=== PATIENT | male | born 1955 | race Hispanic/Latino ===

== ENCOUNTER 2019-03-26 18:21 | Inpatient (IN) | payer OTHER ==
--- OUTSIDE RECORDS SUMMARY | 2019-03-26 18:24 | XMS REPORT | Continuity of Care Document ---
:1955 Author Organization [employer] Care Team Providers Name Role Phone Kivra Unavailable Unavailable Problems Problem Status Onset Classification Date Comments Source Date Reported Depression with Active 09/01/19 Finding 09/01/[address] [facility] [place] Slurred speech Active 09/01/19 Finding 09/01/[address] [facility] [place] Hyperlipidemia Active 09/01/19 Finding 09/01/[address] [facility] [place] Tobacco abuse Active 09/01/19 Finding 09/01/[address] [facility] [place] Left sided Active 09/01/19 Finding 09/01/[address] [facility] numbness 18 [facility] [place] HTN Active 09/01/19 Finding 09/01/[address] [facility] (hypertension[facility] [place] Numbness on left Active 09/01/19 Finding 09/01/[address] [facility] side 18 [facility] [place] Weakness of left Active 09/01/19 Finding 09/01/[address] [facility] side of body 18 [facility] [place] Mixed anxiety Active 09/01/19 Finding 09/01/[address] [facility] depressive 18 [facility] - disorder [place] Hypertension Active 09/01/19 Finding 09/01/[address] [facility] [place] Migraine Active 05/17/20 Finding 09/01/[address] [facility] [place] Diabetes mellitus Active 05/17/20 Finding 09/01/[address] [facility] [place] Coronary artery Active 05/17/20 Finding 09/01/[address] [facility] disease 14 [facility] [place] Headache Active 05/17/20 Finding 09/01/[address] [facility] [place] Left-sided Active 05/17/20 Finding 09/01/[address] [facility] weakness 14 [facility] [place] History of TIA Active Finding 09/01/[address] [facility] (transient [facility] ischemic attack) [place] History of Active Finding 09/01/2017 [facility]. transient [facility] - cerebral ischemia [place] Medications Medication Details Route Status Patient Ordering Order Source Instructions Provider Date Glimepiride TWICE Active [facility] [place] Lisinopril DAILY [facility] [place] Metformin Er TWICE Active [facility]18 [facility] [place] Divalproex TWICE Active K[facility] Sodium DAILY 014 [facility] [place] Metformin Er TWICE Active Bur[facility] [place] Propranolol DAILY Active [facility] [place] Escitalopram DAILY Active [facility] 014 [facility] [place] Clopidogrel DAILY Active [facility] St[facility] Bisulfate 014 [facility] [place] Allergies, Adverse Reactions, Alerts No Known Medication Allergies Immunizations No Data Provided for This Section Results Order Name Results Value Reference Date Interpretation Comments Source Range Laboratory Bedside 179 65 - 120 09/01 [facility] Studies Glucose [facility] [place] Laboratory Creatine 2.5 0.3 - 4.0 09/01 [facility] St[facility] Studies Kinase MB /2017 [facility] [place] Laboratory Creatine 70 22 - 269 09/01 [facility] [address] Studies Kinase /2017 [facility] [place] Laboratory Troponin I <0.03 09/01 [facility] [address] Studies [facility] [place] Laboratory LDL 99 09/01 [facility] [address] Studies Cholesterol [facility] - Direct [place] Laboratory Triglycerides 413 35 - 160 09/01 [facility] [address] Studies Level /2018 [facility] [place] Laboratory Sodium Level 140 135 - 145 09/01 [facility] [address] Studies [facility] [place] Laboratory Potassium 4.1 3.6 - 5.0 09/01 [facility] [address] Studies Level /2017 [facility] [place] Laboratory Magnesium 2.0 1.8 - 2.5 09/01 [facility] [address] Studies Level /2018 [facility] [place] Laboratory LDL LDL 09/01 [facility] [address] Studies Cholesterol, Cholesterol [facility] - Calculated , [place] Calculated Laboratory HDL 20 27 - 67 09/01 [facility] [address] Studies Cholesterol [facility] [place] Laboratory Glucose Level 133 65 - 120 09/01 [facility] [address] Studies /2018 [facility] [place] Laboratory Estimat >90 90 09/01 [facility]. Studies Glomerular /2017 [facility] Filtration [place] Rate Laboratory Creatinine 0.81 0.61 - 09/01 [facility]. Studies 1.24 /2017 [facility] [place] Laboratory Cholesterol/H 8.10 09/01 [facility]. Studies DL Ratio /2017 [facility] [place] Laboratory Cholesterol 162 09/01 [facility]. Studies Level /2017 [facility] [place] Laboratory Chloride 107 101 - 111 09/01 [facility]. Studies Level /2017 [facility] [place] Laboratory Carbon 28 21 - 31 09/01 [facility]. Studies Dioxide Level /2017 [facility] [place] Laboratory Calcium Level 9.0 8.5 - 10.5 09/01 [facility]. Studies /2017 [facility] [place] Laboratory Blood Urea 14 6 - 20 09/01 [facility]. Studies Nitrogen /2017 [facility] [place] Laboratory White Blood 6.9 4.3 - 10.9 09/01 [facility]. Studies Count /2017 [facility] [place] Laboratory Red Cell 15.2 12.1 - 09/01 [facility] Studies Distribution 15.2 /2017 [facility] - Width [place] Laboratory Red Blood 4.77 4.33 - 09/01 [facility]. Studies Count 5.43 /2017 [facility] [place] Laboratory Platelet 125 152 - 406 09/01 [facility]. Studies Count /2017 [facility] [place] Laboratory Neutrophils % 44.4 41.7 - 09/01 [facility]. Studies 73.7 /2017 [facility] [place] Laboratory Monocytes % 7.4 3.3 - 12.3 09/01 [facility] [address]. Studies /2018 [facility] [place] Laboratory Mean Platelet 11.3 7.6 - 11.3 09/01 [facility]. Studies Volume /2017 [facility] [place] Laboratory Mean 83.8 80 - 100 09/01 [facility]. Studies Corpuscular /2017 [facility] - Volume [place] Laboratory Mean 33.0 32.0 - 09/01 [facility] Studies Corpuscular 36.0 [facility] - Hemoglobin [place] Concent Laboratory Mean 27.7 27.0 - 09/01 [facility]. Studies Corpuscular 35.0 [facility] - Hemoglobin [place] Laboratory Lymphocytes % 43.9 15.3 - 09/01 [facility] [address] Studies 44.8 /2017 [facility] [place] Laboratory Hemoglobin 13.2 13.6 - 09/01 [facility] [address] Studies 17.9 /2017 [facility] [place] Laboratory Hematocrit 40.0 39.6 - 09/01 [facility] [address] Studies 49.0 /2017 [facility] [place] Laboratory Eosinophils % 3.4 0 - 4.4 09/01 St. Studies /2017 [facility] [place] Laboratory Basophils % 0.9 0 - 1.3 09/01 [facility] St[facility] Studies /2017 [facility] [place] Laboratory Absolute 3.1 1.8 - 8.0 09/01 [facility]. Studies Neutrophil /2017 [facility] [place] Laboratory Absolute 0.5 0.1 - 1.3 09/01 [facility]. Studies Monocytes /2017 [facility] - (CBC) [place] Laboratory Absolute 3.1 0.7 - 4.9 09/01 [facility]. Studies Lymphocytes /2017 [facility] - (CBC) [place] Laboratory Absolute 0.2 0 - 0.5 09/01 [facility]. Studies Eosinophils /2017 [facility] - (CBC) [place] Laboratory Absolute 0.1 0 - 0.5 09/01 [facility]. Studies Basophils /2017 [facility] - (CBC) [place] Laboratory Hemoglobin 8.8 4 - 6.0 08/31 [facility]. Studies A1c [facility] [place] Laboratory Thyroid 2.93 0.34 - 08/31 [facility] Studies Stimulating 5.60 [facility] - Hormone (TSH) [place] Laboratory Urine pH 5.5 08/31 [facility] [address] Studies /2017 [facility] [place] Laboratory Urine Total Urine Total 08/31 [facility]. Studies Protein Protein /2017 [facility] [place] Laboratory Urine 1.010 08/31 [facility] [address] Studies Specific /2017 [facility] [place] Laboratory Urine Nitrite Urine 08/31 [facility]. Studies Nitrite /2017 [facility] [place] Laboratory Urine Urine 08/31 [facility]. Studies Leukocyte Leukocyte /2017 [facility] - Esterase Esterase [place] Laboratory Urine Ketones Urine 08/31 [facility]. Studies Ketones /2017 [facility] [place] Laboratory Urine Glucose Urine 08/31 [facility]. Studies Glucose /2017 [facility] [place] Laboratory Urine Blood Urine Blood 08/31 [facility] St[facility] Studies /2017 [facility] [place] Laboratory Urine WBC <5 08/31 [facility] [address] Studies /2017 [facility] [place] Laboratory Urine <5 08/31 [facility]. Studies Squamous /2017 [facility] - Epithelial [place] Cells Laboratory Urine RBC <5 08/31 [facility] St[facility] Studies /2017 [facility] [place] Laboratory Urine Culture Urine 08/31 [facility]. Studies Reflexed Culture /2017 [facility] Reflexed [place] Laboratory Urine Urine 08/31 [facility]. Studies Bacteria Bacteria /2017 [facility] [place] Laboratory B-Type 102 08/31 [facility]. Studies Natriuretic /2017 [facility] - Peptide [place] Laboratory Rapid <0.03 08/31 [facility] Studies Troponin I /2017 [facility] [place] Laboratory Total 0.6 0.3 - 1.2 08/31 [facility]. Studies Bilirubin /2017 [facility] [place] Laboratory Serum Total 7.3 6.0 - 8.3 08/31 [facility]. Studies Protein /2017 [facility] [place] Laboratory Globulin 3.2 2.3 - 3.5 08/31 [facility] St[facility] Studies /2017 [facility] [place] Laboratory Direct 0.2 0 - 0.2 08/31 [facility] Studies Bilirubin /2017 [facility] [place] Laboratory Aspartate 19 10 - 42 08/31 [facility]. Studies Amino Transf /2017 [facility] - (AST/SGOT) [place] Laboratory Alkaline 61 42 - 121 08/31 [facility]. Studies Phosphatase /2017 [facility] [place] Laboratory Albumin/Globu 1.3 1.1 - 1.8 08/31 [facility]. Studies alyson Ratio /2017 [facility] [place] Laboratory Albumin 4.1 3.2 - 5.5 08/31 [facility]. Studies /2017 [facility] [place] Laboratory Alanine 18 10 - 60 08/31 [facility]. Studies Aminotransfer /2017 [facility] ase [place] (ALT/SGPT) Laboratory Prothrombin 10.5 9.5 - 12.5 08/31 [facility]. Studies Time /2017 [facility] [place] Laboratory INR 0.89 08/31 [facility]. Studies International /2017 [facility] - Normalized [place] Ratio Laboratory Activated 24.0 24.3 - 08/31 [facility]. Studies Partial 36.9 /2018 [facility] - Thromboplast [place] Time Pathology Reports No Data Provided for This Section Diagnostic Reports No Data Provided for This Section Consultation Notes No Data Provided for This Section Discharge Summaries No Data Provided for This Section History and Physicals No Data Provided for This Section Vital Signs Vital Sign Value Date Comments Source Temperature Oral (F) 97.2 F 09/01/2017 [facility] [place] Heart Rate 58 09/01/[address] [facility] [address] [place] Respitory Rate 20 09/01/[address] [facility] [place] Systolic (mm Hg) 181 09/01/[address] [facility] [place] Diastolic (mm Hg) 82 09/01/[address] [facility] [address] [place] Height 64 08/31/[address] [facility] [place] Weight 186.00 08/31/[address] [facility] [place] Encounters Location Location Encounter Encounter Reason Attending ADM DC Status Source Details Type Number For Provider Date Date Visit [facility] St[facility] Discharged [id number] 08/31 09/01 [facility] [place] Procedures Procedure Code Date Perfomer Comments Source Barium Swallow [id number] [facility] Modified [facility] - [place] Chest Pa And [id number] [facility] Lat (2 Views) 8 - [place] Angio Aorta For [id number] [facility] Dissection 8 - [place] Chest Single [id number] [facility] View 8 - [place] Ct Stroke Brain [id number] [facility] Wo Cont 8 - [place] Assessment and Plan No Data Provided for This Section Plan of Care Plan of Care Date Source Instructions 09/01/[address] [facility] [place] DI for Stroke-Ischemic DI for Diabetes Type 2 DI for Coronary Artery Disease How to Quit Tobacco Products PROBLEM: slurred speech, left sided numbness, hypertension, depression with anxiety, Hyperlipidemia, cerebral vascular accident, History of transient ischemic attack, coronary artery disease, Diabetes mellitus, left sided weakness , Tobacco abuse GOAL: Clear understanding of disease process INSTRUCTIONS: Follow up with Dr Mckeon in 1-2 weeks Follow up with Dr Orellana in 1-2 weeks Follow up with Dr Brumfield in 1-2 weeks Instructions 09/01/[address] [facility] [address] [place] DI for Stroke-Ischemic DI for Diabetes Type 2 DI for Coronary Artery Disease How to Quit Tobacco Products PROBLEM: slurred speech, left sided numbness, hypertension, depression with anxiety, Hyperlipidemia, cerebral vascular accident, History of transient ischemic attack, coronary artery disease, Diabetes mellitus, left sided weakness , Tobacco abuse GOAL: Clear understanding of disease process INSTRUCTIONS: Follow up with Dr Mckeon in 1-2 weeks Follow up with Dr Orellana in 1-2 weeks Follow up with Dr Brumfield in 1-2 weeks Social History Social History Date Source Query Response Date Recorded Comment 07/06/1967 ERIK Damian - Mono Alcohol Use? No August 31, 2017 2:30pm CD- Drugs? No August 31, 2017 2:30pm Query Response Start Date Stop Date Smoking Status Heavy Tobacco smoker (>10 cigarettes/day) July 06[birth year] 1967 Family History Value Date Source Query Response Instance Date Recorded Comment 09/01/2017 ERIK Hagen Nurses notes 3 aneurysisms. Mother August 31, 2017 2:30pm Nurses notes lung cancer. Father August 31, 2017 2:30pm Medical History Stroke Mother August 31, 2017 2:30pm Medical History Cancer Father August 31, 2017 2:30pm Nurses notes lung cancer. May 16, 2014 3:27pm Medical History Cancer May 16, 2014 3:27pm Advance Directives Order Name Results Value Date Source Advance Directives Advance Directives Advance Directive Response Recorded Date/Time 09/01/2017 ERIK Guch[place] - Does Patient Have Living Will [place] No September 01, 2017 6:00am Durable Power of [employer] for Health Care No August 31, 2017 2:30pm Would you like additional information No August 31, 2017 2:02pm Functional Status No Data Provided for This Section
[2019-03-26] MEDS ORDERED: NA CHLORIDE 0.9% 2,000 ML ONE (19:04)
[2019-03-26 19:07] LABS: Absolute Lymphocytes (CBC) 0.6 K/uL (0.7-4.9); Basophils % 0.1 % (0-1.3); Hematocrit 36.5 % (39.6-49.0); Lymphocytes % 3.9 % (15.3-44.8); RBC Red Blood Cell Count 4.36 M/uL (4.33-5.43)
[2019-03-26 19:23] LABS: Protime INR 1.07
[2019-03-26 19:26] LABS: ALT/SGPT 16 U/L (12-78); AST/SGOT 15 U/L (15-37); Albumin 3.1 g/dL (3.4-5.0); Alkaline Phosphatase 63 U/L (45-117); BUN Blood Urea Nitrogen 19 mg/dL (7-18); Bicarbonate 25 mmol/L (21-32); Bilirubin Direct 0.1 mg/dL (0-0.2); Bilirubin Total 0.4 mg/dL (0.2-1.0); CKMB Creatine Kinase MB < 1.0 ng/mL (0.3-3.6); Creatine Phosphokinase 184 U/L (39-308); Glucose Level 245 mg/dL (74-106); Lipase 47 U/L (73-393); Potassium 4.2 mmol/L (3.5-5.1); Protein, Total 7.3 g/dL (6.4-8.2); Sodium Level 138 mmol/L (136-145); Troponin (Emerg Dept Use Only) 0.18 ng/mL (0.0-0.045)
[2019-03-26] MEDS ORDERED: FAMOTIDINE 20 MG/2 ML VIAL IV ONE (19:31)
[2019-03-26] MEDS ORDERED: ONDANSETRON 4 MG/2 ML VIAL ONE (19:31)
--- NOTE | 2019-03-26 19:39 | RAD REPORT ---
EXAM DESCRIPTION: RAD - Chest Single View - 03/26/2019 7:32 pm CLINICAL HISTORY: FEVER Chest pain. COMPARISON: Chest Pa And Lat (2 Views) dated 09/01/2017; Chest Single View dated 08/31/2017; CHEST SIN GLE VIEW dated 07/30/2011; CHEST SINGLE VIEW dated 05/23/2009 FINDINGS: Portable technique limits examination quality. The lungs are grossly clear. The heart is normal in size. No displaced fractures. IMPRESSION: No acute intrathoracic process suspected.
[2019-03-26 19:47] LABS: Blood Morphology Comment NOT SEEN (NOT SEEN); Platelet Estimate ADEQ
[2019-03-26] MEDS ORDERED: ACETAMINOPHEN 500 MG TAB ONE (19:50)
[2019-03-26] MEDS ORDERED: ASPIRIN 81 MG CHEWABLE TABLET ONE (20:11)
--- NOTE | 2019-03-26 20:20 | RAD REPORT ---
EXAM DESCRIPTION: CT - Head Brain Wo Cont - 03/26/2019 8:13 pm CLINICAL HISTORY: GALVAN, fever Headache, drowsiness COMPARISON: Ct Stroke Brain Wo Cont dated 08/31/2017; HEAD BRAIN W O CONTRAST dated 05/16/2014 TECHNIQUE: All CT scans are performed using dose optimization technique as appropriate and may inclu de automated exposure control or mA/KV adjustment according to patient size. FINDINGS: No intracranial hemorrhage, hydrocephalus or extra-axial fluid collection.No areas of brai n edema or evidence of midline shift. The paranasal sinuses and mastoids are clear. The calvarium is intact. IMPRESSION: No acute intracranial abnormality.
[2019-03-26] MEDS ORDERED: CEFTRIAXONE 1000 MG/VIAL ONE (20:43)
[2019-03-26] MEDS ORDERED: NA CHLORIDE 0.9% 100 ML IV ONE (20:43)
[2019-03-26] MEDS ORDERED: VANCOMYCIN 1 GM/VIAL ONE (21:29)
[2019-03-26] MEDS ORDERED: NA CHLORIDE 0.9% 250 ML ONE (21:30)
[2019-03-26] MEDS ORDERED: NA CHLORIDE 0.9% 1,000 ML ONE (21:30)
[2019-03-26 22:13] LABS: Urine Glucose 1+ (NEG); Urine Specific Gravity >1.030 (1.005-1.030)
[2019-03-26 22:14] LABS: Urine Blood 2+ (NEG); Urine Protein 3+ (NEG)
[2019-03-26 22:29] LABS: Urine Bacteria <20 /HPF (NONE SEEN); Urine Culture Reflex Order NOT NEEDED; Urine RBC <5 /HPF (NONE SEEN)
[2019-03-26 22:30] LABS: Urine Mucus 1+ /HPF (NONE SEEN)
--- NOTE | 2019-03-26 23:37 | ER ---
Nurse's Notes [facility] Name: Barrington Fletcher Age: 63 yrs Sex: Male : 1955 Arrival Date: 03/26/2019 Time: 18:23 Bed 5 Private MD: Diagnosis: Acute febrile illness;Leukocytosis;renal insufficiency;NSTEMI Presentation: 03/26 18:39 Presenting complaint: Patient states: I have had vomiting, Headache, chest pain, chills la1 since last night. Transition of care: patient was not received from another setting of care. Onset of symptoms was March 26, 2019. Risk Assessment: Do you want to hurt yourself or someone else? Patient reports no desire to harm self or others. Initial Sepsis Screen: Does the patient meet any 2 criteria? Temp <36.0*C (96.8*F)) or > 38.3*C (100.9*F). HR > 90 bpm. Yes Does the patient have a suspected source of infection? Yes: Productive cough/pneumonia. Care prior to arrival: None. 18:39 Method Of Arrival: Wheelchair la1 18:39 Acuity: EVIE 2 la1 18:40 Initial Sepsis Screen: If YES to both, name of provider notified: Sofi Sims MD. la1 Triage Assessment: 19:07 Headache History: The patient has had previous headaches and this one is different than ae4 previous episodes. General: Appears distressed, uncomfortable, Behavior is cooperative, appropriate for age, anxious, restless. Pain: Complains of pain in face and scalp Pain currently is 9 out of 10 on a pain scale. Pain began gradually, 1 day ago. Also complains of fever. Neuro: Level of Consciousness is awake, alert, obeys commands, Oriented to person, place, time, situation, Appropriate for age. Historical: - Allergies: 18:39 No Known Allergies; la1 - Home Meds: 19:23 divalproex 500 mg Oral Tb24 1 tab twice a day [Active]; escitalopram oxalate 10 mg Oral ak1 tab 1 tab once daily [Active]; lisinopril 20 mg Oral tab 1 tab once daily [Active]; metformin 500 mg Oral tr24 1 tab twice a day [Active]; Plavix 75 mg Oral tab 1 tab once daily [Active]; propranolol 60 mg Oral tab 1 tab daily [Active]; tramadol 50 mg Oral tab 1 tab every 4-6 hours as needed [Active]; - PMHx: 18:39 Diabetes - NIDDM; Hypertension; Myocardial infarction; x2; neuropathy; CVA; la1 - PSHx: 19:23 Carpal Tunnel Repair; cardiac stents; ak1 - Immunization history:: Adult Immunizations up to date. - Social history:: Smoking status: Patient uses tobacco products, smokes one pack cigarettes per day. - Ebola Screening: : No symptoms or risks identified at this time. - Family history:: not pertinent. - Hospitalizations: : No recent hospitalization is reported. Screenin:21 Abuse screen: Denies threats or abuse. Denies injuries from another. Nutritional ak1 screening: No deficits noted. Tuberculosis screening: No symptoms or risk factors identified. Fall Risk None identified. Assessment: 19:09 General: Appears distressed, uncomfortable, Behavior is cooperative, anxious, restless. ae4 19:21 Neuro: Level of Consciousness is awake, alert, obeys commands, Oriented to person, ak1 place, time, situation, Moves all extremities. Speech is normal. Cardiovascular: Heart tones S1 S2 Rhythm is sinus tachycardia. Respiratory: Airway is patent Respiratory effort is even, unlabored. GI: Abdomen is round non-distended, Bowel sounds present X 4 quads. Reports nausea, vomiting. : No signs and/or symptoms were reported regarding the genitourinary system. EENT: No signs and/or symptoms were reported regarding the EENT system. Derm: Reports fever. Musculoskeletal: Range of motion: intact in all extremities. 19:53 Reassessment: pt refused pain medication at this time. ak1 20:36 Reassessment: Patient appears in no apparent distress at this time. No changes from ak1 previously documented assessment. Patient and/or family updated on plan of care and expected duration. Pain level reassessed. Patient is alert, oriented x 3, equal unlabored respirations, skin warm/dry/pink. Patient states feeling better. pt no longer shaking uncontrollably. . 21:48 Reassessment: Patient appears in no apparent distress at this time. No changes from ak1 previously documented assessment. Patient and/or family updated on plan of care and expected duration. Pain level reassessed. Patient is alert, oriented x 3, equal unlabored respirations, skin warm/dry/pink. Vital Signs: 18:37 BP 166 / 64; Pulse 103; Resp 20; Temp 104.0(O); Pulse Ox 96% on R/A; Weight 81.65 kg; la1 Height 5 ft. 5 in. (165.10 cm); 19:46 BP 149 / 129; Pulse 112; Resp 17; Pulse Ox 96% on R/A; ak1 20:34 BP 169 / 54; Pulse 101; Resp 22; Temp 103.4(O); Pulse Ox 94% on R/A; Pain 0/10; ak1 21:28 BP 142 / 50; Pulse 95; Resp 23; Temp 100.9(O); Pulse Ox 95% on R/A; ak1 21:52 BP 125 / 53; Pulse 91; Resp 18; Pulse Ox 96% on R/A; ak1 23:05 Temp 99.9(O); em1 03/27 01:18 BP 105 / 44; Pulse 71; Resp 16; Temp 99.9; Pulse Ox 97% on R/A; ak1 03/26 18:37 Body Mass Index 29.95 (81.65 kg, 165.10 cm) la1 ED Course: 03/26 18:23 Patient arrived in ED. as 18:39 Arm band placed on left wrist. la1 18:40 Triage completed. la1 19:07 Inserted saline lock: 20 gauge in left antecubital area, using aseptic technique. Blood ae4 collected. 19:08 EKG done, by ED staff, reviewed by Sofi Sims MD. jb1 19:10 Bed in low position. Call light in reach. Side rails up X 1. Adult w/ patient. Cardiac ae4 monitor on. Pulse ox on. NIBP on. 19:20 Jose Nieto MD is Attending Physician. wa 19:20 Sakshi Hernandes, GIBRAN is Primary Nurse. ak1 19:21 Notified ED physician of a critical lab result(s). lactate 2.3. fc 19:33 Chest Single View XRAY In Process Unspecified. EDMS 19:47 Notified ED physician of a critical lab result(s). band of 10%. fc 20:14 CT completed. Patient tolerated procedure well. Patient moved back from CT. mw3 20:15 CT Head Brain wo Cont In Process Unspecified. EDMS 21:47 Repeat lab(s) drawn. by me, sent to lab. em1 23:35 Musa Francis DO is Hospitalizing Provider. wa 03/27 01:17 No provider procedures requiring assistance completed. Patient admitted, IV remains in ak1 place. Administered Medications: 03/26 19:07 Drug: NS 0.9% (30 ml/kg) 30 ml/kg Route: IV; Rate: bolus; Site: left antecubital; ae4 21:48 Follow up: IV Status: Completed infusion; IV Intake: 2500ml ak1 19:39 Drug: Zofran 4 mg Route: IVP; Site: left antecubital; ak1 20:04 Follow up: Response: No adverse reaction ak1 19:39 Drug: Pepcid 20 mg Route: IVP; Site: left antecubital; ak1 20:04 Follow up: Response: No adverse reaction ak1 19:52 Drug: Tylenol 1000 mg Route: PO; ak1 20:04 Follow up: Response: No adverse reaction ak1 20:34 Drug: Aspirin Chewable Tablet 324 mg Route: PO; ak1 20:37 Follow up: Response: No adverse reaction ak1 20:38 Drug: Rocephin - (cefTRIAXone) 2 grams Route: IVPB; Infused Over: 30 mins; Site: left ak1 antecubital; 21:47 Follow up: IV Status: Completed infusion; IV Intake: 100ml ak1 21:47 Drug: vancoMYCIN 1 grams Route: IVPB; Infused Over: 2 hrs; Site: left antecubital; ak1 23:50 Follow up: IV Status: Completed infusion; IV Intake: 250ml ak1 23:46 Drug: Lovenox 80 mg Route: Sub-Q; Site: left lower abdomen; ak1 23:46 Follow up: Response: No adverse reaction ak1 23:48 Not Given (Patient Refused): fentaNYL (PF) 50 mcg IVP once; RASS on ADMIN: Combtv4, ak1 Very Agttd3, Agttd2, Rstlss1, AlertClm0, Drwsy-1, Lt Sdtn-2, Mod Sdtn-3, Dp Sdtn-4, UnArsble-5 Point of Care Testing: Blood Glucose: 19:10 Blood Glucose: 245 mg/dL; ae4 Ranges: Intake: 21:47 IV: 100ml; Total: 100ml. ak1 21:48 IV: 2500ml; Total: 2600ml. ak1 23:50 IV: 250ml; Total: 2850ml. ak1 Outcome: 23:36 Decision to Hospitalize by Provider. ut 03/27 01:17 Admitted to Med/surg accompanied by tech, via stretcher, room 205, with chart, Report ak1 called to Cinthya Condition: improved Instructed on the need for admit. 01:37 Patient left the ED. ak1 Signatures: Dispatcher [employer] EDMS Adin Thompson Felicia, RN RN Sasha Monzon Eric em1 Hever Eastman RN RN Sakshi Agosto RN RN ak1 Jose Nieto MD MD wa Willis, Michelle 3 Yang Davalos RN RN ae4
--- NOTE | 2019-03-26 23:38 | EDPHYS ---
[facility] Name: Barrington Fletcher Age: 63 yrs Sex: Male : 1955 Arrival Date: 03/26/2019 Time: 18:23 Bed 5 Private MD: ED Physician Jose Nieto HPI: 03/26 19:36 This 63 yrs old Male presents to ER via Wheelchair with complaints of Headache.wa 19:36 The patient complains of pain to the generalized. The patient describes the headache as wa aching. Onset: The symptoms/episode began/occurred 1 day(s) ago. Associated signs and symptoms: Pertinent positives: fever, nausea, sinus congestion, vomiting, chills, Pertinent negatives: altered mental status, neck stiffness, Photophobia. Severity of symptoms: At its worst the pain was moderate, in the emergency department the pain is unchanged. Headache History: Denies prior headaches. The symptoms are alleviated by nothing. the symptoms are aggravated by nothing. The patient has not experienced similar symptoms in the past. The patient has not recently seen a physician. 63 yo male, c/o chills and fever. also vomiting. states GALVAN x 1 day as well. denies abd pain or diarrhea. admits to generalized body aches and back pain. also positive for chest pain. denies SOB. Historical: - Allergies: 18:39 No Known Allergies; la1 - Home Meds: 19:23 divalproex 500 mg Oral Tb24 1 tab twice a day [Active]; escitalopram oxalate 10 mg Oral ak1 tab 1 tab once daily [Active]; lisinopril 20 mg Oral tab 1 tab once daily [Active]; metformin 500 mg Oral tr24 1 tab twice a day [Active]; Plavix 75 mg Oral tab 1 tab once daily [Active]; propranolol 60 mg Oral tab 1 tab daily [Active]; tramadol 50 mg Oral tab 1 tab every 4-6 hours as needed [Active]; - PMHx: 18:39 Diabetes - NIDDM; Hypertension; Myocardial infarction; x2; neuropathy; CVA; la1 - PSHx: 19:23 Carpal Tunnel Repair; cardiac stents; ak1 - Immunization history:: Adult Immunizations up to date. - Social history:: Smoking status: Patient uses tobacco products, smokes one pack cigarettes per day. - Ebola Screening: : No symptoms or risks identified at this time. - Family history:: not pertinent. - Hospitalizations: : No recent hospitalization is reported. ROS: 19:39 Eyes: Negative for injury, pain, redness, and discharge, ENT: Negative for injury, wa pain, and discharge, Neck: Negative for injury, pain, and swelling, Respiratory: Negative for shortness of breath, cough, wheezing, and pleuritic chest pain, : Negative for injury, bleeding, discharge, and swelling, MS/Extremity: Negative for injury and deformity, Skin: Negative for injury, rash, and discoloration, Psych: Negative for depression, anxiety, suicide ideation, homicidal ideation, and hallucinations. 19:39 Constitutional: Positive for body aches, chills, fatigue, fever, malaise, Negative for weight loss. 19:39 Cardiovascular: Positive for chest pain, Negative for edema, orthopnea, palpitations. 19:39 Respiratory: Negative for cough, shortness of breath. 19:39 Abdomen/GI: Positive for nausea and vomiting, Negative for abdominal pain, diarrhea. 19:39 Back: Positive for pain at rest, of the lumbar area, left low back and right low back. 19:39 Neuro: Positive for headache, Negative for altered mental status, dizziness, speech changes, syncope. 19:39 All other systems are negative. Exam: 19:40 Head/Face: Normocephalic, atraumatic. Eyes: Pupils equal round and reactive to light, wa extra-ocular motions intact. Lids and lashes normal. Conjunctiva and sclera are non-icteric and not injected. Cornea within normal limits. Periorbital areas with no swelling, redness, or edema. ENT: Nares patent. No nasal discharge, no septal abnormalities noted. Tympanic membranes are normal and external auditory canals are clear. Oropharynx with no redness, swelling, or masses, exudates, or evidence of obstruction, uvula midline. Mucous membranes moist. Neck: Trachea midline, no thyromegaly or masses palpated, and no cervical lymphadenopathy. Supple, full range of motion without nuchal rigidity, or vertebral point tenderness. No Meningismus. Chest/axilla: Normal chest wall appearance and motion. Nontender with no deformity. No lesions are appreciated. Skin: Warm, dry with normal turgor. Normal color with no rashes, no lesions, and no evidence of cellulitis. MS/ Extremity: Pulses equal, no cyanosis. Neurovascular intact. Full, normal range of motion. Psych: Awake, alert, with orientation to person, place and time. Behavior, mood, and affect are within normal limits. 19:40 Constitutional: The patient appears in no acute distress, alert, febrile. 19:40 Cardiovascular: Rate: tachycardic, Rhythm: regular, Pulses: no pulse deficits are appreciated, Heart sounds: normal, Edema: is not appreciated, JVD: is not appreciated. 19:40 Respiratory: the patient does not display signs of respiratory distress, Respirations: normal, Breath sounds: are clear throughout, Respiratory rate: nml 19:40 Abdomen/GI: Inspection: abdomen appears normal, Bowel sounds: normal, Palpation: abdomen is soft and non-tender, in all quadrants. 19:40 Back: pain, is absent, ROM is normal, CVA tenderness, is absent. 03/27 09:00 Neuro: Orientation: is normal, Mentation: is normal, Cranial nerves: grossly normal, wa Motor: is normal. Vital Signs: 03/26 18:37 BP 166 / 64; Pulse 103; Resp 20; Temp 104.0(O); Pulse Ox 96% on R/A; Weight 81.65 kg; la1 Height 5 ft. 5 in. (165.10 cm); 19:46 BP 149 / 129; Pulse 112; Resp 17; Pulse Ox 96% on R/A; ak1 20:34 BP 169 / 54; Pulse 101; Resp 22; Temp 103.4(O); Pulse Ox 94% on R/A; Pain 0/10; ak1 21:28 BP 142 / 50; Pulse 95; Resp 23; Temp 100.9(O); Pulse Ox 95% on R/A; ak1 21:52 BP 125 / 53; Pulse 91; Resp 18; Pulse Ox 96% on R/A; ak1 23:05 Temp 99.9(O); em1 03/27 01:18 BP 105 / 44; Pulse 71; Resp 16; Temp 99.9; Pulse Ox 97% on R/A; ak1 03/26 18:37 Body Mass Index 29.95 (81.65 kg, 165.10 cm) la1 MDM: 03/26 19:20 Patient medically screened. wa 19:42 Differential diagnosis: febrile illness with GALVAN, vomiting, sinus congestion. eval to vt r/o viral vs bacterial etiology. sepsis protocol. will reassess. 23:10 Data reviewed: vital signs, nurses notes, lab test result(s), EKG, radiologic studies. vt Test interpretation: by ED physician or midlevel provider: EKG: Interp by me: HR 102. sinus tach. RBBB. diffuse ST-T changes. 23:12 Test interpretation: by ED physician or midlevel provider: labs noted for hyperglycemia vt at 245. renal insuff BUN 19, Cr 1.49. leukocytosis with bandemia. lactic acid 2.3. Troponin 0.18. UA noted for 2+ blood and 3+ protein. Response to treatment: the patient's symptoms have markedly improved after treatment. Physician consultation: Musa Francis DO. Admission orders: after a detailed discussion of the patient's condition and case, the admit orders are written by me. ED course: fluids given. abx given. pt improved. source still uncertain. states pressure in head when coughs otherwise no GALVAN. unlikely meningitis. will cover with abx empirically, admit and reassess. elevated troponin. ASA given. Will give a dose of lovenox. NSTEMI? . 03/26 18:45 Order name: Basic Metabolic Panel; Complete Time: 19:29 03/26 18:45 Order name: Blood Culture Adult (2) 03/26 18:45 Order name: CBC with Diff; Complete Time: 20:03 03/26 18:45 Order name: Ckmb; Complete Time: 19:30 03/26 18:45 Order name: CPK; Complete Time: 19:30 03/26 18:45 Order name: Lactate; Complete Time: 19:29 03/26 18:45 Order name: LFT's; Complete Time: 19:29 03/26 18:45 Order name: Lipase; Complete Time: 19:30 03/26 18:45 Order name: Procalcitonin; Complete Time: 20:03 03/26 18:45 Order name: Protime (+inr); Complete Time: 19:30 03/26 18:45 Order name: Ptt, Activated; Complete Time: 19:30 03/26 18:45 Order name: Troponin (emerg Dept Use Only); Complete Time: 19:30 la03/26 18:45 Order name: Urine Microscopic Only; Complete Time: 22:31 la 03/26 18:45 Order name: Flu; Complete Time: 20:03 [facility] 03/26 18:45 Order name: Chest Single View XRAY; Complete Time: 20:03 la1 03/26 18:45 Order name: Accucheck; Complete Time: 19:10 la 03/26 19:09 Order name: Manual Differential; Complete Time: 20:03 EDMS 03/26 19:31 Order name: CT Head Brain wo Cont; Complete Time: 20:26 wa 03/26 22:08 Order name: Urine Dipstick--Ancillary (enter results); Complete Time: 22:31 em1 03/26 22:08 Order name: Lactate Sepsis 2 HR Follow-up; Complete Time: 22:11 EDMS 03/26 22:32 Order name: Glucose, Ancillary Testing; Complete Time: 23:06 EDFL 03/26 18:45 Order name: Cardiac monitoring; Complete Time: 19:07 ri03/26 18:45 Order name: EKG - Nurse/Tech; Complete Time: 19:07 ri03/26 18:45 Order name: IV Saline Lock - Large Bore; Complete Time: 19:07 ri03/26 18:45 Order name: Labs collected and sent; Complete Time: 19:07 ri03/26 18:45 Order name: O2 Per Protocol; Complete Time: 19:07 ri03/26 18:45 Order name: O2 Sat Monitoring; Complete Time: 19:07 ri03/26 18:45 Order name: Urine Dipstick-Ancillary (obtain specimen); Complete Time: 22:07 la1 Administered Medications: 19:07 Drug: NS 0.9% (30 ml/kg) 30 ml/kg Route: IV; Rate: bolus; Site: left antecubital; ae4 21:48 Follow up: IV Status: Completed infusion; IV Intake: 2500ml ak1 19:39 Drug: Zofran 4 mg Route: IVP; Site: left antecubital; ak1 20:04 Follow up: Response: No adverse reaction ak1 19:39 Drug: Pepcid 20 mg Route: IVP; Site: left antecubital; ak1 20:04 Follow up: Response: No adverse reaction ak1 19:52 Drug: Tylenol 1000 mg Route: PO; ak1 20:04 Follow up: Response: No adverse reaction ak1 20:34 Drug: Aspirin Chewable Tablet 324 mg Route: PO; ak1 20:37 Follow up: Response: No adverse reaction ak1 20:38 Drug: Rocephin - (cefTRIAXone) 2 grams Route: IVPB; Infused Over: 30 mins; Site: left ak1 antecubital; 21:47 Follow up: IV Status: Completed infusion; IV Intake: 100ml ak1 21:47 Drug: vancoMYCIN 1 grams Route: IVPB; Infused Over: 2 hrs; Site: left antecubital; ak1 23:50 Follow up: IV Status: Completed infusion; IV Intake: 250ml ak1 23:46 Drug: Lovenox 80 mg Route: Sub-Q; Site: left lower abdomen; ak1 23:46 Follow up: Response: No adverse reaction ak1 23:48 Not Given (Patient Refused): fentaNYL (PF) 50 mcg IVP once; RASS on ADMIN: Combtv4, ak1 Very Agttd3, Agttd2, Rstlss1, AlertClm0, Drwsy-1, Lt Sdtn-2, Mod Sdtn-3, Dp Sdtn-4, UnArsble-5 Point of Care Testing: Blood Glucose: 19:10 Blood Glucose: 245 mg/dL; ae4 Ranges: Critical Glucose Levels:Adult <50 mg/dl or >400 mg/dl <40 mg/dl or >180 mg/dl Disposition: 03/26/19 23:36 Hospitalization ordered by Musa Francis for Inpatient Admission. Preliminary diagnosis are Acute febrile illness, Leukocytosis, renal insufficiency, NSTEMI. - Bed requested for Telemetry/MedSurg (Inpatient). - Status is Inpatient Admission. ak1 - Condition is Stable. - Problem is new. - Symptoms have improved. UTI on Admission? No Signatures: Dispatcher [employer] EDMS Hever Eastman RN RN Sakshi Agosto RN RN [email or web address] Poonam Fletcher RN RN Jose Nieto MD MD wa Elliott, Andrea RN RN ae4 Corrections: (The following items were deleted from the chart) 03/27 00:40 03/26 23:36 Hospitalization Ordered by Musa Francis DO for Inpatient Admission. cg Preliminary diagnosis is Acute febrile illness; Leukocytosis; renal insufficiency; NSTEMI. Bed requested for Telemetry/MedSurg (Inpatient). Status is Inpatient Admission. Condition is Stable. Problem is new. Symptoms have improved. UTI on Admission? No. vt 03/27 01:37 00:40 03/26/2019 23:36 Hospitalization Ordered by Musa Francis DO for Inpatient ak1 Admission. Preliminary diagnosis is Acute febrile illness; Leukocytosis; renal insufficiency; NSTEMI. Bed requested for Telemetry/MedSurg (Inpatient). Status is Inpatient Admission. Condition is Stable. Problem is new. Symptoms have improved. UTI on Admission? No. cg
[2019-03-26] MEDS ORDERED: ENOXAPARIN 80 MG/0.8 ML SQ ONE (23:44)
--- NOTE | 2019-03-27 00:38 | P.HP ---
Certification for Inpatient Patient admitted to: Inpatient With expected LOS: >2 Midnights Patient will require the following post-hospital care: None Practitioner: I am a practitioner with admitting privileges, knowledge of patient current condition, hospital course, and medical plan of care. Services: Services provided to patient in accordance with Admission requirements found in Title 42 Section 412.3 of the Code of Federal Regulations Patient History Date of Service: 03/27/19 Primary Care Provider: Dr. Orellana; Cardiology-Dr. Brumfield; Neurology-Dr. Mckeon; Surgery-Dr. Porras Reason for admission: Fever, chills, headache History of Present Illness: 63-year-old male presented to the emergency room with multiple complaints including fever, chills and headache. Patient with history of diabetes mellitus type 2 insulin dependent, hypertension , depression, dementia, history of TIA, hyperlipidemia, CAD with prior stent, and tobacco abuse. Patient has been having fever, chills and headaches over the last day. reports patient had nausea and vomiting last night. He denies any shortness of breath. Mild chest pain noted. Dry cough also noted. Patient slept the majority of the day. reported that she was sick last week likely with viral infection. He denies any photophobia, no neck pain. Patient came to the ER for further evaluation. In the ER patient evaluated. Vital signs stable. Fever noted. White count elevated at 16.4, hemoglobin 12.6, platelet count of 129. Patient had 84 neutrophils and 10 bands. Lactic acid initially elevated at 2.3. Pro calcitonin negative at 0.23. Troponin was elevated at 0.18. Urinalysis negative. CT head and negative. Chest x-ray negative. EKG shows no significant ST changes. Sodium 138, potassium 4.2, BUN of 19, creatinine 1.49 with a GFR 49. Glucose 245. In the ER patient received sepsis bolus. Patient also received vancomycin and Zosyn for suspected sepsis. Patient admitted for further evaluation and treatment. When I saw the patient ER, he appeared improved. Blood pressure stable. Patient recently seen by surgery for right diabetic great toe ulcer. MRI done about a month ago negative for osteomyelitis. No inflammatory changes noted. Patient had echocardiogram August 2017 which was unremarkable. Patient also had cardiac stress test unremarkable in August 2017. Patient appears stable this time. Allergies No Known Allergies Allergy (Unverified 05/16/14 15:37) Home medications list reviewed: Yes Home Medications: Clopidogrel Bisulfate [Plavix*] 75 mg PO DAILY 05/16/14 Escitalopram [Lexapro] 10 mg PO DAILY 05/16/14 Divalproex Sodium [Depakote] 500 mg PO BID #60 tablet. 05/17/14 Glimepiride [Amaryl*] 2 mg PO BID 08/31/17 Metformin ER [Glucophage ER*] 1,000 mg PO BID 08/31/17 Gabapentin 300 mg PO BID 02/24/19 Insulin Degludec [Tresiba Flextouch U-200] 20 unit SQ DAILY 02/24/19 Metoprolol Succinate/Hctz [Metoprolol ER-Hctz 25-12.5 mg] 1 each PO DAILY Rosuvastatin Calcium 20 mg PO BID 02/24/19 hydroCHLOROthiazide [Hydrodiuril] 25 mg PO DAILY 02/24/19 - Past Medical/Surgical History Diabetic: Yes -: Diabetes mellitus type 2, insulin dependent -: History of TIA -: CAD -: History of colon cancer -: HTN -: Hyperlipidemia -: Lumbar spondylosis -: Cervical spondylosis -: Depression -: Dementia -: Tobacco abuse -: Cardiac stents -: Scrotal surgery -: Bilateral carpal tunnel surgery Psychosocial/ Personal History: The patient is . He has several children. - Family History Father -: Cancer (Lung cancer) Notes: lung cancer. Mother -: Diabetes, Stroke (With history of brain aneurysm.) Notes: 3 aneurysisms. - Social History Smoking Status: Heavy Tobacco smoker (>10 cigarettes/day) Counseled patient to stop smoking for: less than 10 minutes Smoking therapy provided: Yes Patient receptive to therapy: No Alcohol use: No CD- Drugs: No Caffeine use: Yes Place of Residence: Home Review of Systems General: Fever, Chills, Weakness, Malaise, As per HPI Eyes: Unremarkable ENT: Nose Congestion, As per HPI Respiratory: Cough, As per HPI Cardiovascular: Chest Pain, As per HPI Gastrointestinal: Nausea, Vomiting, As per HPI Genitourinary: Unremarkable Musculoskeletal: Unremarkable Integumentary: Unremarkable Neurological: Unremarkable Lymphatics: Unremarkable Physical Examination - Physical Exam General: Alert, In no apparent distress, Oriented x3, Cooperative HEENT: Atraumatic, Normocephalic, PERRLA, Other (Dry mucous membranes) Neck: Supple, No Thyromegaly Respiratory: Clear to auscultation bilaterally, Normal air movement Cardiovascular: Normal pulses, Regular rate/rhythm Gastrointestinal: Normal bowel sounds, Soft and benign, Non-distended, No ascites, No tenderness, No masses, No rebound, No guarding Musculoskeletal: No erythema, No tenderness, No warmth Integumentary: No tenderness/swelling, No erythema, No warmth, No cyanosis, Other (Right great toe bandage. No erythema noted to the area of the foot) Neurological: Normal speech, Normal strength at 5/5 x4 extr, Normal tone, Normal affect - Studies Laboratory Data (last 24 hrs) 03/26/19 18:59: PT 12.6 H, INR 1.07, APTT 26.2 03/26/19 18:50: WBC 16.4 H, Hgb 12.6 L, Hct 36.5 L, Plt Count 129 L 03/26/19 18:50: Sodium 138, Potassium 4.2, BUN 19 H, Creatinine 1.46 H, Glucose 245 H, Total Bilirubin 0.4, AST 15, ALT 16, Alkaline Phosphatase 63, Lipase 47 L Microbiology Data (last 24 hrs): 03/26/19 18:56 Nasopharnyx Influenza Type A Antigen Screen - Final 03/26/19 18:56 Nasopharnyx Influenza Type B Antigen Screen - Final Assessment and Plan - Plan Impression: Fever, chills likely sepsis etiology unknown possible viral versus other infectious process Acute renal injury likely dehydration Elevated troponin with history of CAD and prior stent Diabetes mellitus type 2, insulin-dependent with hyperglycemia Hypertension Hyperlipidemia History of TIA Depression Dementia Chronic right great toe diabetic foot ulcer Tobacco abuse Plan: Fever, chills likely sepsis etiology unknown possible viral versus other infectious process: Patient will be admitted for further evaluation and treatment. Patient given sepsis bolus in the emergency room. Patient given IV antibiotic therapy as well. Chest x-ray/CT head/urinalysis negative. Possible underlying viral infection versus other bacterial process. Blood, urine culture pending. Will obtain sputum culture. Will also order echocardiogram to further assess. Troponin elevated. Will consult cardiology to further evaluate and monitor cardiac enzymes. Will provide DVT prophylaxis-Lovenox. Continue with IV vancomycin and cefepime. Pharmacy to monitor and adjust. Continue with IV fluids. Will monitor and adjust appropriately. Replacement protocol in place. Advanced directives address with patient and present. Patient is do not resuscitate. Daytime hospitalist will continue his care. Likely discharge in the next 3-5 days pending clinical improvement. Acute renal injury likely dehydration: Continue with IV fluids. Will monitor and adjust appropriately. Replacement protocol in place. Elevated troponin with history of CAD and prior stent: Patient had initial troponin elevated. Will continue to monitor cardiac enzymes and telemetry. Cardiology consulted to further evaluate. Prior echocardiogram and cardiac stress test in 2018 unremarkable. Patient may require further evaluation. Diabetes mellitus type 2, insulin-dependent with hyperglycemia: Continue with Accu-Cheks and provide sliding. May need to restart basal insulin. Hypertension: Restart home medication lisinopril 20 mg daily and metoprolol ER 25 mg daily. Will hold hydrochlorothiazide at this time. Will monitor and adjust appropriately. Hyperlipidemia: Continue Crestor 20 mg daily. History of TIA: Continue Plavix 75 mg daily. Continue DVT prophylaxis-Lovenox. Depression: Continue Lexapro 10 mg daily. Dementia: Continue Depakote 500 mg 1 pill twice daily. Chronic right great toe diabetic foot ulcer: Continue with current wound care instructions. Recent MRI done last month shows no osteomyelitis. Tobacco abuse: Continue address lifestyle modification education and tobacco cessation. Will provide nicotine patch. Discharge Plan: Home Plan to discharge in: Greater than 2 days - Advance Directives Does patient have a Living Will: No Does patient have a Durable POA for Healthcare: No - Code Status/Comfort Care Code Status Assessed: Yes (Patient is do not resuscitate.) Time Spent Managing Pts Care (In Minutes): 55
[2019-03-27] MEDS ORDERED: ACETAMINOPHEN 500 MG TAB PO PRN (01:43)
[2019-03-27 01:54] VITALS: BMI 33.4
[2019-03-27] MEDS: NACHLORIDE 0.45% 1,000 ML IV SCH ×4 (03:10→21:43)
--- NOTE | 2019-03-27 03:23 | P.INFCA ---
Sepsis Focused Assessment - Focused Assessment Complete? Sepsis Focused Assessment Completed?: Yes - Sepsis Screen Result Severe Sepsis: Positive Septic Shock: Negative - Vital Signs Reviewed: Yes Temperature: 98.1 F Heart rate: 68 Blood Pressure: 118/57 Respiratory Rate: 16 O2 Sat by Pulse Oximetry: 98 - Examination Date exam was performed: 03/27/19 Time exam was performed: 03:22 Heart: Regular rate/rhythm Lungs: Clear bilaterally Peripheral pulses: 3+ Normal Peripheral pulse location: Radial Capillary refill: >2 Seconds Skin examination: Normal turgor
[2019-03-27] MEDS: INSULIN -REGULAR HUMAN 50 UNIT/0.5 ML ML SQ SCH ×4 (07:30→21:00)
[2019-03-27 08:00] LABS: CKMB Creatine Kinase MB 1.7 ng/mL (0.3-3.6); Thyroid Stimulating Hormone 1.65 uIU/mL (0.360-3.740); Troponin I 0.12 ng/mL (0.0-0.045)
[2019-03-27] MEDS ORDERED: VANCOMYCIN 1.25 GM in NA CHLORIDE 0.9% 250 ML IVPB ONE (09:00)
[2019-03-27] MEDS ORDERED: FAMOTIDINE 20 MG TAB PO SCH (09:00)
[2019-03-27] MEDS ORDERED: ENOXAPARIN 40 MG/0.4 ML SQ SCH (09:00)
[2019-03-27] MEDS ORDERED: CEFEPIME 1 GM/VIAL IV SCH (09:00)
[2019-03-27] MEDS: ACETAMINOPHEN 325 MG TABLET PO PRN ×4 (09:24→21:36)
[2019-03-27] MEDS: CEFEPIME/SWI 1gm 10 ML IVP SCH (09:24)
[2019-03-27] MEDS: ESCITALOPRAM 20 MG TAB PO SCH (09:25)
[2019-03-27] MEDS: METOPROLOL XL 25 MG TAB PO SCH (09:25)
[2019-03-27] MEDS: CLOPIDOGREL 75 MG TABLET PO SCH (09:26)
[2019-03-27] MEDS: DIVALPROEX DR 500MG TAB PO SCH ×2 (09:26→21:37)
[2019-03-27] MEDS: FAMOTIDINE 20 MG TAB PO SCH (09:26)
--- NOTE | 2019-03-27 11:01 | PN ---
Date of Progress Note: 03/27/2019 Subjective: Patient is seen and examined. Chart reviewed and case discussed with RN. The patient continues to have tremors and chills. Complains of some mild headache. Medications: List reviewed. Code Status: Do not attempt resuscitation. Physical Examination: Vital Signs: T-max 101.9, heart rate 67, blood pressure 133/63, respirations 15. O2 at 96% on room air. General: Awake, alert, oriented x3, in some mild distress, ill-appearing male, obese. CV: S1 and S2. Regular rate and rhythm. Peripheral pulses present. Respiratory: Moving air well bilaterally. No wheezing or stridor. Gastrointestinal: Abdomen is soft, nontender, nondistended. Positive bowel sounds. Extremities: No clubbing, cyanosis, or edema. Neuro: Cranial nerves 2 through 12 intact grossly. No focal neurological deficit. Speech is normal. Laboratory Data: CK level is 466. Troponin is 0.18 and 0.12. Triglycerides 146, cholesterol 98, LDL 43, HDL 26, TSH 1.65. Lactate down to 1.2. Blood glucose level 131 and 197. Blood cultures pending. Influenza screen is negative. Sputum cultures are pending. Assessment And Plan: A 63-year-old male with. 1. Sepsis. The patient received sepsis IV fluid bolus. Source unclear. Likely foot wound versus viral or other bacterial process. No signs of meningitis. We will continue with broad-spectrum IV antibiotics and follow up on cultures. Imaging studies negative. Influenza screen is also negative. The patient continues to have high spiking fevers. We will continue with IV antibiotics and monitor. 2. Acute kidney injury likely secondary to above. We will continue to monitor. Continue with IV fluids. 3. Elevated troponin level with history of coronary artery disease and prior stent. We will continue with home medications. Continue to monitor troponin level, trending down. No ST-elevation on EKG. Cardiology consulted. 4. Diabetes mellitus type 2, insulin requiring with hyperglycemia. Continue with sliding scale insulin and monitor blood glucose levels. 5. Coronary artery disease, [place] artery and [place] heart, status post stent without angina. 6. Essential hypertension. Continue home medications. Hold HCTZ and IVY inhibitor. 7. Hyperlipidemia. Continue Crestor. 8. History of transient ischemic attack. Continue Plavix. 9. Major depressive disorder, single episode, in remission. We will continue Lexapro. 10. Dementia, likely vascular. The patient is on Depakote. 11. Subacute on chronic great toe diabetic foot ulcer. Recent MRI did not show any osteo. Patient does have pustular drainage from the wound. We will consult Dr. Porras, who did recent surgery and obtain wound cultures. 12. Nicotine dependence with cigarette smoking counseled. Continue nicotine patch. 13. Deep vein thrombosis prophylaxis with Lovenox. SA/MODAi Voice ID: [id number] Report ID: [id number] [id number]
--- NOTE | 2019-03-27 13:19 | EKG ---
Test Date: 2019-03-26 Test Time: 18:55:08 Dampener Operator: MATTHEW MEASUREMENT RESULTS: Intervals: Rate: 102 LA: 144 QRSD: 122 QT: 348 QTc: 453 [place]: P: 43 LA: 144 QRS: 105 T: 52 INTERPRETIVE STATEMENTS: Sinus tachycardia Right bundle branch block Abnormal ECG Compared to ECG 08/31/2017 10:53:11 Sinus rhythm no longer present Electronically Signed On 03-27-19 13:18:32 CDT by Saurabh Campbell
[2019-03-27 13:46] LABS: CKMB Creatine Kinase MB 1.4 ng/mL (0.3-3.6); Troponin I 0.14 ng/mL (0.0-0.045)
[2019-03-27] MEDS: ENOXAPARIN 40 MG/0.4 ML SQ SCH (14:07)
[2019-03-27] MEDS: OSELTAMIVIR 75 MG CAP PO SCH ×2 (14:07→21:38)
--- NOTE | 2019-03-27 15:37 | CON ---
Date of Consultation: 03/27/2019 Reason For Consultation: Fever, right toe infection. History Of Present Illness: Patient is a 63-year-old gentleman, who presented to the emergency room with 2-day history of fever, chills, and headache especially after coughing, is the patient who I hav e been following him in the wound healing center for right toe infection. He did have a diabetic [facility] er. We did an x-ray, which was not suggestive of osteo, just inflammation. He was treated with anti biotics. He was improving. He also had an MRI about a month ago, which was negative for osteo. I s aw him last week and his wound looked good. He is on Hillary dressing, however, the last couple of da ys, the toe has become worse and he also had some nausea and vomiting yesterday. No shortness of lina ath. No sore throat, runny nose, cough, except for some dry cough, which causes patient's headache. He does have fever and chills. Past Medical History: Significant for type 2 diabetes, history of TIA, coronary artery disease, hist ory of colon cancer, hypertension, hyperlipidemia, lumbar spondylosis, cervical spondylosis, depressi on, dementia, tobacco abuse. Past Surgical History: Scrotal surgery, cardiac surgery, carpal tunnel surgery. Allergies: NONE. Social History: He does smoke. Denies drinking alcohol. He was counseled regarding smoking. Family History: Significant for diabetes, stroke, and brain aneurysm in the mother, lung cancer in t he father. Physical Examination: Current Vital Signs: Blood pressure of 160/58, pulse rate 88, respiratory rate 18, temperature 101.9 . General: He is awake, alert, and oriented x3. Head And Neck: Cranial nerves 2 through 12 are grossly within normal limits. No neck masses. No JV D. Throat clear. Neck is supple. Chest: Clear. Heart: S1, S2. Abdomen: Soft, nondistended, nontender. Positive bowel sounds. Extremities: Palpable dorsalis pedis pulse, however, the posterior tibial is diminished. Right grea t toe has increasing redness. There is small amount of fluid trapped in the ulcer, appears that the skin is overgrown, but there is some fluctuance to it. There was some pus that came out of it, which was cultured by the nurse at the bedside under sterile condition. I did debride the wound a little bit more to prevent fluid from accumulating inside the ulcer and this was done with 11 blade. Approx imately a 1 cm area was excised down through to the subcutaneous tissue. Patient has no feeling, so he did not require any anesthetic and he tolerated the procedure well. Wet-to-dry normal saline dres sing change was applied. Laboratory Data: Significant for white count of 16.4 with a left shift. Bands are 10. His INR is 1 .07. His chemistry is reviewed. His lactic acid was 2.3 yesterday and it came down to 1.2. Procalc itonin was 0.23. He had a chest x-ray and CT of the head, which were negative. Assessment: A 63-year-old gentleman with multiple medical problems with sepsis, etiology could be vi ral in nature based on overall symptomology, however, the right great toe does look worse. Plan: Recommendation would be to continue IV antibiotics. We will get an MRI of the right great toe as well as arterial Doppler to assess his vascular status and will make further recommendation after the aforementioned workup is completed. Currently, the patient is on vancomycin and cefepime, which should suffice and we will adjust the antibiotics based on the cultures, which are pending at this t [facility]. GWENDOLYN/MARGOTHL Voice ID: [id number] Report ID: [id number]
[2019-03-27] MEDS ORDERED: VANCOMYCIN 1.5 GM in NA CHLORIDE 0.9% 500 ML IVPB SCH (18:00)
--- NOTE | 2019-03-27 18:15 | RAD REPORT ---
EXAM DESCRIPTION: US - Lower Extremity Arterial Bilat - 03/27/2019 5:52 pm CLINICAL HISTORY: Right foot ulcer, leg pain COMPARISON: None. TECHNIQUE: Waveforms were obtained along the length of each lower extremity. Visual inspection of th e lower extremity arterial tree performed. FINDINGS: Right lower extremity triphasic waveform pattern is seen in the common femoral, superficia l femoral and popliteal arteries. At the ankle the posterior tibial and dorsalis pedis artery show bi phasic waveform patterns. Atherosclerotic changes are mild with no occlusion or focal flow restrictin g lesion identifiable. Left lower extremity shows a similar triphasic waveform pattern in the common femoral, superficial fe moral and popliteal arteries. Left dorsalis pedis and posterior tibial arteries are biphasic in wavef orm. Again, atherosclerotic changes are mild with no occlusion or focal flow restricting lesion. IMPRESSION: Mild atherosclerotic changes in the booth of the bilateral lower extremity arterial tree . No occlusion or focal flow restricting lesion.
[2019-03-27] MEDS ORDERED: LISINOPRIL 10 MG TAB PO SCH (21:00)
[2019-03-27] MEDS: ROSUVASTATIN 10 MG TAB PO SCH (21:36)
[2019-03-28] MEDS: ACETAMINOPHEN 325 MG TABLET PO PRN ×4 (02:38→21:37)
[2019-03-28 06:11] LABS: Absolute Lymphocytes (CBC) 0.8 K/uL (0.7-4.9); Basophils % 0.5 % (0-1.3); Hematocrit 33.1 % (39.6-49.0); MPV 11.6 fL (7.6-11.3); RBC Red Blood Cell Count 3.94 M/uL (4.33-5.43)
[2019-03-28 06:12] LABS: Magnesium 2.2 mg/dL (1.8-2.4)
[2019-03-28] MEDS: NACHLORIDE 0.45% 1,000 ML IV SCH ×2 (07:18→17:43)
[2019-03-28] MEDS: INSULIN -REGULAR HUMAN 50 UNIT/0.5 ML ML SQ SCH ×4 (07:30→21:00)
--- NOTE | 2019-03-28 08:56 | RAD REPORT ---
EXAM DESCRIPTION: MRI - Foot Right Wo Cont - 03/28/2019 8:28 am CLINICAL HISTORY: RIGHT GREAT TOE FOOT ULCER Foot ulcer. COMPARISON: Foot Right Wo Cont dated 03/02/2019 FINDINGS: Soft tissue edema and thickening is present in both the distal aspect of the great toe. Th e distal phalanx demonstrates areas of mild reduced T1 marrow signal and elevated T2/IR signal along the distal dorsal aspect of the toe compatible with mild osteomyelitis. No drainable fluid collection seen. No osteomyelitis seen elsewhere within the foot. No fracture or subluxation. Plantar fascia an d Achilles tendon are normal in thickness. IMPRESSION: Early/mild osteomyelitis suspected involving the distal phalanx of the great toe along t he dorsal aspect.
[2019-03-28] MEDS: INSULIN DEGLUDEC 20 UNIT SQ SCH (09:00)
--- NOTE | 2019-03-28 09:04 | CON ---
Date of Consultation: 03/27/2019 Reason For Consultation: Elevated troponin, sepsis and foot ulcers. History Of Present Illness: Mr. Fletcher is 63, has a history of dementia, depression, seizure disorde r, hypertension, diabetes, history of TIA, history of CAD, status post stent, continuing tobacco use, dementia, is a do not resuscitate, came in with sepsis, probably secondary to his foot ulcers. Trop onin is elevated. No chest pain reported. Past Medical History: As stated above. Allergies: NONE. Review of Systems: Negative. Social History: Negative. Family History: Negative. Medications: At home include Lexapro, Depakote, metoprolol, insulin, lisinopril and hydrochlorothiaz fabienne. Physical Examination: General: He was somnolent. He is oriented to name and place. Vital Signs: His temperature was 104 with blood pressure of 166/64. HEENT: Negative. Neck: Supple with no bruit. Chest: Clear. Cardiac: Revealed regular rhythm and rate with S4 gallops. No murmurs or rubs. Abdomen: Benign. Extremities: Revealed foot ulcers in the left. Diagnostic Data: His glucose is 131, creatinine is 1.46. His troponin is 0.18 and then went down to 0.12. Impression And Plan: Elevated troponin secondary to fever and sepsis. We would get an echocardiogra m to rule out wall motion abnormalities. The patient has a history of coronary artery disease, statu s post PCI that seems to be stable. He has no chest pain. He is do not resuscitate and has dementia . I doubt we are going to do any invasive workup on him at this point. His hypertension is reasonab ly well controlled. His diabetes is reasonably well controlled. He has had transient ischemic attac k in the past. He has renal insufficiency that is moderate. He has a foot ulcer that needs to be ad dressed. A new surgical consultation is obtained. We will continue to follow him. EMORY/ALEX Voice ID: [id number] Report ID: [id number]
[2019-03-28] MEDS: CEFEPIME/SWI 1gm 10 ML IVP SCH (10:08)
[2019-03-28] MEDS: ENOXAPARIN 40 MG/0.4 ML SQ SCH (10:09)
[2019-03-28] MEDS: ESCITALOPRAM 20 MG TAB PO SCH (10:10)
[2019-03-28] MEDS: CLOPIDOGREL 75 MG TABLET PO SCH (10:10)
[2019-03-28] MEDS: OSELTAMIVIR 75 MG CAP PO SCH ×2 (10:10→21:00)
[2019-03-28] MEDS: DIVALPROEX DR 500MG TAB PO SCH ×2 (10:11→21:37)
[2019-03-28] MEDS: METOPROLOL XL 25 MG TAB PO SCH (10:11)
[2019-03-28] MEDS: FAMOTIDINE 20 MG TAB PO SCH (10:30)
[2019-03-28] MEDS: VANCOMYCIN 1.5 GM in NA CHLORIDE 0.9% 500 ML IVPB SCH (10:31)
[2019-03-28] MEDS ORDERED: HYDRALAZINE HCL 20 MG/ML VIAL ONE (10:47)
[2019-03-28] MEDS ORDERED: NITROGLYCERIN 0.4 MG/TAB SL ONE ×2 (10:48→10:52)
[2019-03-28] MEDS: HYDRALAZINE HCL 20 MG/ML VIAL IV PRN ×3 (10:51→21:38)
[2019-03-28] MEDS ORDERED: NITROGLYCERIN 0.4 MG/TAB SL PRN (10:56)
[2019-03-28] MEDS ORDERED: LORazepam 2 MG/ML VIAL IV ONE (10:56)
--- NOTE | 2019-03-28 13:02 | ECHO ---
HEIGHT: 5 ft 4 in WEIGHT: 194 lb 9.6 oz DATE OF STUDY: 03/28/[address]: Musa Francis DO 2-DIMENSIONAL: YES M.MODE: YES DOPPLER: YES COLOR FLOW: YES TDS: NO PORTABLE: NO DEFINITY: NO BUBBLE STUDY: NO DIAGNOSIS: SEPSIS CARDIAC HISTORY: CATHERIZATION: YES SURGERY: NO PROSTHETIC VALVE: NO PACEMAKER: NO MEASUREMENTS (cm) DIASTOLIC (NORMALS) SYSTOLIC (NORMALS) IVSd 1.1 (0.6-1.2) LA Diam 3.4 (1.9-4.0) LVEF 67% LVIDd 4.6 (3.5-5.7) LVIDs 2.9 (2.0-3.5) %FS 37% LVPWd 1.1 (0.6-1.2) Ao Diam 2.4 (2.0-3.7) 2 DIMENSIONAL ASSESSMENT: RIGHT ATRIUM: NORMAL LEFT ATRIUM: NORMAL RIGHT VENTRICLE: NORMAL LEFT VENTRICLE: NORMAL TRICUSPID VALVE: NORMAL MITRAL VALVE: NORMAL PULMONIC VALVE: NORMAL AORTIC VALVE: NORMAL PERICARDIAL EFFUSION: NONE AORTIC ROOT: NORMAL LEFT VENTRICULAR WALL MOTION: NORMAL. DOPPLER/COLOR FLOW: TRACE OF MITRAL REGURGITATION OTHERWISE NORMAL. COMMENTS: NORMAL 2D ECHO WITH A TRACE OF MITRAL REGURGITATION. TECHNOLOGIST: STEPHANIE SCHMIDT
--- NOTE | 2019-03-28 13:26 | PN ---
Date of Progress Note: 03/28/2019 Subjective: Patient went for MRI of the foot. After returning the patient started having headache a nd then started having his tremor episode again. No seizure-type activity witnessed and blood pressu re was elevated, improved with nitroglycerin and hydralazine. Medications List: Reviewed. Physical Examination: Vital Signs: Temperature 98.5, heart rate 75, blood pressure 161/70, respirations 18, O2 at 93% on r oom air. General: Awake, alert, oriented x3, in some moderate distress. Ill-appearing male, appears older th an stated age. Obese, BMI 33. CV: S1 and S2. Peripheral pulses weak. Regular rate and rhythm. Respiratory: Moving air well bila terally. No wheezing or stridor Gastrointestinal: Abdomen is soft, nontender, nondistended. Positi ve bowel sounds. No guarding or rigidity. Extremities: No clubbing, cyanosis, or edema. Neurologic: Nonfocal. Patient having tremors in the whole body and chills. Awake and alert, orient ed x3. Skin: Right first digit, mild erythema, warm to touch with wound on the medial aspect with some drai nage. Laboratory Data: Sodium 138, potassium 4, chloride 105, CO2 of 27, BUN 23, creatinine 1.19, glucose is 134, calcium 7.7, magnesium 2.2. WBC 8.3, H and H 11 and 33.1, platelets 119. Blood cultures preliminarily showing beta-hemolytic strep. Sputum cultures pending. Wound cultures from the right toe showing 3+ gram-negative rods. MRI of the foot personally reviewed, shows early m ild osteomyelitis suspected involving the distal phalanx of the great toe along the dorsal aspect. Assessment: A 63-year-old male with: 1.Sepsis secondary to osteomyelitis of the foot, possible influenza and bacteremia. Blood cultures growing out strep. Wound cultures from the toe are growing out gram-negative rods. The patient had high fevers, currently having low-grade fevers, 99. WBC count is improving. We will continue broad- spectrum IV antibiotics and follow up on final ID and sensitivity of the cultures. 2.Osteomyelitis of the right first toe. Dr. Porras has been consulted. Will likely need amputation. Follow up on wound cultures, currently growing gram-negative rods. 3.Bacteremia secondary to strep. We will continue IV antibiotics and follow up on final culture res ults. 4.Elevated troponin level likely secondary to sepsis. Appreciate Cardiology input. No intervention planned at this time. We will continue to monitor. 5.Acute kidney injury secondary to sepsis. Creatinine is now back to baseline. We will continue to monitor. Continue IV fluids. 6.Tremors, unclear etiology, likely related to anxiety and possible chills and from fever, improved with medication and redirection. 7.Headache, likely related to uncontrolled blood pressure. 8.Essential hypertension. Blood pressure in the 200s systolic this morning, improved with IV hydral azine and nitroglycerin. We will adjust home medications. Currently, his hydrochlorothiazide and AC E inhibitors being held. We will resume due to kidney function normalizing. 9.Coronary artery disease [place] artery and [place] heart status post stent with angina, improved. 10.Diabetes mellitus type 2, insulin requiring with hyperglycemia. We will continue sliding scale i nsulin. Monitor blood glucose levels. 11.Mixed hyperlipidemia. We will continue Crestor. 12.History of transient ischemic attack. Continue Plavix. 13.Major depressive disorder, single episode, in remission. We will continue Lexapro. 14.Vascular dementia. 15.Nicotine dependence with cigarette smoking counseled. We will continue nicotine patch. 16.Deep venous thrombosis prophylaxis with Lovenox. 17.Diabetic foot ulcer, first toe on the right. Continue antibiotics and wound care. /ALEX Voice ID: [id number] Report ID: [id number]
--- NOTE | 2019-03-28 13:35 | EKG ---
Test Date: 2019-03-28 Test Time: 10:45:44 Ladle Cleaner: MIKO MEASUREMENT RESULTS: Intervals: Rate: 80 CO: 154 QRSD: 118 QT: 412 QTc: 475 [place]: P: 36 CO: 154 QRS: 87 T: 33 INTERPRETIVE STATEMENTS: Normal sinus rhythm Low voltage QRS Right bundle branch block Abnormal ECG Compared to ECG 03/26/2019 18:55:08 Low QRS voltage now present Sinus tachycardia no longer present Electronically Signed On 03-28-19 13:34:20 CDT by Andrews Brumfield
--- NOTE | 2019-03-28 16:55 | RAD REPORT ---
EXAM DESCRIPTION: RAD - Chest Single View - 03/28/2019 4:44 pm CLINICAL HISTORY: Device placement PICC line placement . IMPRESSION: PICC line with its tip 1 centimeter into the right atrium
[2019-03-28] MEDS: TRAMADOL HCL 50 MG TAB PO PRN (17:52)
[2019-03-28] MEDS: ONDANSETRON 4 MG/2 ML VIAL IV PRN (18:39)
--- NOTE | 2019-03-28 19:29 | PN ---
Date of Progress Note: 03/28/2019 Subjective: The patient is awake and alert. No complaints. Vital signs are stable. Afebrile. MRI shows early osteomyelitis distal phalanx. Arterial Doppler reviewed. Physical Examination: No significant change. Cultures pending. Assessment: Toe infection with wound with osteomyelitis. Recommendations: Wound care is ordered. PICC line. Six weeks of IV antibiotics based on the cultur e report. We will try conservative treatment. No need for amputation at this time. Discussed with Dr. Thompson. /MODL Voice ID: [id number] Report ID: [id number]
[2019-03-28] MEDS: ROSUVASTATIN 10 MG TAB PO SCH (21:37)
[2019-03-29] MEDS: NACHLORIDE 0.45% 1,000 ML IV SCH ×3 (03:02→17:44)
[2019-03-29] MEDS: HYDRALAZINE HCL 20 MG/ML VIAL IV PRN ×3 (05:05→18:46)
[2019-03-29 05:26] LABS: Absolute Lymphocytes (CBC) 1.2 K/uL (0.7-4.9); Basophils % 0.6 % (0-1.3); Hematocrit 30.4 % (39.6-49.0); Lymphocytes % 13.4 % (15.3-44.8); MPV 10.5 fL (7.6-11.3); RBC Red Blood Cell Count 3.65 M/uL (4.33-5.43)
[2019-03-29 05:40] LABS: Magnesium 2.2 mg/dL (1.8-2.4); Potassium 3.8 mmol/L (3.5-5.1)
[2019-03-29] MEDS: INSULIN -REGULAR HUMAN 50 UNIT/0.5 ML ML SQ SCH ×4 (07:30→21:00)
[2019-03-29] MEDS: TRAMADOL HCL 50 MG TAB PO PRN ×2 (08:27→22:25)
[2019-03-29] MEDS: METOPROLOL XL 25 MG TAB PO SCH (08:27)
[2019-03-29] MEDS: FAMOTIDINE 20 MG TAB PO SCH (08:28)
[2019-03-29] MEDS: CLOPIDOGREL 75 MG TABLET PO SCH (08:28)
[2019-03-29] MEDS: ESCITALOPRAM 20 MG TAB PO SCH (08:29)
[2019-03-29] MEDS: hydroCHLOROthiazide 25 MG TAB PO SCH (08:30)
[2019-03-29] MEDS: OSELTAMIVIR 75 MG CAP PO SCH ×2 (08:30→22:02)
[2019-03-29] MEDS: LISINOPRIL 20 MG TAB PO SCH (08:31)
[2019-03-29] MEDS: ENOXAPARIN 40 MG/0.4 ML SQ SCH (08:32)
[2019-03-29] MEDS: DIVALPROEX DR 500MG TAB PO SCH ×2 (08:38→22:03)
[2019-03-29] MEDS ORDERED: POTASSIUM CL SA 10 MEQ TAB PO ONE (09:00)
[2019-03-29] MEDS: INSULIN DEGLUDEC 20 UNIT SQ SCH (09:00)
[2019-03-29] MEDS: VANCOMYCIN 1.5 GM in NA CHLORIDE 0.9% 500 ML IVPB SCH (10:39)
[2019-03-29] MEDS: CEFEPIME/SWI 1gm 10 ML IVP SCH (10:39)
--- NOTE | 2019-03-29 12:15 | PN ---
Subjective: Patient is awake, alert, no complaints. He has a PICC line in. Vital signs stable. Af ebrile. So, far the culture show Klebsiella in the wound, sensitive to all the antibiotics and he al so has Streptococcus in the blood. Physical Examination: No changes. Assessment: Right foot osteomyelitis with a wound, sepsis. Recommendations: IV antibiotics per sensitivity, probably vancomycin should suffice. Discharge Planning: Wound care as ordered and [facility] in my clinic 1 w kusum upon discharge. GWENDOLYN/MODL Voice ID: [id number] Report ID: [id number]
--- NOTE | 2019-03-29 13:58 | P.PN ---
Subjective Date of Service: 03/29/19 Primary Care Provider: Dr. Orellana; Cardiology-Dr. Brumfield; Neurology-Dr. Mckeon; Surgery-Dr. Porras Chief Complaint: Fever, chills, headache Patient seen and examined at bedside. Chart reviewed and case discussed with nursing staff. at bedside. No acute events noted overnight. complaining of headache this am. Review of Systems 10-point ROS is otherwise unremarkable Physical Examination - Vital Signs Temperature: 97.6 F Blood Pressure: 164/60 Pulse: 77 Respirations: 16 Pulse Ox (%): 98 - Physical Exam General: Alert, In no apparent distress, Oriented x3 HEENT: Atraumatic, PERRLA, EOMI Neck: Supple, JVD not distended Respiratory: Clear to auscultation bilaterally, Normal air movement Cardiovascular: Regular rate/rhythm, Normal S1 S2 Gastrointestinal: Normal bowel sounds, No tenderness Musculoskeletal: No tenderness Integumentary: No rashes, Other (Right first digit, mild erythema, warm to touch with wound on the medial aspect with some drainage) Neurological: Normal speech, Normal tone, Normal affect Lymphatics: No axilla or inguinal lymphadenopathy - Studies Microbiology Data (last 24 hrs): 03/26/19 18:59 Blood - Blood Aerobic Blood Culture - Final Streptococcus Agalactiae [facility] 03/26/19 18:59 Blood - Blood Gram Stain - Final 03/26/19 18:59 Blood - Blood Anaerobic Blood Culture - Final Streptococcus Agalactiae [facility] 03/26/19 18:59 Blood - Blood Gram Stain - Final 03/26/19 19:05 Blood - Blood Aerobic Blood Culture - Final Streptococcus Agalactiae [facility] 03/26/19 19:05 Blood - Blood Gram Stain - Final 03/26/19 19:05 Blood - Blood Anaerobic Blood Culture - Final Streptococcus Agalactiae [facility] 03/26/19 19:05 Blood - Blood Gram Stain - Final Assessment And Plan - Plan A 63-year-old male with: 1. Sepsis secondary to osteomyelitis of the foot and bacteremia. Blood cultures growing out strep. Wound cultures from the toe are growing out Klebsiella. The patient had high fevers, currently afebrile for almost 24 hrs. WBC count now normal. IV antibioitics adjusted. He will require IV antibiotics x 6 weeks. SW on board to set up for IV antibiotics. 2. Osteomyelitis of the right first toe. Dr. Porras has been consulted. Recommendations appreciated. Trial of conservative managemetn at this time, no surgical amputation planned at this time. 3. Bacteremia secondary to strep. We will continue IV antibiotics. 4. Elevated troponin level likely secondary to sepsis. Appreciate Cardiology input. No intervention planned at this time. We will continue to monitor. 5. Acute kidney injury secondary to sepsis. Creatinine is now back to baseline. We will continue to monitor. Continue IV fluids. 6. Tremors, unclear etiology, likely related to anxiety and possible chills and from fever, improved with medication and redirection. 7. Headache, likely related to uncontrolled blood pressure. 8. Essential hypertension. Blood pressure in the 200s systolic this morning, improved with IV hydralazine and nitroglycerin. We will adjust home medications. Currently, his hydrochlorothiazide and IVY inhibitors being held. We will resume due to kidney function normalizing. 9. Coronary artery disease [place] artery and [place] heart status post stent with angina, improved. 10. Diabetes mellitus type 2, insulin requiring with hyperglycemia. We will continue sliding scale insulin. Monitor blood glucose levels. 11. Mixed hyperlipidemia. We will continue Crestor. 12. History of transient ischemic attack. Continue Plavix. 13. Major depressive disorder, single episode, in remission. We will continue Lexapro. 14. Vascular dementia. 15. Nicotine dependence with cigarette smoking counseled. We will continue nicotine patch. 16. Deep venous thrombosis prophylaxis with Lovenox. 17. Diabetic foot ulcer, first toe on the right. Continue antibiotics and wound care. Disposition: Pending set up of IV antibiotics at home for 6 weeks course.
[2019-03-29] MEDS: ACETAMINOPHEN 325 MG TABLET PO PRN (17:44)
[2019-03-29] MEDS: ROSUVASTATIN 10 MG TAB PO SCH (22:02)
[2019-03-29] MEDS: Levofloxacin 750mg IV 750 MG/150 ML BAG IV SCH (22:02)
[2019-03-30] MEDS: NACHLORIDE 0.45% 1,000 ML IV SCH ×2 (00:41→09:43)
[2019-03-30] MEDS: HYDRALAZINE HCL 20 MG/ML VIAL IV PRN ×2 (01:29→12:33)
[2019-03-30] MEDS: ONDANSETRON 4 MG/2 ML VIAL IV PRN (03:49)
[2019-03-30] MEDS: ACETAMINOPHEN 325 MG TABLET PO PRN ×2 (03:54→16:05)
[2019-03-30 04:43] LABS: Absolute Lymphocytes (CBC) 1.3 K/uL (0.7-4.9); Basophils % 0.3 % (0-1.3); Hematocrit 31.3 % (39.6-49.0); MPV 10.2 fL (7.6-11.3); RBC Red Blood Cell Count 3.73 M/uL (4.33-5.43)
[2019-03-30 04:56] LABS: Magnesium 2.2 mg/dL (1.8-2.4); Potassium 3.6 mmol/L (3.5-5.1)
[2019-03-30] MEDS ORDERED: POTASSIUM CL SA 10 MEQ TAB PO ONE (05:04)
[2019-03-30] MEDS: INSULIN -REGULAR HUMAN 50 UNIT/0.5 ML ML SQ SCH ×2 (07:30→12:32)
[2019-03-30] MEDS: CLOPIDOGREL 75 MG TABLET PO SCH (08:30)
[2019-03-30] MEDS: hydroCHLOROthiazide 25 MG TAB PO SCH (08:30)
[2019-03-30] MEDS: ESCITALOPRAM 20 MG TAB PO SCH (08:30)
[2019-03-30] MEDS: OSELTAMIVIR 75 MG CAP PO SCH (08:30)
[2019-03-30] MEDS: LISINOPRIL 20 MG TAB PO SCH (08:30)
[2019-03-30] MEDS: ENOXAPARIN 40 MG/0.4 ML SQ SCH (08:30)
[2019-03-30] MEDS: DIVALPROEX DR 500MG TAB PO SCH (08:31)
[2019-03-30] MEDS: METOPROLOL XL 25 MG TAB PO SCH (08:32)
[2019-03-30] MEDS: FAMOTIDINE 20 MG TAB PO SCH (08:32)
[2019-03-30 08:39] VITALS: O2SAT 96
[2019-03-30] MEDS ORDERED: NICOTINE 21 MG/PAT TD SCH (09:00)
[2019-03-30] MEDS: INSULIN DEGLUDEC 20 UNIT SQ SCH (09:00)
[2019-03-30] MEDS ORDERED: VANCOMYCIN 1.75 GM in NA CHLORIDE 0.9% 500 ML IVPB SCH (09:00)
--- NOTE | 2019-03-30 14:48 | PN ---
Date of Progress Note: 03/30/2019 Subjective: Patient is awake, alert. No complaint. Vital signs are stable, afebrile. Physical Examination: No changes. Assessment: Osteo wound, right great toe. Recommendations: Six weeks of IV antibiotics, Levaquin. Wound care is ordered. Discharge planning, follow up in the wound healing center in one week. /MODL Voice ID: [id number] Report ID: [id number]
--- NOTE | 2019-03-30 15:14 | P.DS ---
Admission Date: 03/27/19 Discharge Date: 03/30/19 Primary Care Provider: Dr. Orellana; Cardiology-Dr. Brumfield; Neurology-Dr. Mckeon; Surgery-Dr. Porras Disposition: DC HOME/HOME HEALTH CARE Discharge Condition: GOOD Reason for Admission: Fever, chills, headache Consultations: General surgery Brief History of Present Illness: 63-year-old male presented to the emergency room with multiple complaints including fever, chills and headache. Patient with history of diabetes mellitus type 2 insulin dependent, hypertension , depression, dementia, history of TIA, hyperlipidemia, CAD with prior stent, and tobacco abuse. Patient has been having fever, chills and headaches over the last day. reports patient had nausea and vomiting last night. He denies any shortness of breath. Mild chest pain noted. Dry cough also noted. Patient slept the majority of the day. reported that she was sick last week likely with viral infection. He denies any photophobia, no neck pain. Patient came to the ER for further evaluation. In the ER patient evaluated. Vital signs stable. Fever noted. White count elevated at 16.4, hemoglobin 12.6, platelet count of 129. Patient had 84 neutrophils and 10 bands. Lactic acid initially elevated at 2.3. Pro calcitonin negative at 0.23. Troponin was elevated at 0.18. Urinalysis negative. CT head and negative. Chest x-ray negative. EKG shows no significant ST changes. Sodium 138, potassium 4.2, BUN of 19, creatinine 1.49 with a GFR 49. Glucose 245. In the ER patient received sepsis bolus. Patient also received vancomycin and Zosyn for suspected sepsis. Patient admitted for further evaluation and treatment. When I saw the patient ER, he appeared improved. Blood pressure stable. Patient recently seen by surgery for right diabetic great toe ulcer. MRI done about a month ago negative for osteomyelitis. No inflammatory changes noted. Patient had echocardiogram August 2017 which was unremarkable. Patient also had cardiac stress test unremarkable in August 2017. Patient appears stable this time. Hospital Course: Patient was admitted for sepsis secondary osteomyelitis of the foot and bacteremia. Blood cultures were growing out strep and wound cultures from the toe growing Klebsiella. His IV antibiotics were adjusted once cultures finalized to IV Levaquin. General surgery was consulted for the osteomyelitis of the right 1st toe. General surgery recommended conservative management at this time, no surgical amputation. His troponins were also elevated, likely secondary to sepsis. No cardiac intervention planned at this time. Patient's symptoms improved throughout the stay in a. Otherwise she was hemodynamically stable throughout the stay. Social work was consulted to set up home health for IV antibiotics at home. Patient will require IV Levaquin for 6 weeks. He will follow up with general surgery in 1 week for follow up. Wound care instructions was provided to patient as well. Prior to discharge, patient was alert oriented x3, in no acute distress and hemodynamically stable. He was ambulating with crutches, tolerating oral diet. His symptoms had improved and he had no acute complaints. His diagnoses/treatment plan was explained to him, all questions were answered he verbalized understanding. He was then cleared for discharge from general surgery. He was then discharged home in a safe and stable manner. Vital Signs/Physical Exam: Temp Pulse Resp BP Pulse Ox 97.7 F 72 20 184/79 H 98 03/30/19 12:00 03/30/19 12:00 03/30/19 12:00 03/30/19 12:00 03/30/19 12:00 General: Alert, In no apparent distress, Oriented x3 HEENT: Atraumatic, PERRLA, EOMI Neck: Supple, JVD not distended Respiratory: Clear to auscultation bilaterally, Normal air movement Cardiovascular: Regular rate/rhythm, Normal S1 S2 Gastrointestinal: Normal bowel sounds, No tenderness Musculoskeletal: No tenderness Integumentary: No rashes Neurological: Normal speech, Normal tone, Normal affect Lymphatics: No axilla or inguinal lymphadenopathy Laboratory Data at Discharge: WBC 7.4 K/uL (4.3-10.9) 03/30/19 04:00 Hgb 10.4 g/dL (13.6-17.9) L 03/30/19 04:00 Hct 31.3 % (39.6-49.0) L 03/30/19 04:00 Plt Count 112 K/uL (152-406) L 03/30/19 04:00 PT 12.6 SECONDS (9.5-12.5) H 03/26/19 18:59 INR 1.07 03/26/19 18:59 APTT 26.2 SECONDS (24.3-36.9) 03/26/19 18:59 Sodium 134 mmol/L (136-145) L 03/30/19 04:00 Potassium 3.6 mmol/L (3.5-5.1) 03/30/19 04:00 BUN 27 mg/dL (7-18) H 03/30/19 04:00 Creatinine 1.08 mg/dL (0.55-1.3) 03/30/19 04:00 Glucose 168 mg/dL (74-106) H 03/30/19 04:00 Magnesium 2.2 mg/dL (1.8-2.4) 03/30/19 04:00 Total Bilirubin 0.4 mg/dL (0.2-1.0) 03/26/19 18:50 AST 15 U/L (15-37) 03/26/19 18:50 ALT 16 U/L (12-78) 03/26/19 18:50 Alkaline Phosphatase 63 U/L (45-117) 03/26/19 18:50 Troponin I 0.14 ng/mL (0.0-0.045) H 03/27/19 13:13 Triglycerides 146 mg/dL (<150) 03/27/19 06:50 Cholesterol 98 mg/dL (<200) 03/27/19 06:50 HDL Cholesterol 26 mg/dL (40-60) L 03/27/19 06:50 Cholesterol/HDL Ratio 3.77 03/27/19 06:50 Lipase 47 U/L (73-393) L 03/26/19 18:50 Home Medications: Clopidogrel Bisulfate [Plavix*] 75 mg PO DAILY 05/16/14 Escitalopram [Lexapro] 10 mg PO DAILY 05/16/14 Divalproex Sodium [Depakote] 500 mg PO BID #60 tablet.dr 05/17/14 Insulin Degludec [Tresiba Flextouch U-200] 20 unit SQ DAILY 02/24/19 Metoprolol Succinate/Hctz [Metoprolol ER-Hctz 25-12.5 mg] 25 each PO DAILY 02/24 hydroCHLOROthiazide [Hydrodiuril*] 25 mg PO DAILY 02/24/19 Lisinopril [Prinivil*] 20 mg PO DAILY 03/27/19 Rosuvastatin [Crestor*] 20 mg PO BEDTIME #30 tab 03/30/19 traMADol HCL [Ultram*] 50 mg PO Q8H PRN #15 tab 03/30/19 New Medications: Rosuvastatin [Crestor*] 20 mg PO BEDTIME #30 tab traMADol HCL [Ultram*] 50 mg PO Q8H PRN #15 tab PRN Reason: Pain Scale 5-7 (Moderate) Patient Discharge Instructions: w to d ns daily Diet: ADA Activity: Ad annalee Followup: Kishore Porras MD [ACTIVE - CAN ADMIT] - 1-2 Weeks (f/u [facility] in my clinic) Time spent managing pt's care (in minutes): 55
[2019-03-30] MEDS: Levofloxacin 750mg IV 750 MG/150 ML BAG IV SCH (16:05)
[2019-03-30 18:20] VITALS: BP 187/79; TEMP 98.3
== END 2019-03-30 17:41 | disposition home health service (06) | DRG 872 ==
LOC: ER 18:21 → ERHOLD 03-27 00:25 → 2ND 03-27 01:26
PROVIDERS: ADMIT Family Medicine; ATTEND Family Medicine
DX: A40.1 Sepsis due to streptococcus, group B (principal); M86.8X7 Other osteomyelitis, ankle and foot; N17.9 Acute kidney failure, unspecified; E11.69 Type 2 diabetes mellitus with other specified complication; B96.1 Klebsiella pneumoniae [K. pneumoniae] as the cause of diseases classified elsewhere; I10 Essential (primary) hypertension; E78.5 Hyperlipidemia, unspecified; F32.9 Major depressive disorder, single episode, unspecified; I25.10 Atherosclerotic heart disease of native coronary artery without angina pectoris; R79.89 Other specified abnormal findings of blood chemistry; R25.1 Tremor, unspecified; R51 Headache; E11.65 Type 2 diabetes mellitus with hyperglycemia; E78.2 Mixed hyperlipidemia; F01.50 Vascular dementia, unspecified severity, without behavioral disturbance, psychotic disturbance, mood disturbance, and anxiety; E11.621 Type 2 diabetes mellitus with foot ulcer; L97.519 Non-pressure chronic ulcer of other part of right foot with unspecified severity; Z95.5 Presence of coronary angioplasty implant and graft; Z86.73 Personal history of transient ischemic attack (TIA), and cerebral infarction without residual deficits; F17.210 Nicotine dependence, cigarettes, uncomplicated
CPT/HCPCS: 36415; 70450; 71045; 80048; 80061; 80076; 80202; 81003; 81015; 82550; 82553; 82962; 83605; 83690; 83735; 84145; 84439; 84443; 84484; 85025; 85610; 85730; 87040; 87070; 87075; 87077; 87186; 87205; 87804; 93005; 93306; 93925; 96365; 96366; 96367; 96372; 96375; 99285; J0360; J0692; J1650; J2405; J7030

== ENCOUNTER 2019-05-05 00:44 | Inpatient (IN) | payer OTHER ==
[2019-05-05] MEDS ORDERED: NA CHLORIDE 0.9% 3,000 ML ONE (01:22)
[2019-05-05 01:45] LABS: Absolute Lymphocytes (CBC) 0.6 K/uL (0.7-4.9); Hematocrit 33.3 % (39.6-49.0); Lymphocytes % 5.6 % (15.3-44.8); MPV 9.9 fL (7.6-11.3); RBC Red Blood Cell Count 4.06 M/uL (4.33-5.43)
[2019-05-05] MEDS ORDERED: ACETAMINOPHEN 500 MG TAB ONE (02:01)
[2019-05-05 02:27] LABS: Protime INR 0.91
[2019-05-05 02:42] LABS: ALT/SGPT 25 U/L (12-78); AST/SGOT 17 U/L (15-37); Albumin 3.1 g/dL (3.4-5.0); Alkaline Phosphatase 59 U/L (45-117); BUN Blood Urea Nitrogen 23 mg/dL (7-18); Bicarbonate 26 mmol/L (21-32); Bilirubin Direct < 0.1 mg/dL (0-0.2); Bilirubin Total 0.3 mg/dL (0.2-1.0); C-Reactive Protein 4.95 mg/L (<3.00); CKMB Creatine Kinase MB 2.1 ng/mL (0.3-3.6); Creatine Phosphokinase 63 U/L (39-308); Glucose Level 251 mg/dL (74-106); Lipase 208 U/L (73-393); Potassium 4.1 mmol/L (3.5-5.1); Protein, Total 6.8 g/dL (6.4-8.2); Sodium Level 139 mmol/L (136-145); Troponin (Emerg Dept Use Only) 0.03 ng/mL (0.0-0.045)
[2019-05-05 03:41] LABS: Blood Morphology Comment NOT SEEN (NOT SEEN); Platelet Estimate ADEQ
--- NOTE | 2019-05-05 04:48 | ER ---
Nurse's Notes [facility] Name: Barrington Fletcher Age: 63 yrs Sex: Male : 1955 Arrival Date: 05/05/2019 Time: 00:47 Bed 7 Private MD: Diagnosis: Vomiting;Dehydration;Bandemia;Fever, unspecified Presentation: 05/05 00:45 Presenting complaint: EMS states: he woke up suddenly he vomited. got in the bathroom rr5 still puking, associated with chest discomfort. we gave phenergan 12.5mg/IV given, hooked to oxygen initial reading O2 saturation 90%. on nasal cannula. 00:45 Transition of care: patient was not received from another setting of care. Onset of rr5 symptoms was May 05, 2019. Risk Assessment: Do you want to hurt yourself or someone else? Patient reports no desire to harm self or others. Initial Sepsis Screen: Does the patient meet any 2 criteria? Temp <36.0*C (96.8*F)) or > 38.3*C (100.9*F). HR > 90 bpm. Yes Does the patient have a suspected source of infection? Yes: Skin breakdown/wound Bone or joint infection Note stated by when they woke up he started to vomit, puking and shivering. Care prior to arrival: Medication(s) given: Phenergan, 12.5 mg. 00:45 Method Of Arrival: EMS: [facility] rr5 00:45 Acuity: EVIE 3 rr5 00:45 Note he has a right big toe bone infection, for amputation seen by dr. alcaraz prescribed rr5 to have 6 weeks of antibiotic treatment and was completed the dosage via PICC line, they are planning to go tomorrow to for the removal of PICC line, verbalized by . Triage Assessment: 00:45 GI: Reports vomiting, as per EMS and hris manager. rr5 Historical: - Allergies: 00:55 No Known Allergies; rr5 - Home Meds: 00:55 divalproex 500 mg Oral Tb24 1 tab twice a day [Active]; escitalopram oxalate 10 mg Oral rr5 tab 1 tab once daily [Active]; lisinopril 20 mg Oral tab 1 tab once daily [Active]; metformin 500 mg Oral tr24 1 tab twice a day [Active]; Plavix 75 mg Oral tab 1 tab once daily [Active]; propranolol 60 mg Oral tab 1 tab daily [Active]; tramadol 50 mg Oral tab 1 tab every 4-6 hours as needed [Active]; - PMHx: 00:55 CVA; Diabetes - NIDDM; Hypertension; Myocardial infarction; x2; neuropathy; rr5 - PSHx: 00:55 right big toe surgery; rr5 - Immunization history:: Adult Immunizations up to date. - Social history:: Smoking status: Patient uses tobacco products, smokes one-half pack cigarettes per day, Patient/guardian denies using alcohol, street drugs. - Ebola Screening: : Patient negative for fever greater than or equal to 101.5 degrees Fahrenheit, and additional compatible Ebola Virus Disease symptoms Patient denies exposure to infectious person Patient denies travel to an Ebola-affected area in the 21 days before illness onset. Screenin:04 Abuse screen: Denies threats or abuse. Denies injuries from another. Nutritional rr5 screening: No deficits noted. Tuberculosis screening: No symptoms or risk factors identified. Fall Risk IV access (20 points). Total Luna Fall Scale indicates No Risk (0-24 pts). Assessment: 00:45 General: Appears in no apparent distress. comfortable, Behavior is drowsy, Reports rr5 chills for fever for as stated by and EMS. Pain: Unable to use pain scale. Patient appears confused. Neuro: Level of Consciousness is confused, Oriented to none Pupils are PERRLA. 00:45 Cardiovascular: Capillary refill < 3 seconds Patient's skin is warm and dry. rr5 Respiratory: Airway is patent Respiratory effort is even, unlabored, Respiratory pattern is regular, symmetrical. GI: Abdomen is round non-distended, Parent/caregiver reports the patient having nausea, vomiting. : No signs and/or symptoms were reported regarding the genitourinary system. EENT: No signs and/or symptoms were reported regarding the EENT system. Derm: Skin is intact, Skin temperature is warm Wound noted right first toe. Musculoskeletal: Circulation, motion, and sensation intact. Capillary refill < 3 seconds, wound at right big toe. 02:05 Reassessment: Patient appears in no apparent distress at this time. T 101.2F ED rr5 provider informed with order made and carried out. patient is drowsy respond to verbal command able to drink water and the pill without difficulty. 03:26 Reassessment: Patient appears in no apparent distress at this time. came back from CT rr5 scan. patient is drowsy able to respond to verbal stimuli. temperature rechecked T 99.9 F. 04:30 Reassessment: Patient appears in no apparent distress at this time. No changes from rr5 previously documented assessment. Patient and/or family updated on plan of care and expected duration. Pain level reassessed. Temperature rechecked T 99 F. 05:10 Reassessment: dr. groves at bedside examining the patient. rr5 05:10 Reassessment: Patient appears in no apparent distress at this time. No changes from rr5 previously documented assessment. 06:22 Reassessment: Patient appears in no apparent distress at this time. Patient and/or rr5 family updated on plan of care and expected duration. Pain level reassessed. vitally stable, came back from CT scan. breathing spontaneously with oxygen support at 2 liter via nasal cannula. Vital Signs: 00:55 BP 209 / 75; Pulse 98; Resp 21; Temp 101.1; Pulse Ox 90% on R/A; rr5 01:00 Pulse Ox 95% on 2 lpm NC; rr5 01:15 Weight 88 kg; Height 5 ft. 4 in. (162.56 cm); rr5 02:05 BP 206 / 77; Pulse 102; Resp 23; Temp 101.2; Pulse Ox 99% on 2 lpm NC; rr5 03:00 BP 183 / 71; Pulse 100; Resp 20; Temp 101.1; Pulse Ox 98% on 2 lpm NC; rr5 03:30 BP 171 / 69; Pulse 93; Resp 18; Temp 99.9; Pulse Ox 97% on 2 lpm NC; Pain 0/10; rr5 03:54 BP 150 / 61; Pulse 90; Resp 21; Temp 99.8; Pulse Ox 98% on 2 lpm NC; rr5 04:30 BP 141 / 76; Pulse 79; Resp 20; Temp 99; Pulse Ox 98% on 2 lpm NC; rr5 05:22 BP 136 / 58; Pulse 80; Resp 19; Temp 99.1; Pulse Ox 98% on 2 lpm NC; rr5 06:17 BP 137 / 60; Pulse 79; Resp 19; Temp 99; Pulse Ox 98% 2 lpm ; rr5 06:33 BP 132 / 56; Pulse 75; Resp 17; Temp 98.8; Pulse Ox 99% on 2 lpm NC; rr5 01:15 Body Mass Index 33.30 (88.00 kg, 162.56 cm) rr5 Excel Coma Score: 00:55 Eye Response: to voice(3). Verbal Response: confused(4). Motor Response: obeys rr5 commands(6). Total: 13. 03:00 Eye Response: to voice(3). Verbal Response: oriented(5). Motor Response: obeys rr5 commands(6). Total: 14. 04:00 Eye Response: to voice(3). Verbal Response: oriented(5). Motor Response: obeys rr5 commands(6). Total: 14. 05:00 Eye Response: to voice(3). Verbal Response: oriented(5). Motor Response: obeys rr5 commands(6). Total: 14. 06:00 Eye Response: to voice(3). Verbal Response: oriented(5). Motor Response: obeys rr5 commands(6). Total: 14. 06:33 Eye Response: to voice(3). Verbal Response: oriented(5). Motor Response: obeys rr5 commands(6). Total: 14. ED Course: 00:47 Patient arrived in ED. rr5 00:55 Arm band placed on. rr5 00:55 Patient has correct armband on for positive identification. Placed in gown. Bed in low rr5 position. Call light in reach. Side rails up X2. Pulse ox on. NIBP on. 00:55 Accessed PICC line. Clean \T\ dry. Dressing intact. Good blood return. Flushes easily. rr5 Maintain EMS IV. Dressing intact. Good blood return noted. Site clean \T\ dry. Gauge \T\ site: G20 right AC. 00:58 Triage completed. rr5 01:11 Jeff Pretty MD is Attending Physician. tw4 01:17 Juan Quintana RN is Primary Nurse. rr5 02:08 Chest Single View XRAY In Process Unspecified. EDMS 03:10 Patient moved back from CT. jj2 03:35 CT Abd/Pelvis - IV Contrast Only In Process Unspecified. EDMS 04:24 CT completed. Patient tolerated procedure well. Patient moved to CT via stretcher. jj2 04:47 Musa Groves DO is Hospitalizing Provider. tw4 05:17 Attending Physician role handed off by Jeff Pretty MD kdr 05:17 Micheal Hassan MD is Attending Physician. kdr 05:19 Jeff Pretty MD is Attending Physician. kdr 05:24 No provider procedures requiring assistance completed. Patient admitted, IV remains in rr5 place. intact, No redness/swelling at site. Administered Medications: 01:29 Drug: NS 0.9% (30 ml/kg) 30 ml/kg Route: IV; Rate: bolus; Site: right antecubital; rr5 03:55 Follow up: Response: No adverse reaction; IV Status: Completed infusion; IV Intake: rr5 2650ml 02:04 Drug: Tylenol 1000 mg Route: PO; rr5 03:05 Follow up: Response: Temperature is decreased rr5 Intake: 03:55 IV: 2650ml; Total: 2650ml. rr5 Outcome: 04:47 Decision to Hospitalize by Provider. tw4 05:23 Instructed on the need for admit. rr5 06:15 Admitted to Med/surg accompanied by tech, via stretcher, room 413, with oxygen, with rr5 chart, Report called to [place] 06:15 Condition: stable 06:34 Patient left the ED. rr5 Signatures: Dispatcher [employer] EDRI Micheal Hassan MD MD kdr Reji Kwon j Jeff Pretty MD MD 4 Juan Quintana, GIBRAN RN rr5 Corrections: (The following items were deleted from the chart) 03:11 02:05 BP 206 / 77; Pulse 102bpm; Resp 23bpm; Pulse Ox 99%; Temp 101.2F; rr5 rr5 05:44 00:45 Note he has a right big toe bone infection, for amputation seen by dr. alcaraz rr5 prescribed to have 6 weeks of antibiotic treatment via PICC line. verbalized by . rr5
--- NOTE | 2019-05-05 04:48 | EDPHYS ---
Physician Documentation [facility] Name: Barrington Fletcher Age: 63 yrs Sex: Male : 1955 Arrival Date: 05/05/2019 Time: 00:47 Bed 7 Private MD: ED Physician Jeff Pretty HPI: 05/05 01:59 This 63 yrs old Male presents to ER via EMS with complaints of Vomiting. tw4 01:59 The patient presents to the emergency department with nausea, vomiting. Onset: The tw4 symptoms/episode began/occurred today. Possible causes: unknown. The symptoms are aggravated by nothing. The symptoms are alleviated by nothing. Associated signs and symptoms: Pertinent positives: nausea, vomiting. Severity of symptoms: At their worst the symptoms were mild in the emergency department the symptoms are unchanged. The patient has not experienced similar symptoms in the past. The patient has been recently seen by a physician: Dr. Porras. Historical: - Allergies: 00:55 No Known Allergies; rr5 - Home Meds: 00:55 divalproex 500 mg Oral Tb24 1 tab twice a day [Active]; escitalopram oxalate 10 mg Oral rr5 tab 1 tab once daily [Active]; lisinopril 20 mg Oral tab 1 tab once daily [Active]; metformin 500 mg Oral tr24 1 tab twice a day [Active]; Plavix 75 mg Oral tab 1 tab once daily [Active]; propranolol 60 mg Oral tab 1 tab daily [Active]; tramadol 50 mg Oral tab 1 tab every 4-6 hours as needed [Active]; - PMHx: 00:55 CVA; Diabetes - NIDDM; Hypertension; Myocardial infarction; x2; neuropathy; rr5 - PSHx: 00:55 right big toe surgery; rr5 - Immunization history:: Adult Immunizations up to date. - Social history:: Smoking status: Patient uses tobacco products, smokes one-half pack cigarettes per day, Patient/guardian denies using alcohol, street drugs. - Ebola Screening: : Patient negative for fever greater than or equal to 101.5 degrees Fahrenheit, and additional compatible Ebola Virus Disease symptoms Patient denies exposure to infectious person Patient denies travel to an Ebola-affected area in the 21 days before illness onset. ROS: 01:59 Constitutional: Negative for fever, chills, and weight loss, Eyes: Negative for injury, tw4 pain, redness, and discharge, Cardiovascular: Negative for chest pain, palpitations, and edema, Respiratory: Negative for shortness of breath, cough, wheezing, and pleuritic chest pain. 01:59 Back: Negative for injury and pain, MS/Extremity: Negative for injury and deformity, Skin: Negative for injury, rash, and discoloration, Neuro: Negative for headache, weakness, numbness, tingling, and seizure. 01:59 Abdomen/GI: Positive for nausea and vomiting, nausea, vomiting, and diarrhea, nausea, vomiting, Negative for dysphagia, hematemesis, rectal pain, rectal bleeding, bowel incontinence. Exam: 01:59 Head/Face: Normocephalic, atraumatic. Chest/axilla: Normal chest wall appearance and tw4 motion. Nontender with no deformity. No lesions are appreciated. Cardiovascular: Regular rate and rhythm with a normal S1 and S2. No gallops, murmurs, or rubs. Normal PMI, no JVD. No pulse deficits. Respiratory: Lungs have equal breath sounds bilaterally, clear to auscultation and percussion. No rales, rhonchi or wheezes noted. No increased work of breathing, no retractions or nasal flaring. 01:59 Back: No spinal tenderness. No costovertebral tenderness. Full range of motion. MS/ Extremity: Pulses equal, no cyanosis. Neurovascular intact. Full, normal range of motion. Neuro: Awake and alert, GCS 15, oriented to person, place, time, and situation. Cranial nerves II-XII grossly intact. Motor strength 5/5 in all extremities. Sensory grossly intact. Cerebellar exam normal. Normal gait. Psych: Awake, alert, with orientation to person, place and time. Behavior, mood, and affect are within normal limits. 01:59 Constitutional: The patient appears somnolent Vital Signs: 00:55 BP 209 / 75; Pulse 98; Resp 21; Temp 101.1; Pulse Ox 90% on R/A; rr5 01:00 Pulse Ox 95% on 2 lpm NC; rr5 01:15 Weight 88 kg; Height 5 ft. 4 in. (162.56 cm); rr5 02:05 BP 206 / 77; Pulse 102; Resp 23; Temp 101.2; Pulse Ox 99% on 2 lpm NC; rr5 03:00 BP 183 / 71; Pulse 100; Resp 20; Temp 101.1; Pulse Ox 98% on 2 lpm NC; rr5 03:30 BP 171 / 69; Pulse 93; Resp 18; Temp 99.9; Pulse Ox 97% on 2 lpm NC; Pain 0/10; rr5 03:54 BP 150 / 61; Pulse 90; Resp 21; Temp 99.8; Pulse Ox 98% on 2 lpm NC; rr5 04:30 BP 141 / 76; Pulse 79; Resp 20; Temp 99; Pulse Ox 98% on 2 lpm NC; rr5 05:22 BP 136 / 58; Pulse 80; Resp 19; Temp 99.1; Pulse Ox 98% on 2 lpm NC; rr5 06:17 BP 137 / 60; Pulse 79; Resp 19; Temp 99; Pulse Ox 98% 2 lpm ; rr5 06:33 BP 132 / 56; Pulse 75; Resp 17; Temp 98.8; Pulse Ox 99% on 2 lpm NC; rr5 01:15 Body Mass Index 33.30 (88.00 kg, 162.56 cm) rr5 Pat Coma Score: 00:55 Eye Response: to voice(3). Verbal Response: confused(4). Motor Response: obeys rr5 commands(6). Total: 13. 03:00 Eye Response: to voice(3). Verbal Response: oriented(5). Motor Response: obeys rr5 commands(6). Total: 14. 04:00 Eye Response: to voice(3). Verbal Response: oriented(5). Motor Response: obeys rr5 commands(6). Total: 14. 05:00 Eye Response: to voice(3). Verbal Response: oriented(5). Motor Response: obeys rr5 commands(6). Total: 14. 06:00 Eye Response: to voice(3). Verbal Response: oriented(5). Motor Response: obeys rr5 commands(6). Total: 14. 06:33 Eye Response: to voice(3). Verbal Response: oriented(5). Motor Response: obeys rr5 commands(6). Total: 14. MDM: 01:11 Patient medically screened. tw4 04:47 Differential diagnosis: Nonspecific abd pain, gastritis. Data reviewed: vital signs, tw4 nurses notes. Data interpreted: Pulse oximetry: Interpretation: normal. Test interpretation: by ED physician or midlevel provider: plain radiologic studies. Counseling: I had a detailed discussion with the patient and/or guardian regarding: the historical points, exam findings, and any diagnostic results supporting the discharge/admit diagnosis, lab results, radiology results. Physician consultation: Musa Francis DO was contacted at 04:45, regarding admission, to the medical/surgical unit. and will see patient in ED. 05/05 01:15 Order name: Urine Culture 05/05 01:15 Order name: C-Reactive Protein; Complete Time: 03:47 05/05 01:15 Order name: Basic Metabolic Panel; Complete Time: 03:47 05/05 01:15 Order name: Blood Culture Adult (2) 05/05 01:15 Order name: CBC with Diff; Complete Time: 03:47 05/05 01:15 Order name: Ckmb; Complete Time: 03:47 05/05 01:15 Order name: CPK; Complete Time: 03:47 05/05 01:15 Order name: Lactate; Complete Time: 01:59 05/05 01:15 Order name: LFT's; Complete Time: 03:47 05/05 01:15 Order name: Lipase; Complete Time: 03:47 05/05 01:15 Order name: Procalcitonin; Complete Time: 03:47 05/05 01:15 Order name: Protime (+inr); Complete Time: 03:47 05/05 01:15 Order name: Ptt, Activated; Complete Time: 03:47 05/05 01:15 Order name: Troponin (emerg Dept Use Only); Complete Time: 03:47 05/05 01:15 Order name: Urine Microscopic Only 05/05 01:15 Order name: Chest Single View XRAY 05/05 01:15 Order name: Accucheck; Complete Time: 01:25 05/05 01:15 Order name: Cardiac monitoring; Complete Time: 01:25 05/05 01:15 Order name: EKG - Nurse/Tech; Complete Time: 01:41 05/05 01:15 Order name: IV Saline Lock - Large Bore; Complete Time: 01:25 tw4 05/05 01:15 Order name: Labs collected and sent; Complete Time: : tw4 05/05 01:15 Order name: O2 Per Protocol; Complete Time: 01:25 tw4 05/05 01:15 Order name: O2 Sat Monitoring; Complete Time: 01:26 tw4 05/05 01:15 Order name: CT Abd/Pelvis - IV Contrast Only tw4 05/05 01:35 Order name: Glucose, Ancillary Testing; Complete Time: 01:59 EDMS 05/05 02:08 Order name: Manual Differential; Complete Time: 03:47 EDMS 05/05 05:14 Order name: CT Head Brain wo Cont kdr EC:59 Rate is 99 beats/min. Rhythm is regular, Sinus Rhythm. NC interval is normal. QRS tw4 interval is prolonged at 130 msec. QT interval is normal. No Q waves. T waves are Normal. No ST changes noted. Clinical impression: Abnormal EKG without significant change. Interpreted by me. Reviewed by me. Administered Medications: :29 Drug: NS 0.9% (30 ml/kg) 30 ml/kg Route: IV; Rate: bolus; Site: right antecubital; rr5 03:55 Follow up: Response: No adverse reaction; IV Status: Completed infusion; IV Intake: rr5 2650ml 02:04 Drug: Tylenol 1000 mg Route: PO; rr5 03:05 Follow up: Response: Temperature is decreased rr5 Disposition: 05/05/19 04:47 Hospitalization ordered by Musa Francis for Observation. Preliminary diagnosis are Vomiting, Dehydration, Bandemia, Fever, unspecified. - Bed requested for Telemetry/MedSurg (observation). - Status is Observation. rr5 - Condition is Fair. - Problem is new. - Symptoms are unchanged. UTI on Admission? No Signatures: Dispatcher [employer] EDAK Carina Alvarez RN RN Jeff Pretty MD MD tw4 Juan Quintana RN RN rr5 Corrections: (The following items were deleted from the chart) 01:18 01:16 BILIRUBIN, DIRECT+C.LAB.BRZ ordered. EDAK EDMS 06:03 04:47 Hospitalization Ordered by Musa Francis DO for Observation. Preliminary diagnosis is Vomiting; Dehydration; Bandemia; Fever, unspecified. Bed requested for Telemetry/MedSurg (observation). Status is Observation. Condition is Fair. Problem is new. Symptoms are unchanged. UTI on Admission? No. tw4 06:34 06:03 05/05/2019 04:47 Hospitalization Ordered by Musa Francis DO for Observation. rr5 Preliminary diagnosis is Vomiting; Dehydration; Bandemia; Fever, unspecified. Bed requested for Telemetry/MedSurg (observation). Status is Observation. Condition is Fair. Problem is new. Symptoms are unchanged. UTI on Admission? No. mw
--- NOTE | 2019-05-05 06:00 | P.HP ---
Certification for Inpatient Patient admitted to: Observation With expected LOS: <2 Midnights Patient will require the following post-hospital care: None Practitioner: I am a practitioner with admitting privileges, knowledge of patient current condition, hospital course, and medical plan of care. Services: Services provided to patient in accordance with Admission requirements found in Title 42 Section 412.3 of the Code of Federal Regulations Patient History Date of Service: 05/05/19 Primary Care Provider: Dr. Orellana; Surgery-Dr. Porras Reason for admission: Nausea, vomiting History of Present Illness: 63-year-old male with history of diabetes mellitus type 2 insulin dependent, hypertension, CAD, bipolar disorder, history of TIA and CAD. Patient presented to the emergency room with increased nausea, vomiting. Information came from the ER physician and who was present. Patient had been recently hospitalized and discharged in March for right great toe osteomyelitis. PICC line in place. Patient has finished course of IV antibiotic therapy-Levaquin and was to see surgery soon to consider discontinuation of antibiotic therapy. Tonight he woke up from bed with increased nausea and vomiting. There was also mention of fever. EMS was called. Upon evaluation by EMS, he was then provided Phenergan. This appears to have caused increase sedation. reported that he had some chills earlier. The patient was brought in for further evaluation. In the ER patient was evaluated. Increase sedation noted but arousable. Patient presented with a fever 101. On lab white count 11.1, hemoglobin 11.1. Bands of 8. Sodium 139, potassium 4.1, BUN of 23, creatinine 1.3 with a GFR 52. Glucose 251. Chest x-ray unremarkable. Urinalysis pending at this time. CT head pending. CT GI shows distal esophagitis with small hiatal hernia. Mild hepatomegaly. Bilateral L5 spondylosis noted. Bilateral efraín nephric edema is also noted. Etiology of edema undetermined. Patient was admitted for further evaluation. When I saw the patient in the ER, patient appeared stable. He had increased sedation but arousable. Patient denied any abdominal pain. No significant nausea noted. No significant shortness of breath. Allergies No Known Allergies Allergy (Verified 03/27/19 01:52) Home medications list reviewed: Yes Home Medications: Clopidogrel Bisulfate [Plavix*] 75 mg PO DAILY 05/16/14 Escitalopram [Lexapro] 10 mg PO DAILY 05/16/14 Divalproex Sodium [Depakote] 500 mg PO BID #60 tablet. 05/17/14 Insulin Degludec [Tresiba Flextouch U-200] 20 unit SQ DAILY 02/24/19 Metoprolol Succinate/Hctz [Metoprolol ER-Hctz 25-12.5 mg] 25 each PO DAILY 02/24 hydroCHLOROthiazide [Hydrodiuril*] 25 mg PO DAILY 02/24/19 Lisinopril [Prinivil*] 20 mg PO DAILY 03/27/19 Rosuvastatin [Crestor*] 20 mg PO BEDTIME #30 tab 03/30/19 traMADol HCL [Ultram*] 50 mg PO Q8H PRN #15 tab 03/30/19 - Past Medical/Surgical History Diabetic: Yes -: Diabetes mellitus type 2, insulin dependent -: History of TIA -: CAD -: History of colon cancer -: HTN -: Hyperlipidemia -: Lumbar, cervical spondylosis -: Osteomyelitis right great toe -: Depression -: GERD with hiatal hernia -: Tobacco abuse -: Cardiac stents -: Scrotal surgery -: Bilateral carpal tunnel surgery Psychosocial/ Personal History: The patient is . He has several children. - Family History Father -: Cancer (Lung cancer) Notes: lung cancer. Mother -: Diabetes, Stroke (With history of brain aneurysm.) Notes: 3 aneurysisms. - Social History Smoking Status: Light Tobacco smoker (1-9 cigarettes/day) Counseled patient to stop smoking for: less than 10 minutes Smoking therapy provided: Yes Patient receptive to therapy: Yes Alcohol use: No CD- Drugs: No Caffeine use: Yes Place of Residence: Home Review of Systems General: Fever, Chills, As per HPI Eyes: Unremarkable ENT: Unremarkable Respiratory: Unremarkable Cardiovascular: Unremarkable Gastrointestinal: Nausea, Vomiting, As per HPI Genitourinary: Unremarkable Musculoskeletal: Unremarkable Integumentary: Unremarkable Neurological: As per HPI Lymphatics: Unremarkable Physical Examination - Physical Exam General: Alert, In no apparent distress, Oriented x2, Cooperative, Other ( increased sedation) HEENT: Atraumatic, Normocephalic, Mucous membr. moist/pink Neck: Supple Respiratory: Clear to auscultation bilaterally, Normal air movement Cardiovascular: Normal pulses, Regular rate/rhythm Gastrointestinal: Normal bowel sounds, Soft and benign, Non-distended, No tenderness, No masses, No rebound, No guarding Musculoskeletal: No erythema, No tenderness, No warmth Integumentary: No erythema, No warmth, No cyanosis Neurological: Normal speech, Normal affect, Other (increased sedation) - Studies Laboratory Data (last 24 hrs) 05/05/19 01:24: PT 10.8, INR 0.91, APTT 22.0 L 05/05/19 01:24: WBC 11.1 H, Hgb 11.1 L, Hct 33.3 L, Plt Count 126 L 05/05/19 01:24: Sodium 139, Potassium 4.1, BUN 23 H, Creatinine 1.38 H, Glucose 251 H, Total Bilirubin 0.3, AST 17, ALT 25, Alkaline Phosphatase 59, Lipase 208 Assessment and Plan - Plan Impression: Nausea, vomiting likely secondary hiatal hernia with GERD Fever etiology unknown possible UTI Increase sedation likely from medication-Phenergan Chronic osteomyelitis right great toe with PICC line Diabetes mellitus type 2 insulin dependent with hyperglycemia Hypertension CAD with history of TIA Bipolar disorder Hyperlipidemia Plan: Nausea, vomiting likely secondary hiatal hernia with GERD: Patient will be admitted for further evaluation and treatment. Patient given Phenergan by EMS which may have caused increased sedation. Will monitor closely. Will provide Protonix. Patient also presented with fever. Etiology unknown. Possible UTI. CT did showed some perinephric bilateral edema. This may be chronic kidney disease related versus possible infection. Will obtain blood and urine culture. Patient previously on IV Levaquin for osteomyelitis. Will continue with Levaquin and add vancomycin. Will order CT head to evaluate sedation. Will also order MRI of the right great toe as may not need further antibiotic therapy. Will consider discontinuing PICC line. Will monitor closely. Will provide IV fluids. I will turn the service over to Dr. Thompson today. I will go over the plan of care. Possible discharge within the next 24-48 hr with clinical improvement. Fever etiology unknown possible UTI: Patient had fever upon admission. Doubt related to chronic osteomyelitis. Will obtain MRI of right great toe. CT head pending. Possible UTI. Patient now on IV vancomycin. Continue IV Levaquin. Pharmacy to monitor and adjust. Await blood and urine culture. Increase sedation likely from medication-Phenergan: Discontinue Phenergan. This was given by EMS. Will provide Phenergan as needed. Will monitor sedation. Will check CT head. Chronic osteomyelitis right great toe with PICC line: Patient currently on IV Levaquin. Will check MRI of right great toe. Patient seen by surgery. Will consult surgery for recommendation. If MRI negative then may need to discontinue PICC line and IV Levaquin. Patient has finish course of IV antibiotic therapy. Diabetes mellitus type 2 insulin dependent with hyperglycemia: Will monitor Accu-Cheks and provide sliding scale. Hypertension: Continue with medication-metoprolol. CAD with history of TIA: Continue aspirin and Plavix. Bipolar disorder: Continue Depakote and Lexapro. Hyperlipidemia: Continue Crestor. Discharge Plan: Home Plan to discharge in: 48 Hours - Advance Directives Does patient have a Living Will: No Does patient have a Durable POA for Healthcare: No - Code Status/Comfort Care Code Status Assessed: Yes (Full code) Time Spent Managing Pts Care (In Minutes): 55
[2019-05-05] MEDS ORDERED: METOPROLOL TAR 25 MG TAB PO SCH (06:28)
[2019-05-05] MEDS ORDERED: ONDANSETRON 4 MG/2 ML VIAL IV PRN (06:28)
[2019-05-05] MEDS ORDERED: ACETAMINOPHEN 500 MG TAB PO PRN (06:28)
[2019-05-05] MEDS ORDERED: PANTOPRAZOLE 40MG TABLET PO SCH ×2 (06:30→15:00)
[2019-05-05] MEDS: NA CHLORIDE 0.9% 1,000 ML IV SCH ×2 (07:00→16:13)
[2019-05-05 07:10] LABS: Thyroid Stimulating Hormone 3.22 uIU/mL (0.360-3.740)
[2019-05-05] MEDS: INSULIN -REGULAR HUMAN 50 UNIT/0.5 ML ML SQ SCH ×4 (07:30→21:00)
[2019-05-05] MEDS: Levofloxacin500mg IV 500 MG/100 ML BAG IV SCH (07:30)
[2019-05-05] MEDS: DIVALPROEX DR 500MG TAB PO SCH ×2 (07:59→21:54)
[2019-05-05] MEDS: CLOPIDOGREL 75 MG TABLET PO SCH (07:59)
[2019-05-05] MEDS: THIAMINE HCL 100 MG TABLET PO SCH (07:59)
[2019-05-05] MEDS: ASPIRIN EC 81 MG TAB PO SCH (07:59)
[2019-05-05] MEDS: FOLIC ACID 1 MG TABLET PO SCH (07:59)
[2019-05-05] MEDS: ESCITALOPRAM 20 MG TAB PO SCH (08:00)
[2019-05-05] MEDS: ENOXAPARIN 40 MG/0.4 ML SQ SCH (08:00)
[2019-05-05] MEDS: VANCOMYCIN 1.5 GM in NA CHLORIDE 0.9% 500 ML IVPB SCH (08:00)
--- NOTE | 2019-05-05 08:54 | RAD REPORT ---
EXAM DESCRIPTION: [place] Single View05/05/2019 2:07 am CLINICAL HISTORY: Fever COMPARISON: March 2019 FINDINGS: The lungs appear clear of acute infiltrate. The heart is mildly enlarged. PICC line has i ts tip in the right atrium
[2019-05-05] MEDS ORDERED: VANCOMYCIN 1 GM in NA CHLORIDE 0.9% 500 ML IVPB SCH (09:00)
--- NOTE | 2019-05-05 09:57 | EKG ---
Test Date: 2019-05-05 Test Time: 01:31:39 Courtesy Clerk: VALERIA MEASUREMENT RESULTS: Intervals: Rate: 99 OR: 130 QRSD: 130 QT: 388 QTc: 497 [place]: P: 65 OR: 130 QRS: 125 T: 56 INTERPRETIVE STATEMENTS: Normal sinus rhythm Right bundle branch block Left posterior fascicular block Bifascicular block Abnormal ECG Compared to ECG 03/28/2019 10:45:44 Left posterior fascicular block now present Bifascicular block now present Electronically Signed On 05-05-19 09:57:05 CDT by Saurabh Campbell
[2019-05-05] MEDS: TRAMADOL HCL 50 MG TAB PO PRN ×2 (10:00→21:53)
[2019-05-05 10:03] LABS: Urine Appearance CLEAR; Urine Bilirubin NEGATIVE (NEG); Urine Blood NEGATIVE (NEG); Urine Color YELLOW; Urine Glucose TRACE (NEG); Urine Protein 2+ (NEG); Urine Specific Gravity >=1.030 (1.005-1.030)
--- NOTE | 2019-05-05 10:23 | RAD REPORT ---
EXAM DESCRIPTION: MRI - Foot Right Wo Cont - 05/05/2019 9:26 am CLINICAL HISTORY: Follow-up osteomyelitis right great toesoft tissue wound right first toe COMPARISON: MRI March 28 TECHNIQUE: Multiplanar imaging of the right foot performed using T1 weighted, T1 fat saturation, T2 fat saturation and T2 stir sequencing. FINDINGS: Hyperintense T2 signal is present in the distal phalanx first toe. More subtle or heteroge neous hypointense T1 signal is present in the first distal phalanx. No emerson bone destruction. Marrow signal abnormalities are only slightly improved from March 28 imaging. The remaining phalanges and the metatarsals show no new or progressive marrow signal abnormality. No abscess or drainable fluid collection in the soft tissues. IMPRESSION: Osteomyelitis pattern is still present in the first distal phalanx showing only slight i mprovement from March 28.
[2019-05-05 10:26] LABS: Urine Microscopic Reflex ORDER UMIC
--- NOTE | 2019-05-05 10:45 | RAD REPORT ---
EXAM DESCRIPTION: CT - Head Brain Wo Cont - 05/05/2019 6:52 am CLINICAL HISTORY: The patient is 63 years old and is Male; CONFUSED TECHNIQUE: Axial computed tomography images of the head/brain without intravenous contrast. Sagitt al and coronal reformatted images were created and reviewed. This CT exam was performed using one o r more of the following dose reduction techniques: automated exposure control, adjustment of the mA and/or kV according to patient size, and/or use of iterative reconstruction technique. COMPARISON: March 26, 2019 FINDINGS: Brain: Unremarkable. No hemorrhage. No significant white matter disease. No edema. Ventricles: Unremarkable. No ventriculomegaly. Bones/joints: Unremarkable. No acute fracture. Soft tissues: Unremarkable. Sinuses: Unremarkable as visualized. No acute sinusitis. Mastoid air cells: Unremarkable as visualized. No mastoid effusion. IMPRESSION: No acute intracranial findings. Electronically signed by: Ki Perez MD 05/05/2019 6:47 AM CDT Due to temporary technical issues with the PACS/Fluency reporting system, reports are being signed by the in house radiologist as a courtesy to ensure prompt reporting. The interpreting radiologist is f ully responsible for the content of the report.
[2019-05-05 10:51] LABS: Urine Bacteria <20 /HPF (NONE SEEN); Urine Culture Reflex Order NOT NEEDED; Urine RBC <5 /HPF (NONE SEEN)
--- NOTE | 2019-05-05 11:32 | RAD REPORT ---
EXAM DESCRIPTION: CT - Abdomen Pelvis W Contrast - 05/05/2019 4:16 am CLINICAL HISTORY: ABD PAIN COMPARISON: CT abdomen and pelvis with contrast 06/29/2018. TECHNIQUE: Axial CT imaging of the abdomen and pelvis performed with intravenous contrast. Reformatt ed coronal and sagittal images reviewed. A dose reduction technique was utilized with automated exposure control according to patient size. FINDINGS: Dependent bilateral lower lobe subpleural atelectasis. Heart is enlarged. No pericardial f luid. Mild hepatic enlargement 18.8 cm. Normal parenchymal attenuation. Normal gallbladder. Normal spleen, pancreas, and adrenal glands. There is moderate bilateral perinephric edema. There are a few nonobstructing right renal pelvic calc jaden up to 4 mm. No hydronephrosis. There is significant aorta atherosclerosis. No aneurysm. Normal caliber inferior vena cava. Nonenlarg ed regional lymph nodes. Mesenteric vessels are well-opacified. There is a small hiatal hernia. Distal esophageal thickening noted. The stomach is otherwise normal. Small bowel loops are unremarkable. Normal appendix in the right lower quadrant. Unremarkable colon. No mesenteric adenopathy, ascites, or free air. Normal bladder and prostate. No pelvic free fluid or adenopathy. Nonenlarged groin lymph nodes are present bilaterally. There is mild lower thoracic and lumbar degenerative endplate hypertrophic spurring. No subluxation. Bilateral L5 spondylolysis. Intact bony pelvis. Normal hips. IMPRESSION: 1. Distal esophagitis. Small hiatal hernia. 2. Bilateral perinephric edema is nonspecific but can be seen with renal insufficiency/failure, diabe keven, or pyelonephritis. Parenchyma is otherwise normal. Nonobstructing right renal calculi up to 4 mm . 3. Mild hepatomegaly. 4. Bilateral L5 spondylolysis without subluxation. Electronically signed by: Kassidy Daley DO 05/05/2019 3:53 AM CDT Due to temporary technical issues with the PACS/Fluency reporting system, reports are being signed by the in house radiologist as a courtesy to ensure prompt reporting. The interpreting radiologist is grzegorz calderón responsible for the content of the report.
[2019-05-05] MEDS: FLUCONAZOLE 200mg IVPB 200 MG/100 ML BAG IV SCH (12:00)
[2019-05-05] MEDS: GLIMEPIRIDE 2 MG TABLET PO SCH ×2 (15:56→16:32)
--- NOTE | 2019-05-05 15:56 | CON ---
Date of Consultation: 05/05/2019 Reason For Consultation: Right great toe infection. History Of Present Illness: Patient is a 63-year-old gentleman with multiple medical problems, who I saw last month with right great toe osteomyelitis and infected wound, which grew out 3 bacteria, all of which were sensitive to Levaquin. Patient was on IV Levaquin via PICC line. He was doing well. I saw him a couple of weeks ago and his wound had healed and we were just finishing the course of [facility] antibiotics for the osteomyelitis and he was supposed to see me in the clinic today. However, he w as admitted last night with increased nausea, vomiting, shakes, and fever and chills as well. The wo und is still closed. There is no purulent discharge. There is no pain associated with it. There ar e no problems with the toe at all. He had a CT of the abdomen and pelvis done, which showed esophagi tis, hiatal hernia, mild hepatomegaly. No sore throat, runny nose, cough, headaches, or dizziness. No chest pain. Review of Systems: Otherwise unremarkable. Past Medical History: Significant for type 2 diabetes, TIA, coronary artery disease, colon cancer, h ypertension, hyperlipidemia, lumbar spondylosis, cervical spondylosis, depression, dementia, tobacco use in the past. Past Surgical History: Scrotal surgery, cardiac surgery, carpal tunnel surgery. Allergies: NO ALLERGIES. Social History: He smokes. He has been counseled. He denies drinking alcohol. Family History: Significant for diabetes, stroke, brain aneurysm in the mother and lung cancer in e father. Physical Examination: Vital Signs: Currently stable. His temperature is 99.1. General: He is awake, alert, oriented x3. Head and Neck: Cranial nerves 2 through 12 are grossly within normal limits. No neck masses. No JV D. Throat clear. Neck is supple. Chest: Clear. Heart: S1 and S2. Abdomen: Soft, nondistended, nontender. Positive bowel sounds. Extremities: Diminished dorsalis pedis and posterior tibial pulses. The right great toe wound has h ealed. There is no open wound. There is no erythema, warmth, or edema. Laboratory Data: His white count was 11.1 with a left shift. INR was 0.91. Chemistry reviewed. [place] gar was 251 on admission and BUN and creatinine were slightly high. C-reactive protein was 4.95. Pr ocalcitonin was normal. Lactic acid was normal. He had a foot MRI, which was reviewed and it shows osteomyelitis pattern is still present in the first distal phalanx, showing only slight improvement f rom March 28. CT of the abdomen and pelvis as per HPI. Assessment: Right great toe osteomyelitis, slowly improving. Recommendations: Continue Levaquin at this time. Once patient's 6 weeks are up as the wound is heal ed, I will put him on oral antibiotics for another 6 weeks. No need for any surgical intervention at this time. Patient is going to follow up with me in the wound healing center upon discharge. I conchis l discuss the plan of care with Dr. Thompson. GWENDOLYN/ALEX Voice ID: [id number] Report ID: [id number]
--- NOTE | 2019-05-05 16:55 | PN ---
Date of Progress Note: 05/05/2019 Subjective: Patient seen and examined. Chart reviewed and case discussed with RN and Dr. Porras. Mo lidia still having some nausea and difficulty swallowing. Also, reports some generalized malaise. H ad some fever overnight, highest was 101.2. Medications: List reviewed. Physical Examination: Vital Signs: Temperature 98.8, T-max is 101.2, heart rate 75, blood pressure 125/61, respirations 16 , O2 97% on 2 L via nasal cannula. General: Awake, alert, oriented x3. Elderly male, obese, ill-appearing. CV: S1, S2. Regular rate and rhythm. Peripheral pulses present. Respiratory: Moving air well bilaterally. No wheezing or stridor. No use of accessory muscles. Gastrointestinal: Abdomen is soft, nontender, nondistended. Positive bowel sounds. No guarding or rigidity. Extremities: No clubbing, cyanosis, or edema. No calf tenderness. Neurologic: Cranial nerves 2 through 12 intact grossly. No focal neurological deficits. Speech is normal. Laboratory Data: Sodium 139, potassium 4.1, chloride 106, CO2 of 26, BUN 23, creatinine 1.38, glucos e 251, lactate 2, procalcitonin 0.16. TSH 3.22. WBC 11.1, H and H 11.1 and 33.3, platelets 126. Bl ood cultures pending. Urine culture is also pending. MRI of the foot shows osteomyelitis pattern is still present in the first distal phalanx showing only slight improvement from March 28. CT sca n shows distal esophagitis; small hiatal hernia; bilateral perinephric edema, nonspecific; mild hepat omegaly; bilateral L5 spondylosis without subluxation. Head CT scan; no acute intracranial findings. Assessment: 63-year-old male with; 1.Fever, unclear etiology, may be related to urinary tract infection versus ascending pyelonephritis . CT scan showed perinephric bilateral edema. We will follow up on urine culture and blood culture. We will continue with broad-spectrum IV antibiotics. May also be related to his chronic osteomyeli tis. Patient is on IV Levaquin, we will continue. MRI shows slight improvement. 2.Nausea and vomiting, non-intractable. We will continue with antiemetics. 3.Esophagitis. Patient likely has superimposed fungal infection due to long-term IV antibiotic use. We will start on Diflucan. Unfortunately, no GI is available. We will need scope down the line. 4.Gastroesophageal reflux disease with hiatal hernia. We will continue with PPI. 5.Chronic osteomyelitis, right first toe distal phalanx. Continue with IV Levaquin. Patient alread y has PICC line. Patient is on week 5 of 6 for IV antibiotic therapy. Appreciate Dr. Porras's input. No surgical intervention at this point. MRI shows slight improvement. 6.Diabetes mellitus type 2, insulin requiring, with hyperglycemia and chronic foot infection. We wi ll continue with sliding scale insulin and monitor Accu-Cheks. 7.Essential hypertension, stable. We will continue metoprolol. 8.Coronary artery disease, [place] artery and [place] heart, stable without angina. We will continue aspirin and Plavix. 9.History of transient ischemic attack, stable. 10.Bipolar disorder. We will continue Depakote and Lexapro. 11.Mixed hyperlipidemia. Continue Crestor. 12.Deep vein thrombosis prophylaxis with Lovenox. Plan: Likely discharge in the next 24 to 48 hours depending on clinical response. /MODL Voice ID: [id number] Report ID: [id number]
[2019-05-05] MEDS: ROSUVASTATIN 10 MG TAB PO SCH (21:54)
[2019-05-05] MEDS: GABAPENTIN 300 MG CAP PO SCH (21:55)
[2019-05-06 05:22] LABS: Absolute Lymphocytes (CBC) 1.8 K/uL (0.7-4.9); Basophils % 0.6 % (0-1.3); Hematocrit 30.5 % (39.6-49.0); Lymphocytes % 21.8 % (15.3-44.8); MPV 10.3 fL (7.6-11.3); RBC Red Blood Cell Count 3.66 M/uL (4.33-5.43)
[2019-05-06 05:35] LABS: Potassium 3.8 mmol/L (3.5-5.1)
[2019-05-06] MEDS ORDERED: POTASSIUM CL SA 10 MEQ TAB PO ONE (06:36)
[2019-05-06] MEDS: Levofloxacin500mg IV 500 MG/100 ML BAG IV SCH (07:30)
[2019-05-06] MEDS: INSULIN -REGULAR HUMAN 50 UNIT/0.5 ML ML SQ SCH ×4 (07:30→21:00)
[2019-05-06] MEDS: VANCOMYCIN 1.5 GM in NA CHLORIDE 0.9% 500 ML IVPB SCH (08:00)
[2019-05-06] MEDS: NA CHLORIDE 0.9% 1,000 ML IV SCH (08:11)
[2019-05-06] MEDS: hydroCHLOROthiazide 12.5 MG CAP PO SCH (08:12)
[2019-05-06] MEDS: CLOPIDOGREL 75 MG TABLET PO SCH (08:16)
[2019-05-06] MEDS: THIAMINE HCL 100 MG TABLET PO SCH (08:16)
[2019-05-06] MEDS: METOPROLOL XL 25 MG TAB PO SCH (08:16)
[2019-05-06] MEDS: GABAPENTIN 300 MG CAP PO SCH ×2 (08:16→21:12)
[2019-05-06] MEDS: ASPIRIN EC 81 MG TAB PO SCH (08:16)
[2019-05-06] MEDS: GLIMEPIRIDE 2 MG TABLET PO SCH ×2 (08:16→17:09)
[2019-05-06] MEDS: DIVALPROEX DR 500MG TAB PO SCH ×2 (08:16→21:12)
[2019-05-06] MEDS: FOLIC ACID 1 MG TABLET PO SCH (08:16)
[2019-05-06] MEDS: ESCITALOPRAM 20 MG TAB PO SCH (08:17)
[2019-05-06] MEDS: PANTOPRAZOLE 40MG TABLET PO SCH (08:17)
[2019-05-06] MEDS: INSULIN DEGLUDEC 20 UNIT SQ SCH (08:20)
[2019-05-06] MEDS: ENOXAPARIN 40 MG/0.4 ML SQ SCH (08:51)
[2019-05-06] MEDS ORDERED: ESCITALOPRAM 10 MG PO SCH (09:00)
[2019-05-06] MEDS ORDERED: HCTZ PO SCH (09:00)
[2019-05-06] MEDS ORDERED: ESCITALOPRAM 20 MG TAB PO SCH (09:00)
[2019-05-06] MEDS ORDERED: hydroCHLOROthiazide 25 MG TAB PO SCH (09:00)
[2019-05-06] MEDS ORDERED: METOPROLOL SUCCINATE PO SCH (09:00)
[2019-05-06] MEDS ORDERED: LISINOPRIL 20 MG TAB PO SCH (09:00)
[2019-05-06] MEDS ORDERED: FUROSEMIDE 40 MG/4 ML VIAL IV ONE (11:13)
[2019-05-06] MEDS ORDERED: LABETALOL 20 MG/4ML SYRINGE IV ONE ×2 (11:13)
[2019-05-06] MEDS ORDERED: FUROSEMIDE 40 MG/4 ML VIAL ONE (11:24)
[2019-05-06] MEDS ORDERED: HYDRALAZINE HCL 20 MG/ML VIAL ONE (11:29)
--- NOTE | 2019-05-06 11:34 | P.PN ---
Date of Service: 05/06/19 Code yellow called due to Patient having shortness of breath. Patient seems to have gone in to flash pulmonary edema with blood pressure elevated in the 200 's systolic. Blood pressure was as 230 over 90. Patient was started on non- rebreather mask ABG EKG troponin BMP chest x-ray ordered. Patient moved to ICU. On assessment patient seems wet w crackles heard in the lung bases. Patient given labetalol Lasix and hydralazine [place] catheter to be placed. Monitor I's and o's strictly daily weights. pulmonary consult Family updated assessment Acute respiratory failure with hypoxia Flash pulmonary edema Accelerated hypertension
[2019-05-06 11:45] LABS: Arterial Blood Carboxyhemoglob 1.3 % (0-1.5); Blood Gas Oxyhemoglobin 92.1 % (94-97); Blood O2 Saturation 94.1 % (92-98.5)
--- NOTE | 2019-05-06 11:59 | RAD REPORT ---
EXAM DESCRIPTION: RAD - Chest Single View - 05/06/2019 11:47 am CLINICAL HISTORY: SOB, CHF Chest pain. COMPARISON: Chest Single View dated 05/05/2019; Chest Single View dated 03/28/2019; Chest Single View dated 03/26/2019; Chest Pa And Lat (2 Views) dated 09/01/2017 FINDINGS: Portable technique limits examination quality. Mild interstitial pulmonary edema appears mildly progressive since the prior study. The heart is mild ly prominent. Left PICC line tip is near the atrial caval junction. IMPRESSION: Slight progression in CHF pattern.
[2019-05-06 12:49] LABS: Potassium 4.3 mmol/L (3.5-5.1); Troponin I 0.05 ng/mL (0.0-0.045)
[2019-05-06] MEDS: FLUCONAZOLE 200mg IVPB 200 MG/100 ML BAG IV SCH (13:09)
--- NOTE | 2019-05-06 13:32 | P.CNS ---
Date of Consult: 05/06/19 Primary Care Provider: Dr. Orellana; Surgery-Dr. Porras Chief Complaint: Respiratory distress History of Present Illness: Patient is 63 years of age with a history of osteomyelitis was treated with 5 weeks of IV anti biotic care repeat appears that the lesion on the right toe has healed became sick about 2 days ago started having some fever chills and uncontrolled vomiting he has stopped his antibiotics developed some respiratory distress was transferred to the ICU is doing much better patient is a heavy smoker history of coronary artery disease Allergies No Known Allergies Allergy (Verified 03/27/19 01:52) Home Medications: Clopidogrel Bisulfate [Plavix*] 75 mg PO DAILY 05/16/14 Escitalopram [Lexapro] 10 mg PO DAILY 05/16/14 Divalproex Sodium [Depakote] 500 mg PO BID #60 tablet. 05/17/14 Insulin Degludec [Tresiba Flextouch U-200] 20 unit SQ DAILY 02/24/19 Metoprolol Succinate/Hctz [Metoprolol ER-Hctz 25-12.5 mg] 25 each PO DAILY 02/24 hydroCHLOROthiazide [Hydrodiuril*] 25 mg PO DAILY 02/24/19 Lisinopril [Prinivil*] 20 mg PO DAILY 03/27/19 Rosuvastatin [Crestor*] 20 mg PO BEDTIME #30 tab 03/30/19 traMADol HCL [Ultram*] 50 mg PO Q8H PRN #15 tab 03/30/19 Gabapentin 300 mg PO BID 05/05/19 Glimepiride [Amaryl*] 1 tab PO BID 05/05/19 Metformin HCl 1 tab PO BID 05/05/19 - Past Medical/Surgical History Diabetic: Yes -: Diabetes mellitus type 2, insulin dependent -: History of TIA -: CAD -: History of colon cancer -: HTN -: Hyperlipidemia -: Lumbar, cervical spondylosis -: Osteomyelitis right great toe -: Depression -: GERD with hiatal hernia -: Tobacco abuse -: Cardiac stents -: Scrotal surgery -: Bilateral carpal tunnel surgery Psychosocial/ Personal History: The patient is . He has several children. - Family History Father Medical History: Cancer Notes: lung cancer. Mother Medical History: Diabetes, Stroke Notes: 3 aneurysisms. - Social History Smoking Status: Current every day smoker Alcohol use: No CD- Drugs: No Caffeine use: Yes Place of Residence: Home Review of Systems 10-point ROS is otherwise unremarkable Physical Examination Temp Pulse Resp BP Pulse Ox 99.4 F 89 16 248/82 H 96 05/06/19 11:19 05/06/19 13:07 05/06/19 13:00 05/06/19 13:07 05/06/19 13:00 General: Alert, In no apparent distress, Oriented x3 HEENT: Atraumatic Neck: Supple Cardiovascular: No edema, Regular rate/rhythm Gastrointestinal: Normal bowel sounds, Soft and benign Musculoskeletal: No clubbing, No swelling Integumentary: No rashes, No breakdown Laboratory Data (last 24 hrs) 05/06/19 04:22: Sodium 141, Potassium 3.8, BUN 18, Creatinine 1.01, Glucose 195 H, Magnesium 2.0 05/06/19 04:22: WBC 8.3 D, Hgb 10.2 L, Hct 30.5 L, Plt Count 119 L - Problems (1) Respiratory distress Current Visit: Yes Status: Acute Plan: Patient is 63 years of age was transferred to the ICU with respiratory distress having some fever decently treated with 5 weeks of IV antibiotic therapy for right toe osteomyelitis seems to be recovering from that patient is mildly anemic patient is mildly hypoxic chest x-rays clear normal echocardiogram so far blood cultures are negative he may have underlying COPD from heavy smoking patient was mildly hypoxic hypercapnic as blood pressure is elevated I suggest stopping Levaquin and IV Diflucan tire 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 continue with IV vancomycin pro calcitonin level is also negative
--- NOTE | 2019-05-06 15:51 | EKG ---
Test Date: 2019-05-06 Test Time: 11:06:30 Binder Cutter Hand: EDDA MEASUREMENT RESULTS: Intervals: Rate: 112 HI: 174 QRSD: 120 QT: 346 QTc: 472 [place]: P: 64 HI: 174 QRS: 114 T: 64 INTERPRETIVE STATEMENTS: Sinus tachycardia Right bundle branch block Right axis Abnormal ECG Compared to ECG 05/05/2019 01:31:39 Sinus rhythm no longer present Electronically Signed On 05-06-19 15:51:08 CDT by Andrews Brumfield
[2019-05-06] MEDS: IPRATROPIUM BROM 0.5MG/2.5ML NEB SCH ×2 (15:55→20:00)
--- NOTE | 2019-05-06 17:16 | PN ---
Date of Progress Note: 05/06/2019 Subjective: Patient is seen and examined. Chart reviewed and case discussed with RN and Dr. Porras. Patient had rapid response called this morning due to shortness of breath. Patient had accelerated hypertension with blood pressure in the 230 systolic and appeared to have gone into flash pulmonary edema. Patient was transferred to the ICU. He was started on non-rebreather and then placed on BiPAP. EKG, chest x-ray, and labs were ordered. Family was updated. Patient complained of shortness of breath, was doing well when seen earlier in the morning for rounds. Medications: List reviewed. Physical Examination: Vital signs: When seen, patient's vital signs, latest, temperature 97.9, heart rate 84, blood pressure 206/92, respirations 19, O2 98% on 2 L via nasal cannula. General: Awake, alert, oriented x3, in some acute respiratory distress, ill- appearing male. CV: S1, S2. Sinus tachycardia. Peripheral pulses present. Respiratory: Diminished breath sounds. Crackles heard throughout. No wheezing. Patient is tachypneic with use of accessory muscles. Gastrointestinal: Abdomen is soft, nontender, nondistended. Positive bowel sounds. Extremities: No clubbing or cyanosis. Trace pedal edema. Neurologic: Nonfocal. Cranial nerves 2 through 12 intact grossly. Moves all 4 extremities. Speech is normal. Laboratory Data: Sodium 141, potassium 3.8, chloride 107, CO2 of 27, BUN 18, creatinine 1.01, glucose 195, calcium 7.5, magnesium 2. WBC 8.3, H and H 10.2 and 30.5, platelets 190, neutrophils 67%. Blood cultures, no growth to date. Repeat chest x-ray shows slight progression in CHF pattern. Assessment: 63-year-old male with; 1. Acute respiratory failure with hypoxia, likely due to flash pulmonary edema secondary to accelerated hypertension. We will place on BiPAP. Obtain ABG, chest x-ray, EKG, and troponin level. We will consult Pulmonology. 2. Accelerated hypertension, systolic blood pressure as high as 260s. We will give labetalol 10 IV and followup with hydralazine 20 mg. Patient did receive his oral antihypertensives this morning. We will continue to monitor closely. 3. Flash pulmonary edema. Chest x-ray shows congestive heart failure pattern. We will continue with Lasix. Place [place] catheter for strict I's and Os. Weigh daily. Fluid restriction. 4. Fever, unclear etiology. May be related to possible catheter tip infection. No other clear source is seen. Patient had high fevers. PICC line has been placed for 5 weeks. We will discontinue PICC line and catheter tip will be cultured. Case discussed with Dr. Porras. Patient does have chronic osteomyelitis of the right foot, which is improving on MRI. Continue with IV antibiotics and follow up on cultures. No growth to date. 5. Nausea and vomiting, non-intractable, improved. We will continue antiemetics. 6. Esophagitis, possible superimposed fungal infection due to long-term IV use. We will continue Diflucan. Patient will eventually need EGD. 7. Gastroesophageal reflux disease with hiatal hernia. Continue with PPI. 8. Chronic osteomyelitis, right first toe distal phalanx. Repeat MRI shows some mild improvement. Continue with IV antibiotics. Appreciate Dr. Porras's input. 9. Diabetes mellitus type 2, insulin requiring with hyperglycemia and chronic osteomyelitis. We will continue with sliding scale insulin and monitor blood glucose levels. Stable. 10. Coronary artery disease, [place] artery and [place] heart, stable without angina. Continue aspirin and Plavix. 11. History of transient ischemic attack, stable. 12. Bipolar disorder. Continue Depakote and Lexapro. 13. Mixed hyperlipidemia. Continue Crestor. 14. Deep venous thrombosis prophylaxis with Lovenox. Plan: We will transfer patient to ICU. Obtain EKG, cardiac enzymes, ABG, place on BiPAP. We will give Lasix and monitor heart rate and blood pressure. Aim is to bring it down to at least 180s as this was an acute hypertensive episode, has been in the 150s to 130s. Initial blood pressure in the ER was 209. /ALEX Voice ID: [id number] Report ID: [id number] GENA
--- NOTE | 2019-05-06 17:16 | PN ---
Date of Progress Note: 05/06/2019 Subjective: Patient had high blood pressure on the floor, went into flash pulmonary edema, was trans ferred to the ICU. He is awake, but on BiPAP right now. Objective: Vital Signs: Reviewed. The blood pressure is slowly improving. He did have fever yeste rday of 101. His UA however is negative so far. Extremities: On physical exam, his left toe is without change. There is dry gangrene. No significa nt erythema or warmth. Assessment: Sepsis, pulmonary edema, osteomyelitis. Recommendations: Antibiotics are ordered. As far as sepsis is concerned, I think it may be the PICC line and discussed the case in detail with Dr. Cueva, the UA is negative. I do not think it is pyelo and I think we should remove the PICC line to culture the tip. Continue him on antibiotics. We conchis l follow the patient while in the hospital. /MODL Voice ID: [id number] Report ID: [id number]
[2019-05-06] MEDS: ARFORMOTEROL TARTRATE 15 MCG/2 ML VIAL.NEB NEB SCH (20:00)
[2019-05-06] MEDS: FLUCONAZOLE 100 MG TAB PO SCH (21:12)
[2019-05-06] MEDS: ROSUVASTATIN 10 MG TAB PO SCH (21:12)
[2019-05-07] MEDS: IPRATROPIUM BROM 0.5MG/2.5ML NEB SCH ×4 (02:00→20:35)
[2019-05-07 05:29] LABS: MPV 9.8 fL (7.6-11.3)
[2019-05-07 05:33] LABS: Absolute Lymphocytes (CBC) 2.3 K/uL (0.7-4.9); Basophils % 0.4 % (0-1.3); Hematocrit 28.6 % (39.6-49.0); Lymphocytes % 23.3 % (15.3-44.8); RBC Red Blood Cell Count 3.44 M/uL (4.33-5.43)
[2019-05-07 05:40] LABS: Magnesium 2.2 mg/dL (1.8-2.4); Potassium 3.8 mmol/L (3.5-5.1)
[2019-05-07] MEDS ORDERED: POTASSIUM 25 MEQ EFFERV TAB PO ONE (05:43)
[2019-05-07] MEDS: Levofloxacin500mg IV 500 MG/100 ML BAG IV SCH (06:11)
[2019-05-07] MEDS: INSULIN DEGLUDEC 20 UNIT SQ SCH (07:28)
[2019-05-07] MEDS: INSULIN -REGULAR HUMAN 50 UNIT/0.5 ML ML SQ SCH ×4 (07:30→20:23)
[2019-05-07] MEDS: GLIMEPIRIDE 2 MG TABLET PO SCH ×2 (07:30→16:30)
[2019-05-07] MEDS: ARFORMOTEROL TARTRATE 15 MCG/2 ML VIAL.NEB NEB SCH ×2 (07:35→20:35)
[2019-05-07] MEDS: VANCOMYCIN 1.5 GM in NA CHLORIDE 0.9% 500 ML IVPB SCH ×2 (08:00→10:39)
[2019-05-07] MEDS ORDERED: AMOX/K CLAV 875 MG TAB PO SCH (09:28)
[2019-05-07] MEDS: METOPROLOL XL 25 MG TAB PO SCH (09:29)
[2019-05-07] MEDS: DIVALPROEX DR 500MG TAB PO SCH ×2 (09:29→20:23)
[2019-05-07] MEDS: ESCITALOPRAM 20 MG TAB PO SCH (09:30)
[2019-05-07] MEDS: hydroCHLOROthiazide 12.5 MG CAP PO SCH (09:30)
[2019-05-07] MEDS: FOLIC ACID 1 MG TABLET PO SCH (09:30)
[2019-05-07] MEDS: PANTOPRAZOLE 40MG TABLET PO SCH ×2 (09:31→22:48)
[2019-05-07] MEDS: FLUCONAZOLE 100 MG TAB PO SCH ×2 (09:31→20:23)
[2019-05-07] MEDS: GABAPENTIN 300 MG CAP PO SCH ×2 (09:31→20:23)
[2019-05-07] MEDS: THIAMINE HCL 100 MG TABLET PO SCH (09:31)
--- NOTE | 2019-05-07 09:53 | P.PN ---
Subjective Date of Service: 05/07/19 Primary Care Provider: Dr. Orellana; Surgery-Dr. Porras Chief Complaint: Positive blood cultures Subjective: Improving (Patient is improving doing well denies any fever chills shortness of breath cultures most likely contaminant) Review of Systems Unremarkable Physical Examination - Vital Signs Temperature: 98.3 F Blood Pressure: 177/69 Pulse: 80 Respirations: 16 Pulse Ox (%): 97 - Physical Exam General: Alert, Oriented x3 Neck: Supple Respiratory: Clear to auscultation bilaterally Cardiovascular: No edema, Regular rate/rhythm - Studies Microbiology Data (last 24 hrs): 05/05/19 01:32 Blood - Blood Anaerobic Blood Culture - Final Assessment & Plan - Problems (Diagnosis) (1) Respiratory distress Current Visit: Yes Status: Acute Plan: P patient's respiratory distress has resolved (2) Osteomyelitis Current Visit: Yes Status: Acute Plan: Patient is chronic osteomyelitis blood cultures were positive for Streptococcus agalactiae s, Klebsiella and Staph aureus were isolated from the wound patient still has chronic osteomyelitis continue with levofloxacin and vancomycin can consider changing over to p.o. high dose levofloxacin 750 mg daily ovoid Diflucan patient is scheduled to have EGD today Qualifiers: Osteomyelitis type: other chronic Laterality: left
--- NOTE | 2019-05-07 09:59 | RAD REPORT ---
EXAM DESCRIPTION: Brandon Single View05/07/2019 9:25 am CLINICAL HISTORY: Shortness of breath COMPARISON: May 06, 2019 FINDINGS: Partial resolution in mild bilateral pulmonary opacities The heart is mildly enlarged IMPRESSION: Partial resolution in mild CHF
[2019-05-07] MEDS: FUROSEMIDE 20 MG TABLET PO SCH (11:54)
[2019-05-07] MEDS ORDERED: NA CHLORIDE 0.9% 1,000 ML ONE (15:58)
[2019-05-07] MEDS ORDERED: LIDOCAINE 1% MPF 5 ML VIAL ONE (16:13)
[2019-05-07] MEDS ORDERED: PROPOFOL 200 MG/20 ML VIAL IV ONE (16:13)
--- NOTE | 2019-05-07 16:47 | PN ---
Date of Progress Note: 05/07/2019 Subjective: Patient is awake, alert; today much better than yesterday. Bowels are stable. He is af ebrile. Consult by Dr. Drake reviewed. He wanted to stop the Levaquin because patient needs Difl ucan and and discussed with him the need for antibiotics for his infection for his osteo t hat was done for 5 weeks ago. He will review the sensitivities and adjust the antibiotics accordingl y. Patient's physical exam shows no changes. Assessment: Osteomyelitis left great toe and sepsis. Recommendations: Check the cultures on catheter tip and adjust the antibiotics accordingly and Dr. Rochelle coats will manage the antibiotics based on the cultures and sensitivities as well. The patient can follow up with me in the wound healing center upon discharge. GWENDOLYN/MODL Voice ID: [id number] Report ID: [id number]
--- NOTE | 2019-05-07 16:48 | PN ---
Date of Progress Note: 05/07/2019 Subjective: Patient is seen and examined. Chart reviewed and case discussed with RN and Dr. Chano rodrigez as well as Dr. Porras. Patient is doing significantly better today. Shortness of breath has improv ed. Blood pressure is more stable. Medications: List reviewed. Physical Examination: Vital Signs: Temperature 98.3, heart rate 77, blood pressure 159/54, respirations 18, O2 98% on 2 L via nasal cannula. General: Awake, alert, oriented x3, not in any acute distress, obese male, somewhat ill-appearing. CV: S1, S2. Regular rate and rhythm. Peripheral pulses present. Respiratory: Diminished breath sounds. No wheezing or stridor. No use of accessory muscles. Minim al crackles. Gastrointestinal: Abdomen is soft, nontender, nondistended. Positive bowel sounds. Extremities: No clubbing, cyanosis, or edema. Neurologic: Nonfocal. Laboratory Data: Sodium 141, potassium 3.8, chloride 107, CO2 of 28, BUN 18, creatinine 1.02, glucos e 55, calcium 7.7, magnesium 2.2. WBC 9.9, H and H 9.6 and 28.6, platelets 139, neutrophils 64%. Bl ood cultures preliminarily showing gram-positive cocci. Catheter tip shows no growth to date. Urine culture is pending. Chest x-ray shows partial resolution in mild CHF. Assessment And Plan: A 63-year-old male with. 1.Acute respiratory failure with hypoxia secondary to flash pulmonary edema, congestive heart failur e, improving. Chest x-ray shows improvement. We will continue to monitor, wean off oxygen as tolera katharine. 2.Accelerated hypertension, likely due to fluid overload. Patient is significantly better. Blood p ressure is now in the 150s. 3.Flash pulmonary edema due to accelerated hypertension. Continue with Lasix 20 IV daily. We will continue fluid restriction. Weigh daily and strict I's and O's. 4.Fever, likely due to possible catheter tip infection versus osteomyelitis, which is subacute. Has been treated for 5 weeks with IV antibiotics. We will switch to p.o. Levaquin. Case discussed with Dr. Porras's and Dr. Drake. MRI shows improvement. 5.Non-intractable nausea and vomiting. Continue antiemetics. 6.Esophagitis, possible superimposed fungal infection due to long-term IV use. EGD is planned for t noemy. We will stop Diflucan if no fungal infection. 7.Gastroesophageal reflux disease with hiatal hernia. Continue with PPI. 8.Chronic osteomyelitis, first toe, distal phalanx. MRI shows improvement. Appreciate Dr. Porras's input. 9.Diabetes mellitus type 2, insulin requiring with hyperglycemia and chronic osteomyelitis. Continu e with sliding scale insulin and monitor blood glucose levels. 10.Essential hypertension, coronary artery disease, [place] artery and [place] heart, stable without a ngina. 11.History of transient ischemic attack, stable. 12.Bipolar disorder. We will continue Depakote and Lexapro. 13.Mixed hyperlipidemia. Continue Crestor. 14.Deep venous thrombosis prophylaxis with Lovenox. Plan: Step down from ICU. Discontinue urinary catheter. Anticipate EGD. /ALEX Voice ID: [id number] Report ID: [id number]
--- NOTE | 2019-05-07 17:03 | ENDO RPT ---
[address], [address] EGD PROCEDURE REPORT EXAM DATE: 05/07/2019 PATIENT NAME: Barrington Fletcher MR#: [id number] BIRTHDATE: 1955 ATTENDING: Jose Forbes Dr STATUS: inpatient ENVIRONMENTAL SCIENCE INSTRUCTOR: Shereen Peñaloza and Deanna Gonzalez RN INDICATIONS: The patient is a 63 yr old Male here for an EGD due to nausea and vomiting and heartburn PROCEDURE PERFORMED: EGD with biopsy MEDICATIONS: Per Anesthesia. TOPICAL ANESTHETIC: none CONSENT: The patient understands the risks and benefits of the procedure and understands that these risks include, but are not limited to: sedation, allergic reaction, infection, perforation and/or bleeding. Alternative means of evaluation and treatment include, among others: physical exam, x-rays, and/or surgical intervention. The patient elects to proceed with this endoscopic procedure. DESCRIPTION OF PROCEDURE: During intra-op preparation period all mechanical medical equipment was checked for proper function. Hand hygiene and appropriate measures for infection prevention was taken. Procedure, possible complications, and alternatives including but not limited to the possibility of bleeding, perforation, tear, infection, sepsis, need for surgery, need for blood transfusion, and anesthesia related complications were explained to the patient. After the risks, benefits and alternatives of the procedure were thoroughly explained, Informed consent was verified, confirmed and timeout was successfully executed by the treatment team. The patient was placed in the left lateral position. The patient was anesthetized with topical anesthesia. Through the anesthetized oropharyngeal area, the scope was passed without any difficulty. The Pentax EG-[id number] ([id number]) endoscope was introduced through the mouth and advanced to the third portion of the duodenum. Wide cardia noted.. The gastroscope was then slowly withdrawn and removed. LA Class B esophagitis was found in the lower esophagus. Possible Higgins's esophagus was found in the lower esophagus. With jumbo forceps, a biopsy was obtained and sent to pathology. A wide cardia was found. An erosion was found in the body of the stomach. Multiple biopsies were obtained and sent to pathology. Duodenitis was found in the bulb of the duodenum. An ulcer was found in the bulb of the duodenum. ADVERSE EVENTS: There were no complications. IMPRESSIONS: 1. LA Class B esophagitis in the lower esophagus 2. Possible Higgins's esophagus in the lower esophagus 3. Wide cardia 4. 3 mm linear erosion in the body of the stomach 5. Duodenitis in the bulb of the duodenum 6. 2 mm clean-based ulcer versus pancreatic rest in the bulb of the duodenum RECOMMENDATIONS: 1. await biopsy results 2. acid suppression therapy 3. anti-reflux regimen REPEAT EXAM: Jose Forbes Dr eSigned: Jose Forbes Dr 05/07/2019 5:03 PM cc: CPT CODES: ICD9 CODES: PATIENT NAME: Barrington Fletcher MR#: [id number]
[2019-05-07] MEDS: ENOXAPARIN 40 MG/0.4 ML SQ SCH (17:58)
[2019-05-07] MEDS: ASPIRIN EC 81 MG TAB PO SCH (17:58)
[2019-05-07] MEDS: CLOPIDOGREL 75 MG TABLET PO SCH (17:58)
[2019-05-07] MEDS: ROSUVASTATIN 10 MG TAB PO SCH (20:22)
[2019-05-08] MEDS: HYDRALAZINE HCL 20 MG/ML VIAL IV PRN ×3 (01:34→12:03)
[2019-05-08] MEDS: VANCOMYCIN 1.5 GM in NA CHLORIDE 0.9% 500 ML IVPB SCH (02:07)
[2019-05-08] MEDS: IPRATROPIUM BROM 0.5MG/2.5ML NEB SCH ×2 (02:15→08:00)
[2019-05-08 05:59] LABS: Absolute Lymphocytes (CBC) 2.2 K/uL (0.7-4.9); Basophils % 0.9 % (0-1.3); Hematocrit 28.5 % (39.6-49.0); Lymphocytes % 28.4 % (15.3-44.8); MPV 10.1 fL (7.6-11.3)
[2019-05-08 06:00] LABS: Magnesium 2.6 mg/dL (1.8-2.4); Potassium 4.2 mmol/L (3.5-5.1)
[2019-05-08 06:10] VITALS: BMI 33.7
[2019-05-08] MEDS: INSULIN -REGULAR HUMAN 50 UNIT/0.5 ML ML SQ SCH ×2 (07:30→12:03)
[2019-05-08] MEDS: INSULIN DEGLUDEC 20 UNIT SQ SCH (07:41)
[2019-05-08] MEDS: ARFORMOTEROL TARTRATE 15 MCG/2 ML VIAL.NEB NEB SCH (08:00)
[2019-05-08] MEDS: METOPROLOL XL 25 MG TAB PO SCH (08:40)
[2019-05-08] MEDS: CLOPIDOGREL 75 MG TABLET PO SCH (08:41)
[2019-05-08] MEDS: hydroCHLOROthiazide 12.5 MG CAP PO SCH (08:41)
[2019-05-08] MEDS: ASPIRIN EC 81 MG TAB PO SCH (08:41)
[2019-05-08] MEDS: FUROSEMIDE 20 MG TABLET PO SCH (08:41)
[2019-05-08] MEDS: THIAMINE HCL 100 MG TABLET PO SCH (08:41)
[2019-05-08] MEDS: DIVALPROEX DR 500MG TAB PO SCH (08:41)
[2019-05-08] MEDS: FLUCONAZOLE 100 MG TAB PO SCH (08:41)
[2019-05-08] MEDS: GLIMEPIRIDE 2 MG TABLET PO SCH (08:41)
[2019-05-08] MEDS: FOLIC ACID 1 MG TABLET PO SCH (08:42)
[2019-05-08] MEDS: ESCITALOPRAM 20 MG TAB PO SCH (08:42)
[2019-05-08] MEDS: GABAPENTIN 300 MG CAP PO SCH (08:42)
[2019-05-08] MEDS: PANTOPRAZOLE 40MG TABLET PO SCH (08:42)
[2019-05-08] MEDS ORDERED: levoFLOXacin 500 MG TAB PO SCH (09:00)
[2019-05-08] MEDS ORDERED: levoFLOXacin 750 MG TAB PO SCH (09:00)
[2019-05-08 09:26] VITALS: O2SAT 95
[2019-05-08 10:22] VITALS: TEMP 98.2
[2019-05-08 13:02] VITALS: BP 185/76
--- NOTE | 2019-05-08 14:05 | PN ---
Date of Progress Note: 05/08/2019 Subjective: Patient seen and examined. Chart reviewed and case discussed with RN. Patient is doing better, now off supplemental oxygen. Had endoscopy done yesterday, tolerated procedure well. Medications: List reviewed. Physical Examination: Vital Signs: Temperature 98.7, heart rate 71, blood pressure 165/66, respirations 14, O2 96% on room air. General: Awake, alert, and oriented x3, not in any acute distress, obese male, slightly ill-appearin g. CV: S1, S2. Regular rate and rhythm. Peripheral pulses present. Respiratory: Moving air well bilaterally. Some diminished breath sounds at the bases. Minimal crac kles. Gastrointestinal: Abdomen is soft, nontender, nondistended. Positive bowel sounds. No guarding or rigidity. Extremities: No clubbing, cyanosis. Pedal edema. Neurologic: Nonfocal. Laboratory Data: Sodium 141, potassium 4.2, chloride 108, CO2 of 28, BUN 17, creatinine 0.99, glucos e 100, calcium 7.9, magnesium 2.6. WBC 7.6, H and H 9.5 and 28.5, platelets 155. Blood cultures hav e no growth to date. One bottle showing gram-positive cocci; however, it is Staph coagulase negative . Catheter tip culture showing no growth preliminarily. Assessment: A 63-year-old male with: 1.Acute respiratory failure with hypoxia secondary to flash pulmonary edema, congestive heart failur e, improving. The patient now on room air, off BiPAP. 2.Accelerated hypertension, likely due to fluid overload, improving. We will adjust medications. B lood pressure consistently in the 160s to 170s. 3.Flash pulmonary edema due to accelerated hypertension. Continue with low-dose Lasix and fluid res triction. Monitor I's and O's. Improved. 4.Fever, possibly due to catheter tip infection versus osteomyelitis, subacute. Patient's cultures show no growth to date. Has been switched over to p.o. Levaquin. Likely discharge on p.o. antibioti cs. Has received a total of 5 weeks of IV antibiotics for the osteomyelitis. 5.Esophagitis. Patient had an endoscopy yesterday, showing to have class B esophagitis in the lower esophagus, possible Higgins esophagus, wide cardia, 3 mm linear erosion in the body of the stomach, duodenitis in the bulb of the duodenum, and 2 mm clean based ulcer versus pancreatic rest in the bulb of the duodenum. Biopsies were taken. Continue with PPI. We will stop Diflucan. No superimposed fungal infection seen on endoscopy. 6.Non-intractable nausea and vomiting, resolved. 7.Gastroesophageal reflux disease with hiatal hernia. Continue PPI. 8.Chronic osteomyelitis, first toe, distal phalanx, improvement on MRI. Patient will need to follow up with Dr. Porras as outpatient. Diabetes mellitus type 2, insulin requiring with hyperglycemia and foot infection. We will continue sliding scale insulin. Monitor blood glucose levels. 1.Essential hypertension, stable. 2.Coronary artery disease, [place] artery and [place] heart, stable without angina. 3.History of transient ischemic attack, stable. 4.Bipolar disorder. Continue Depakote and Lexapro. 5.Mixed hyperlipidemia, on Crestor. 6.Deep venous thrombosis prophylaxis, SCDs. Plan: The patient was stepped down from the ICU yesterday; however, no beds were available, will be stepped down today. Likely discharge in the next 24 hours depending on clinical response on oral ant ibiotics. /MODL Voice ID: [id number] Report ID: [id number]
[2019-05-08] MEDS ORDERED: FUROSEMIDE 20 MG TABLET PO SCH (21:00)
--- NOTE | 2019-05-10 04:19 | DS ---
Date of Discharge: 05/08/2019 Consultants: 1.Jose Forbes M.D., with GI. 2.Jaydon Drake M.D., with Pulmonology. 3.Kishore Porras M.D., with General Surgery. Procedures: On 05/07/2019, endoscopy, EGD showed class B esophagitis in the lower esophagus, possibl e Higgins's esophagus in the lower esophagus, wide cardia 3 mm linear erosion in the body of the stom ach, duodenitis in the bulb of the duodenum, 2 mm clean based ulcer versus pancreatic rest in the bul b of the duodenum. Admitting Diagnoses: 1.Intractable nausea and vomiting. 2.Fever of unknown etiology. 3.Increased sedation from medication Phenergan. 4.Chronic osteomyelitis of the right great toe on IV antibiotics with PICC line in place. 5.Diabetes mellitus type 2, insulin dependent with hyperglycemia. 6.Essential hypertension. 7.Coronary artery disease with history of transient ischemic attack. 8.Bipolar disorder. 9.Mixed hyperlipidemia. Discharge Diagnoses: 1.Acute respiratory failure with hypoxia secondary to flash pulmonary edema, resolved. 2.Hypertension, resolved. 3.Flash pulmonary edema, improved. 4.Fever, likely due to catheter tip infection versus osteomyelitis, which is subacute. 5.Esophagitis. 6.Duodenal ulcer, possible Higgins's esophagus. 7.Non-intractable nausea and vomiting, resolved. 8.Gastroesophageal reflux disease with hiatal hernia on PPI. 9.Chronic osteomyelitis, first toe, distal phalanx improving shown on MRI. 10.Diabetes mellitus type 2, insulin requiring with hyperglycemia and foot infection. 11.Essential hypertension, stable. 12.Coronary artery disease, [place] artery and [place] heart stable without angina. 13.History of transient ischemic attack, stable. 14.Bipolar disorder, stable. 15.Mixed hyperlipidemia, on Crestor. Hospital Course: Patient is a 63-year-old male who was admitted to the hospital for fevers and was f ound to be sedated due to Phenergan. Patient did not have an obvious source of infection, certainly had a subacute osteomyelitis of his right first toe for which he was being treated with Levaquin for the past 5 weeks approximately, followed by Dr. Porras. MRI was repeated, which showed improvement in his osteomyelitis, but not completely resolved. Possibility of line infection was entertained due t o urine being clear. Chest x-ray, not showing any signs of infection. His white blood cell count wa s minimally elevated at 11.1, however, did have high fevers of 101.2. Patient was then started on br oad-spectrum IV antibiotics. CT scan also showed esophagitis, possibility of fungal esophagitis due to long-term IV antibiotic use. Therefore, Diflucan was started. Patient was responding well to giovanni atment. His white blood cell count improved. Fevers resolved. He did go into flash pulmonary edema due to accelerated hypertension and had respiratory distress, had to be moved to the ICU. He was pl aced on BiPAP. He was given Lasix and blood pressure medications were adjusted. He subsequently was able to be weaned off BiPAP and did well on room air. His x-ray showed resolution in mild CHF. GI was consulted due to the findings of esophagitis showed findings as above. Ulcerations, patient was continued on PPI. Patient was seen by Dr. Porras, who had been following him for his infection of the foot osteomyelitis. His repeat blood cultures did not show any growth. Catheter tip culture showed no growth. His previous cultures have grown out 3 different organisms, which had all been sensitive to Levaquin including Klebsiella, Streptococcus and Staph aureus and he had bacteremia with Streptoc occus agalactiae. Therefore, the patient was continued on oral Levaquin for another 10 days. Digna nath was then cleared for discharge and was sent home in a stable condition. Activity: As tolerated. Medications: As per medication reconciliation list. Followup: Follow up with primary care physician in 2-3 days. Follow up with GI, Dr. Forbes in 2 wee ks. Follow up with health service coordinator, Dr. Brumfield in 2 weeks. Follow up with surgeon, Dr. Porras in 1 week . Return to ER for worsening condition. Follow up with hospital secretary, Dr. Drake in 2 weeks. Wou nd healing instructions per Dr. Porras. Patient to follow up with GI for pathology reports. Diet: Diabetic 1500 mL fluid restricted diet, low-sodium diet. Activity: As tolerated. Physical Examination Findings: Please see progress note dictated on day of discharge. /ALEX Voice ID: [id number] Report ID: [id number]
== END 2019-05-08 13:42 | disposition home or self-care (01) | DRG 189 ==
LOC: ER 00:44 → 4TH 06:21 → OBSVTOIN 06:21 → INTOOBSV 06:21 → OBSVTOIN 05-06 10:39 → 3RD-ICU 05-06 11:19 → 4TH 05-08 09:15
PROVIDERS: ADMIT Family Medicine; ATTEND Family Medicine
PROC: 5A09357 Assistance with Respiratory Ventilation, Less than 24 Consecutive Hours, Continuous Positive Airway Pressure (ICD-10-PCS; 2019-05-06)
PROC: 0DB68ZX Excision of Stomach, Via Natural or Artificial Opening Endoscopic, Diagnostic (ICD-10-PCS; 2019-05-07)
PROC: 0DB58ZX Excision of Esophagus, Via Natural or Artificial Opening Endoscopic, Diagnostic (ICD-10-PCS; principal; 2019-05-07 15:30)
DX: J96.01 Acute respiratory failure with hypoxia (principal); J81.0 Acute pulmonary edema; N39.0 Urinary tract infection, site not specified; T83.518A Infection and inflammatory reaction due to other urinary catheter, initial encounter; M86.671 Other chronic osteomyelitis, right ankle and foot; I10 Essential (primary) hypertension; I25.10 Atherosclerotic heart disease of native coronary artery without angina pectoris; F31.9 Bipolar disorder, unspecified; E78.5 Hyperlipidemia, unspecified; K44.9 Diaphragmatic hernia without obstruction or gangrene; K21.9 Gastro-esophageal reflux disease without esophagitis; E11.69 Type 2 diabetes mellitus with other specified complication; E11.65 Type 2 diabetes mellitus with hyperglycemia; E78.2 Mixed hyperlipidemia; K20.8 Other esophagitis; K29.80 Duodenitis without bleeding; F17.200 Nicotine dependence, unspecified, uncomplicated; K26.9 Duodenal ulcer, unspecified as acute or chronic, without hemorrhage or perforation
CPT/HCPCS: 36415; 70450; 71045; 74177; 80048; 80076; 80202; 81003; 81015; 82550; 82553; 82805; 82947; 83605; 83690; 83735; 84145; 84439; 84443; 84484; 85025; 85610; 85730; 86140; 87040; 87070; 87205; 88305; 88312; 88313; 93005; 94640; 94660; 96360; 96361; 96365; 96366; 99285; G0378; G0379; J0360; J1450; J1650; J1940; J2405; J2704; J7030; J7040; J7605; Q9967

== ENCOUNTER 2019-08-19 03:06 | Inpatient (IN) | payer OTHER ==
[2019-08-19] MEDS ORDERED: NITROGLYCERIN/D5W 50 MG/250 ML BTL IV ONE (03:16)
[2019-08-19] MEDS ORDERED: NA CHLORIDE 0.9% 250 ML ONE (03:16)
[2019-08-19 03:24] LABS: Arterial Blood Carboxyhemoglob 2.9 % (0-1.5); Blood Gas Oxyhemoglobin 93.6 % (94-97); Blood O2 Saturation 97.6 % (92-98.5)
[2019-08-19 03:50] LABS: Protime INR 0.97
[2019-08-19 03:51] LABS: Absolute Lymphocytes (CBC) 2.7 K/uL (0.7-4.9); Basophils % 1.1 % (0-1.3); Hematocrit 35.7 % (39.6-49.0); MPV 10.9 fL (7.6-11.3); RBC Red Blood Cell Count 4.27 M/uL (4.33-5.43)
[2019-08-19 03:58] LABS: Potassium 3.7 mmol/L (3.5-5.1); Troponin (Emerg Dept Use Only) 0.02 ng/mL (0.0-0.045)
[2019-08-19] MEDS ORDERED: FUROSEMIDE 40 MG/4 ML VIAL ONE (04:02)
--- NOTE | 2019-08-19 04:12 | ER ---
Nurse's Notes [facility] Name: Barrington Fletcher Age: 63 yrs Sex: Male : 1955 Arrival Date: 08/19/2019 Time: 03:08 Bed 2 Private MD: Diagnosis: Unspecified combined systolic (congestive) and diastolic (congestive) heart failure;Acute pulmonary edema;Hypoxemia;Hypertensive emergency Presentation: 08/19 03:14 Presenting complaint: EMS states: Called for patient with sudden onset of shortness of lp1 breath 1 hour [employer]; Per EMS, O2 at 85% on RA, patient tachypneic, hypertensive; Placed on CPAP with relief; Relief of chest pain with Nitro paste to left upper chest. Transition of care: patient was not received from another setting of care. Onset of symptoms was August 19, 2019 at 02:00. Risk Assessment: Do you want to hurt yourself or someone else? Patient reports no desire to harm self or others. Initial Sepsis Screen: Does the patient meet any 2 criteria? RR > 20 per min. Does the patient have a suspected source of infection? No. Patient's initial sepsis screen is negative. Care prior to arrival: Medication(s) given: Albuterol Neb x 1, Atrovent Neb x 1, Nitro paste 1 inch to left upper chest IV initiated. 18 GA, in the left antecubital area, Glucose check: 174 Med neb given. Oxygen administered. via CPAP or BiPAP. 03:14 Method Of Arrival: EMS: [facility] lp1 03:14 Acuity: EVIE 1 lp1 Historical: - Allergies: 03:26 No Known Allergies; lp1 - Home Meds: 03:23 divalproex 500 mg Oral Tb24 1 tab twice a day [Active]; metformin 1,000 mg oral tab 2 lp1 times per day [Active]; glimepiride 2 mg Oral tab twice a day [Active]; gabapentin 300 mg oral cap twice a day [Active]; rosuvastatin 20 mg oral tab twice a day [Active]; metoprolol tartrate 25 mg Oral tab 1 tab once daily [Active]; Plavix 75 mg Oral tab 1 tab once daily [Active]; escitalopram oxalate 10 mg Oral tab 1 tab once daily [Active]; hydrochlorothiazide 25 mg Oral tab 1 tab once daily [Active]; Tresiba FlexTouch U-100 100 unit/mL (3 mL) subcutaneous inpn 20 unit daily [Active]; lisinopril 20 mg Oral tab 1 tab once daily [Active]; - PMHx: 03:23 CVA; Diabetes - NIDDM; Hypertension; Myocardial infarction; x2; neuropathy; lp1 - Immunization history:: Adult Immunizations unknown. - Coronavirus screen:: The patient has NOT traveled to [place] in the past 14 days. The patient has NOT had contact with known/suspected case of Coronavirus?. - Family history:: not pertinent. - Social history:: Smoking status: unknown. - Ebola Screening: : No symptoms or risks identified at this time. - Hospitalizations: : No recent hospitalization is reported. Screenin:24 Abuse screen: Denies threats or abuse. Denies injuries from another. Nutritional lp1 screening: No deficits noted. Tuberculosis screening: No symptoms or risk factors identified. Fall Risk Total Ulna Fall Scale indicates High Risk Score (45 or more points). Fall prevention measures have been instituted. Side Rails Up X 2 Placed Close to Nursing Station As available patient and family educated on Fall Prevention Program and Strategies. Assessment: 03:20 General: Appears uncomfortable, Behavior is calm, cooperative. Pain: Complains of pain rv in chest. Neuro: Level of Consciousness is awake, alert, obeys commands, Oriented to person, place, time, situation. Cardiovascular: Patient's skin is warm and dry. Respiratory: Airway is patent Respiratory effort is labored, shallow. Derm: Skin is intact. 04:07 Reassessment: Patient appears in no apparent distress at this time. PATIENT IS rv RESPONDING WELL WITH BIPAP. APPEARS MORE COMFORTABLE NOW AND CHEST PAIN IS IMPROVING. 05:15 Reassessment: Patient and/or family updated on plan of care and expected duration. Pain rv level reassessed. Patient is alert, oriented x 3, equal unlabored respirations, skin warm/dry/pink. NITRO DRIP INCREASED TO 7.5 MCG/MIN. PATIENT DENIES ANY CHEST PAIN. Patient denies pain at this time. Patient states feeling better. 06:20 Reassessment: Patient appears in no apparent distress at this time. Patient and/or rv family updated on plan of care and expected duration. Pain level reassessed. Patient is alert, oriented x 3, equal unlabored respirations, skin warm/dry/pink. Patient denies pain at this time. Patient states feeling better. Respiratory: Airway is patent Respiratory effort is even, unlabored. 07:10 Reassessment: Patient appears in no apparent distress at this time. Patient and/or jl7 family updated on plan of care and expected duration. Pain level reassessed. Patient is alert, oriented x 3, equal unlabored respirations, skin warm/dry/pink. Patient denies pain at this time. Patient states feeling better. Vital Signs: 03:17 BP 212 / 83; Pulse 82; Resp 28; Temp 98.2(O); Pulse Ox 97% on 40% BiPAP; Weight 81.65 lp1 kg (R); 03:30 BP 191 / 83; Pulse 65; Resp 18; Pulse Ox 100% on 40% BiPAP; rr5 03:45 BP 169 / 73; Pulse 64; Resp 14; Pulse Ox 100% on 40% BiPAP; rv 04:00 BP 163 / 79; Pulse 65; Resp 15; Pulse Ox 100% on 40% BiPAP; rv 04:30 BP 145 / 68; Pulse 59; Resp 12; Pulse Ox 99% on 40% BiPAP; rv 05:00 BP 180 / 79; Pulse 62; Resp 11; Pulse Ox 100% on 40% BiPAP; rv 05:15 BP 195 / 83; Pulse 67; Resp 15; Pulse Ox 100% on 40% BiPAP; rv 05:30 BP 204 / 90; Pulse 66; Resp 15; Pulse Ox 100% on 40% BiPAP; rv 05:45 BP 181 / 79; Pulse 60; Resp 13; Pulse Ox 100% on R/A; rv 06:00 BP 160 / 72; Pulse 61; Resp 13; Pulse Ox 100% on 40% BiPAP; rv 06:15 BP 154 / 66; Pulse 60; Resp 13; Pulse Ox 100% on 40% BiPAP; rv 06:30 BP 163 / 67; Pulse 60; Resp 11; Pulse Ox 100% on 40% BiPAP; rv 06:45 BP 130 / 55; Pulse 60; Resp 13; Pulse Ox 100% on 40% BiPAP; rv 07:00 BP 148 / 63; Pulse 58; Resp 13 A; Pulse Ox 100% on 14% BiPAP; jl7 03:17 BiPAP settings: 14/7, rate 14, 40% FiO2 lp1 ED Course: 03:08 Patient arrived in ED. bb 03:08 Dayo Leyva MD is Attending Physician. rn 03:11 Girma Whitfield RN is Primary Nurse. rv 03:17 Triage completed. lp1 03:18 Arm band placed on. lp1 03:24 Patient has correct armband on for positive identification. Placed in gown. Bed in low lp1 position. Side rails up X2. monitoring tech on. Pulse ox on. NIBP on. 03:26 Maintain EMS IV. Dressing intact. Good blood return noted. Site clean \T\ dry. Gauge \T\ lp 1 site: 18 g to L AC. 04:06 Inserted saline lock: 20 gauge in left hand, using aseptic technique. rv 04:10 Sofi Suarez MD is Hospitalizing Provider. rn 07:06 Keyon Hodgson, GIBRAN is Primary Nurse. em 07:29 No provider procedures requiring assistance completed. Patient admitted, IV remains in jl7 place. intact, No redness/swelling at site. Administered Medications: 03:20 Drug: Nitro Drip - (Nitroglycerin 50 mg, D5W 250 ml) Route: IV; Rate: 5 mcg/min; Site: rv left forearm; 05:15 Follow up: Rate change 7.5 mcg/min rv 06:54 Follow up: Rate change 5 mcg/min rv 07:29 Follow up: Response: No adverse reaction; IV Status: Infusion continued upon admission jl7 04:06 Drug: Lasix 40 mg Route: IVP; Site: left hand; rv 05:48 Follow up: Response: No adverse reaction rv Point of Care Testing: Blood Glucose: 03:20 Blood Glucose: 141 mg/dL; rv Ranges: Outcome: 04:11 Decision to Hospitalize by Provider. rn 07:29 Admitted to ICU accompanied by nurse, accompanied by tech, family with patient, via jl7 stretcher, room 7, with oxygen, on monitor, with chart, Report called to GIBRAN Minor 07:29 Condition: stable 07:29 Discharge instructions given to patient, family, Instructed on the need for admit, Demonstrated understanding of instructions. 07:30 Patient left the ED. jl7 Signatures: Keyon Hodgson, Vane Mckinney RN, RN RN bb Dayo Leyva MD MD rn Pena, Laura, RN RN 1 Pooja Cummings RN RN jl7 Girma Whitfield, GIBRAN RN rv Juan Quintana RN RN rr5 Corrections: (The following items were deleted from the chart) 03:18 03:17 BP 212 / 83; Pulse 82bpm; Resp 28bpm; Pulse Ox 97% 02 40% BiPAP; Temp 98.2F Oral; lp1 81.65 kg Reported; lp1 05:50 05:15 Reassessment: NITRO DRIP INCREASED TO 7.5 MCG/MIN. PATIENT DENIES ANY CHEST PAIN. rv rv
--- NOTE | 2019-08-19 04:13 | EDPHYS ---
Physician Documentation [facility] Name: Barrington Fletcher Age: 63 yrs Sex: Male : 1955 Arrival Date: 08/19/2019 Time: 03:08 Bed 2 Private MD: ED Physician Dayo Leyva HPI: 08/19 03:52 This 63 yrs old Male presents to ER via EMS with complaints of Respiratory rn Distress. 03:52 The patient has shortness of breath at rest. Onset: The symptoms/episode began/occurred rn just prior to arrival. Duration: The symptoms are continuous. The patient's shortness of breath is aggravated by supine position, talking, is alleviated by CPAP. Severity of symptoms: At their worst the symptoms were severe in the emergency department the symptoms have improved. The patient has experienced similar episodes in the past. Reports increased sob overnight, EMS reports BP > 250 systolic, and very sob, gave him nitro paste and CPAP with some improvement. Pt denies fever. Reports mild chest pain, but now gone. + Dry cough. No abd pain.. Historical: - Allergies: 03:26 No Known Allergies; lp1 - Home Meds: 03:23 divalproex 500 mg Oral Tb24 1 tab twice a day [Active]; metformin 1,000 mg oral tab 2 lp1 times per day [Active]; glimepiride 2 mg Oral tab twice a day [Active]; gabapentin 300 mg oral cap twice a day [Active]; rosuvastatin 20 mg oral tab twice a day [Active]; metoprolol tartrate 25 mg Oral tab 1 tab once daily [Active]; Plavix 75 mg Oral tab 1 tab once daily [Active]; escitalopram oxalate 10 mg Oral tab 1 tab once daily [Active]; hydrochlorothiazide 25 mg Oral tab 1 tab once daily [Active]; Tresiba FlexTouch U-100 100 unit/mL (3 mL) subcutaneous inpn 20 unit daily [Active]; lisinopril 20 mg Oral tab 1 tab once daily [Active]; - PMHx: 03:23 CVA; Diabetes - NIDDM; Hypertension; Myocardial infarction; x2; neuropathy; lp1 - Immunization history:: Adult Immunizations unknown. - Coronavirus screen:: The patient has NOT traveled to [place] in the past 14 days. The patient has NOT had contact with known/suspected case of Coronavirus?. - Family history:: not pertinent. - Social history:: Smoking status: unknown. - Ebola Screening: : No symptoms or risks identified at this time. - Hospitalizations: : No recent hospitalization is reported. ROS: 03:53 Constitutional: Negative for fever, chills, and weight loss, Eyes: Negative for injury, rn pain, redness, and discharge, Neck: Negative for injury, pain, and swelling, Cardiovascular: + chest pain Respiratory: + sob Abdomen/GI: Negative for abdominal pain, nausea, vomiting, diarrhea, and constipation, MS/Extremity: Negative for injury and deformity, Skin: Negative for injury, rash, and discoloration, Neuro: Negative for headache, weakness, numbness, tingling, and seizure. Exam: 03:53 Constitutional: This is a well developed, well nourished patient who is awake, alert, rn moderate respiratory distress. Vital Signs: 03:17 BP 212 / 83; Pulse 82; Resp 28; Temp 98.2(O); Pulse Ox 97% on 40% BiPAP; Weight 81.65 lp1 kg (R); 03:30 BP 191 / 83; Pulse 65; Resp 18; Pulse Ox 100% on 40% BiPAP; rr5 03:45 BP 169 / 73; Pulse 64; Resp 14; Pulse Ox 100% on 40% BiPAP; rv 04:00 BP 163 / 79; Pulse 65; Resp 15; Pulse Ox 100% on 40% BiPAP; rv 04:30 BP 145 / 68; Pulse 59; Resp 12; Pulse Ox 99% on 40% BiPAP; rv 05:00 BP 180 / 79; Pulse 62; Resp 11; Pulse Ox 100% on 40% BiPAP; rv 05:15 BP 195 / 83; Pulse 67; Resp 15; Pulse Ox 100% on 40% BiPAP; rv 05:30 BP 204 / 90; Pulse 66; Resp 15; Pulse Ox 100% on 40% BiPAP; rv 05:45 BP 181 / 79; Pulse 60; Resp 13; Pulse Ox 100% on R/A; rv 06:00 BP 160 / 72; Pulse 61; Resp 13; Pulse Ox 100% on 40% BiPAP; rv 06:15 BP 154 / 66; Pulse 60; Resp 13; Pulse Ox 100% on 40% BiPAP; rv 06:30 BP 163 / 67; Pulse 60; Resp 11; Pulse Ox 100% on 40% BiPAP; rv 06:45 BP 130 / 55; Pulse 60; Resp 13; Pulse Ox 100% on 40% BiPAP; rv 07:00 BP 148 / 63; Pulse 58; Resp 13 A; Pulse Ox 100% on 14% BiPAP; jl7 03:17 BiPAP settings: 14/7, rate 14, 40% FiO2 lp1 MDM: 03:08 Patient medically screened. rn 04:08 Differential diagnosis: CHF exacerbation, Myocardial Infarction Pneumothorax pulmonary rn edema, flash pulmonary edema. Data reviewed: vital signs, nurses notes, lab test result(s), EKG, radiologic studies, plain films, and as a result, I will admit patient. Counseling: I had a detailed discussion with the patient and/or guardian regarding: the historical points, exam findings, and any diagnostic results supporting the discharge/admit diagnosis, lab results, radiology results, the need for further work-up and treatment in the hospital. Response to treatment: the patient's symptoms have markedly improved after treatment, and as a result, I will admit patient. Admission orders: after a detailed discussion of the patient's condition and case, the admit orders are written by me. ED course: CXR with pulmonary edema, BP markedly improved on nitro drip, marked improvement clinically, likely flash pulmonary edema from extreme BP. Admitted to ICU under Dr. Suarez.. 06:20 ED course: Pt with marked improvement.. rn 08/19 03:09 Order name: Basic Metabolic Panel rn 08/19 03:09 Order name: CBC with Diff rn 08/19 03:09 Order name: NT PRO-BNP rn 08/19 03:09 Order name: PT-INR rn 08/19 03:09 Order name: Troponin (emerg Dept Use Only) rn 08/19 03:09 Order name: ABG rn 08/19 03:09 Order name: XRAY Chest (1 view) rn 08/19 03:37 Order name: ABG Arterial Blood Gas; Complete Time: 03:42 EDMS 08/19 03:51 Order name: Protime (+INR); Complete Time: 05:46 EDMS 08/19 03:59 Order name: Basic Metabolic Panel; Complete Time: 05:46 EDMS 08/19 03:59 Order name: Troponin (Emerg Dept Use Only); Complete Time: 05:46 EDMS 08/19 03:59 Order name: NT PRO-BNP; Complete Time: 05:46 EDMS 08/19 04:15 Order name: CBC with Automated Diff; Complete Time: 05:46 EDMS 08/19 06:06 Order name: Lipid Profile EDMS 08/19 03:09 Order name: EKG; Complete Time: 03:10 rn 08/19 03:09 Order name: Cardiac monitoring; Complete Time: 03:11 rn 08/19 03:09 Order name: EKG - Nurse/Tech; Complete Time: 03:11 rn 08/19 03:09 Order name: IV Saline Lock; Complete Time: 03:11 rn 08/19 03:09 Order name: Labs collected and sent; Complete Time: 03:20 rn 08/19 03:09 Order name: O2 Per Protocol; Complete Time: 03:20 rn 08/19 03:09 Order name: O2 Sat Monitoring; Complete Time: 03:20 rn 08/19 03:09 Order name: BIPAP rn 08/19 03:46 Order name: EKG; Complete Time: 03:46 rn 08/19 03:46 Order name: EKG - Nurse/Tech; Complete Time: 04:26 rn Administered Medications: 03:20 Drug: Nitro Drip - (Nitroglycerin 50 mg, D5W 250 ml) Route: IV; Rate: 5 mcg/min; Site: rv left forearm; 05:15 Follow up: Rate change 7.5 mcg/min rv 06:54 Follow up: Rate change 5 mcg/min rv 07:29 Follow up: Response: No adverse reaction; IV Status: Infusion continued upon admission jl7 04:06 Drug: Lasix 40 mg Route: IVP; Site: left hand; rv 05:48 Follow up: Response: No adverse reaction rv Point of Care Testing: Blood Glucose: 03:20 Blood Glucose: 141 mg/dL; rv Ranges: Critical Glucose Levels:Adult <50 mg/dl or >400 mg/dl <40 mg/dl or >180 mg/dl Disposition: 04:08 Critical Care:. rn Disposition: 08/19/19 04:11 Hospitalization ordered by Sofi Suarez for Inpatient Admission. Preliminary diagnosis are Unspecified combined systolic (congestive) and diastolic (congestive) heart failure, Acute pulmonary edema, Hypoxemia, Hypertensive emergency. - Bed requested for Intensive Care Unit. - Status is Inpatient Admission. jl7 - Condition is Fair. - Problem is new. - Symptoms have improved. Critical care time excluding procedures: 04:08 Critical care time: Bedside Care: 25 minutes, Consultation: 5 minutes, Family rn Intervention: 2 minutes. Total time: 32 minutes Signatures: Dispatcher [employer] EDMS Carina Alvarez RN RN mw Dayo Leyva MD MD rn Pena, Laura RN RN lp1 Pooja Cummings RN RN jl7 Girma Whitfield RN RN rv Corrections: (The following items were deleted from the chart) 04:47 04:11 Hospitalization Ordered by Sofi Suarez MD for Inpatient Admission. Preliminary mw diagnosis is Unspecified combined systolic (congestive) and diastolic (congestive) heart failure; Acute pulmonary edema; Hypoxemia; Hypertensive emergency. Bed requested for Intensive Care Unit. Status is Inpatient Admission. Condition is Fair. Problem is new. Symptoms have improved. rn 07:30 04:47 08/19/2019 04:11 Hospitalization Ordered by Sofi Suarez MD for Inpatient jl7 Admission. Preliminary diagnosis is Unspecified combined systolic (congestive) and diastolic (congestive) heart failure; Acute pulmonary edema; Hypoxemia; Hypertensive emergency. Bed requested for Intensive Care Unit. Status is Inpatient Admission. Condition is Fair. Problem is new. Symptoms have improved. mw
[2019-08-19] MEDS ORDERED: ONDANSETRON 4 MG/2 ML VIAL IV PRN (04:19)
[2019-08-19] MEDS ORDERED: MAGNESIUM HYDROXIDE 8% 30 ML PO PRN (04:19)
[2019-08-19] MEDS ORDERED: ACETAMINOPHEN 500 MG TAB PO PRN (04:19)
[2019-08-19] MEDS ORDERED: NITROGLYCERIN/D5W 50 MG/250 ML BTL IV PRN (04:34)
[2019-08-19] MEDS ORDERED: NA CHLORIDE 0.9% 1,000 ML IV SCH (05:00)
[2019-08-19] MEDS: ALBUTEROL 2.5 MG/3 ML NEB SOL NEB SCH ×3 (07:45→20:00)
[2019-08-19] MEDS: IPRATROPIUM BROM 0.5MG/2.5ML NEB SCH ×3 (07:45→20:00)
--- NOTE | 2019-08-19 08:07 | P.HP ---
Certification for Inpatient Patient admitted to: Inpatient With expected LOS: >2 Midnights Patient will require the following post-hospital care: None Practitioner: I am a practitioner with admitting privileges, knowledge of patient current condition, hospital course, and medical plan of care. Services: Services provided to patient in accordance with Admission requirements found in Title 42 Section 412.3 of the Code of Federal Regulations Patient History Date of Service: 08/19/19 Reason for admission: shortness of breath / flash pulmonary edema/ hypertensive emergency History of Present Illness: Patient is a 63-year-old gentleman who came into the hospital with difficulty breathing. I got most of the history from his as patient was resting on a BiPAP. She states he got suddenly short of breath while he was at home. When EMS arrived his blood pressure was approximately 260/160. he was brought into the emergency room where he was started on a nitro drip and given IV diuretics. As his blood pressure came down his symptoms have improved. It appears he has hypertensive emergency with flash pulmonary edema. He had an echocardiogram about 6 months ago which did not reveal any abnormal findings. Will probably check a urine drug screen as well as we evaluate cardiac status with another echocardiogram and cardiology consultation. Strict blood pressure control. Currently on a nitro drip and we should be able to wean this off over the next few hours. Resume oral antihypertensives. Will also need to make sure the patient does not have any secondary end organ damage from the uncontrolled blood pressure. At this time as he is on a nitro drip will admit him to the ICU. Hopefully will be able to transfer him to the floor over the next 24 hours. Allergies No Known Allergies Allergy (Verified 03/27/19 01:52) Home Medications: Clopidogrel Bisulfate [Plavix*] 75 mg PO DAILY 05/16/14 Escitalopram [Lexapro] 10 mg PO DAILY 05/16/14 Divalproex Sodium [Depakote] 500 mg PO BID #60 tablet. 05/17/14 Insulin Degludec [Tresiba Flextouch U-200] 20 unit SQ DAILY 02/24/19 Metoprolol Mayberry/Hydrochlorothiaz [Metoprolol ER-Hctz 25-12.5 mg] 25 each PO DAILY 02/24/19 lisinopriL [Prinivil*] 20 mg PO DAILY 03/27/19 Rosuvastatin [Crestor*] 20 mg PO BEDTIME #30 tab 03/30/19 Gabapentin 300 mg PO BID 05/05/19 Glimepiride [Amaryl*] 1 tab PO BID 05/05/19 Metformin HCl 1 tab PO BID 05/05/19 Furosemide [Lasix*] 20 mg PO BID #60 tab 05/08/19 Pantoprazole [Protonix Tab*] 40 mg PO BID #60 tab 05/08/19 Potassium Chloride 20 meq PO DAILY #30 tablet.er 05/08/19 - Past Medical/Surgical History Diabetic: Yes -: Diabetes mellitus type 2, insulin dependent -: History of TIA -: CAD -: History of colon cancer -: HTN -: Hyperlipidemia -: Lumbar, cervical spondylosis -: Osteomyelitis right great toe -: Depression -: GERD with hiatal hernia -: Tobacco abuse -: Cardiac stents -: Scrotal surgery -: Bilateral carpal tunnel surgery Psychosocial/ Personal History: The patient is . He has several children. - Family History Father Medical History: Cancer Notes: lung cancer. Mother Medical History: Diabetes, Stroke Notes: 3 aneurysisms. - Social History Alcohol use: No CD- Drugs: No Caffeine use: Yes Review of Systems 10-point ROS is otherwise unremarkable Physical Examination - Vital Signs Temperature: 98 F Blood Pressure: 180/100 ( patient's blood pressure was 240/180s in the ER) Pulse: 80 Respirations: 18 Pulse Ox (%): 94 ( On BiPAP support) - Physical Exam General: Alert, In no apparent distress, Oriented x3 HEENT: Atraumatic, Normocephalic Neck: Supple, 2+ carotid pulse no bruit, JVD not distended, No Thyromegaly Respiratory: Crackles/rales Cardiovascular: Regular rate/rhythm, Normal S1 S2, Systolic murmur Gastrointestinal: Normal bowel sounds, Soft and benign, Non-distended, No rebound, No guarding Musculoskeletal: No clubbing, Swelling Integumentary: No rashes Neurological: Normal gait, Normal speech, Normal strength at 5/5 x4 extr, Normal tone, Sensation intact, Cranial nerves 3-12 intact - Studies Laboratory Data (last 24 hrs) 08/19/19 03:19: Triglycerides 77, Cholesterol 200, HDL Cholesterol 41, Cholesterol/HDL Ratio 4.88 08/19/19 03:19: PT 11.5, INR 0.97 08/19/19 03:19: WBC 8.0, Hgb 11.5 L, Hct 35.7 L, Plt Count 164 08/19/19 03:19: Sodium 145, Potassium 3.7, BUN 18, Creatinine 0.96, Glucose 177 H Assessment & Plan - Problems (Diagnosis) (1) Hypertensive emergency Current Visit: Yes Status: Acute (2) Respiratory distress Current Visit: No Status: Acute (3) Coronary artery disease Onset Date: 05/17/14 Current Visit: No Status: Chronic Qualifiers: Coronary Disease-Associated Artery/Lesion type: unspecified vessel or lesion type Hoh vs. 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 Nitro drip 2. IV diuresis 3. Echocardiogram 4. Cardiology consultation 5. oral antihypertensives 6. physical therapy evaluation 7. monitor labs closely 8. GI and DVT prophylaxis Discharge Plan: Home Plan to discharge in: Greater than 2 days - Advance Directives Does patient have a Living Will: Yes Does patient have a Durable POA for Healthcare: Yes - Code Status/Comfort Care Code Status Assessed: Yes Code Status: Full Code Critical Care: No Time Spent Managing PTS Care (In Minutes): 45
--- NOTE | 2019-08-19 08:26 | RAD REPORT ---
EXAM DESCRIPTION: RAD - Chest Single View - 08/19/2019 3:40 am CLINICAL HISTORY: Chest pain;Dyspnea COMPARISON: Chest Single View dated 05/07/2019; Chest Single View dated 05/06/2019 TECHNIQUE: AP portable chest image was obtained 08/19/2019 3:40 am . FINDINGS: Slightly underinflated but similar to comparison imaging. Heart size is similar to slightl y smaller than prior imaging. There is vascular engorgement and prominent interstitial opacification. Patchy alveolar opacities are also present in the right base. No measurable pleural effusion and no pneumothorax. No acute bony abnormality seen. No acute aortic findings suspected. IMPRESSION: Mild CHF/volume overload pattern. Findings similar to May 06, 2019 imaging.
[2019-08-19] MEDS: CLOPIDOGREL 75 MG TABLET PO SCH (08:34)
[2019-08-19] MEDS: PANTOPRAZOLE 40MG TABLET PO SCH ×2 (08:34→16:21)
[2019-08-19] MEDS: ASPIRIN EC 81 MG TAB PO SCH (08:35)
[2019-08-19] MEDS: ESCITALOPRAM 20 MG TAB PO SCH (08:35)
[2019-08-19] MEDS: ENOXAPARIN 40 MG/0.4 ML SQ SCH (08:35)
[2019-08-19] MEDS: FUROSEMIDE 40 MG/4 ML VIAL IV SCH ×2 (08:35→16:21)
[2019-08-19] MEDS: GABAPENTIN 300 MG CAP PO SCH ×2 (08:35→21:13)
[2019-08-19] MEDS ORDERED: METOPROLOL TAR 25 MG TAB PO ONE (08:55)
[2019-08-19] MEDS ORDERED: INSULIN DEGLUDEC 20 UNIT SQ SCH (09:00)
[2019-08-19] MEDS: DIVALPROEX DR 500MG TAB PO SCH ×2 (09:17→21:13)
[2019-08-19] MEDS: lisinopriL 20 MG TAB PO SCH (09:17)
--- NOTE | 2019-08-19 10:03 | ECHO ---
HEIGHT: 5 ft 5 in WEIGHT: 194 lb 0 oz DATE OF STUDY: 08/19/[address]: Sofi Suarez MD 2-DIMENSIONAL: YES M.MODE: YES DOPPLER: YES COLOR FLOW: YES TDS: NO PORTABLE: NO DEFINITY: NO BUBBLE STUDY: NO DIAGNOSIS: CONGESTIVE HEART FAILURE CARDIAC HISTORY: CATHERIZATION: YES SURGERY: NO PROSTHETIC VALVE: NO PACEMAKER: NO MEASUREMENTS (cm) DIASTOLIC (NORMALS) SYSTOLIC (NORMALS) IVSd 1.2 (0.6-1.2) LA Diam 3.4 (1.9-4.0) LVEF 76% LVIDd 4.5 (3.5-5.7) LVIDs 2.5 (2.0-3.5) %FS 44% LVPWd 1.3 (0.6-1.2) Ao Diam 3.0 (2.0-3.7) 2 DIMENSIONAL ASSESSMENT: RIGHT ATRIUM: NORMAL LEFT ATRIUM: NORMAL RIGHT VENTRICLE: NORMAL LEFT VENTRICLE: LEFT VENTRICULAR HYPERTROPHY TRICUSPID VALVE: NORMAL MITRAL VALVE: NORMAL PULMONIC VALVE: NORMAL AORTIC VALVE: NORMAL PERICARDIAL EFFUSION: NONE AORTIC ROOT: NORMAL LEFT VENTRICULAR WALL MOTION: NORMAL. DOPPLER/COLOR FLOW: MILD MITRAL AND TRICUSPID REGURGITATION. NORMAL RIGHT VENTRICULAR SYSTOLIC PRESSURE. COMMENTS: NORMAL LEFT VENTRICULAR EJECTION FRACTION. LEFT VENTRICULAR HYPERTROPHY. MILD MITRAL AND TRICUSPID REGURGITATION. TECHNOLOGIST: ANNIE NICHOLSON
--- NOTE | 2019-08-19 11:56 | CON ---
History Of Present Illness: Mr. Fletcher is 63, came to the hospital with progressive shortness of lina ath, progressive swelling of his legs, orthopnea, and was found to be in pulmonary edema. Since bein g here, he has received Lasix, oxygen via BiPAP, and seems to be doing better. The patient has a his tory of coronary heart disease with a stent and a history of diastolic congestive heart failure. He also has underlying seizure disorder and dementia, diabetes, hypertension, dyslipidemia. He continue s to smoke and has obstructive lung disease. Outpatient Medications: Have been divalproex, metformin, glimepiride, gabapentin, Crestor, metoprolo l, Plavix, escitalopram, hydrochlorothiazide, Tresiba, and lisinopril. He had normal ejection fraction in last March. Allergies: NO KNOWN ALLERGIES. Physical Examination: Vital Signs: 5 feet 5 inches, 194 pounds, obese. He is alert, oriented, not in distress. Lungs: Reveal mild crackles bilaterally. Heart: Regular rate and rhythm. No significant murmur. Abdomen: Soft. Extremities: 2 to 3+ pitting edema. Assessment And Plan: I think, the patient should probably get weaned off the nitroglycerin drip, sta rt IV fluids, and we will treat his blood pressure with lisinopril and Lasix and a beta praveen. Thank you very much for your kind referral of Mr. Fletcher. I will follow him with you. DYLON/ALEX Voice ID: [id number] Report ID: [id number]
--- NOTE | 2019-08-19 13:34 | EKG ---
Test Date: 2019-08-19 Test Time: 03:10:59 Splicer Operator: MEASUREMENT RESULTS: Intervals: Rate: 67 AR: 142 QRSD: 134 QT: 494 QTc: 521 [place]: P: 16 AR: 142 QRS: 106 T: 81 INTERPRETIVE STATEMENTS: Normal sinus rhythm Right bundle branch block Abnormal ECG Compared to ECG 05/06/2019 11:06:30 Sinus tachycardia no longer present Electronically Signed On 08-19-19 13:33:48 WASTE HAND by Andrews Brumfield
--- NOTE | 2019-08-19 13:34 | EKG ---
Test Date: 2019-08-19 Test Time: 03:54:22 Neck Fitter: MARIO MEASUREMENT RESULTS: Intervals: Rate: 62 [place]: 146 QRSD: 132 QT: 496 QTc: 503 [place]: P: 10 [place]: 146 QRS: 106 T: 114 INTERPRETIVE STATEMENTS: Normal sinus rhythm Right bundle branch block Abnormal ECG Compared to ECG 05/06/2019 11:06:30 Sinus tachycardia no longer present Electronically Signed On 08-19-19 13:32:59 ARMORED SERVICE TECHNICIAN by Andrews Brumfield
[2019-08-19 14:17] LABS: Absolute Lymphocytes (CBC) 2.5 K/uL (0.7-4.9); Basophils % 0.9 % (0-1.3); Hematocrit 33.1 % (39.6-49.0); Lymphocytes % 26.9 % (15.3-44.8); MPV 11.3 fL (7.6-11.3); RBC Red Blood Cell Count 4.04 M/uL (4.33-5.43)
--- NOTE | 2019-08-19 15:10 | P.PN ---
Date of Service: 08/19/19 Patient was seen at ICU. He is doing very well. No dizziness or headache. His BP is under control with nitro drp. Would try to wean off nitro drip. Will closely follow up
[2019-08-19] MEDS ORDERED: GLUCAGON 1 MG/VIAL IM PRN (17:12)
[2019-08-19] MEDS ORDERED: D50W 25 GM/50 ML SYRINGE/VIAL IV PRN (17:12)
[2019-08-19] MEDS: METOPROLOL TAR 25 MG TAB PO SCH (17:23)
[2019-08-19] MEDS: INSULIN -REGULAR HUMAN 50 UNIT/0.5 ML ML SQ SCH (21:00)
[2019-08-20] MEDS: IPRATROPIUM BROM 0.5MG/2.5ML NEB SCH ×2 (01:50→07:45)
[2019-08-20] MEDS: ALBUTEROL 2.5 MG/3 ML NEB SOL NEB SCH ×2 (01:50→07:45)
[2019-08-20 04:55] LABS: Absolute Lymphocytes (CBC) 2.8 K/uL (0.7-4.9); Basophils % 0.9 % (0-1.3); Hematocrit 33.4 % (39.6-49.0); Lymphocytes % 30.4 % (15.3-44.8); MPV 10.6 fL (7.6-11.3); RBC Red Blood Cell Count 4.07 M/uL (4.33-5.43)
[2019-08-20] MEDS: METOPROLOL TAR 25 MG TAB PO SCH (05:44)
[2019-08-20 05:47] LABS: Magnesium 2.3 mg/dL (1.8-2.4); Phosphorus 5.4 mg/dL (2.5-4.9); Potassium 4.4 mmol/L (3.5-5.1)
[2019-08-20 06:08] VITALS: BMI 30.9
[2019-08-20] MEDS: INSULIN -REGULAR HUMAN 50 UNIT/0.5 ML ML SQ SCH ×2 (07:30→11:30)
[2019-08-20 07:51] VITALS: O2SAT 100
[2019-08-20] MEDS: PANTOPRAZOLE 40MG TABLET PO SCH (08:09)
[2019-08-20] MEDS: lisinopriL 20 MG TAB PO SCH (08:09)
[2019-08-20] MEDS: GABAPENTIN 300 MG CAP PO SCH (08:09)
[2019-08-20] MEDS: DIVALPROEX DR 500MG TAB PO SCH (08:11)
[2019-08-20] MEDS: ENOXAPARIN 40 MG/0.4 ML SQ SCH (08:11)
[2019-08-20] MEDS: ASPIRIN EC 81 MG TAB PO SCH (08:11)
[2019-08-20] MEDS: FUROSEMIDE 40 MG/4 ML VIAL IV SCH (08:11)
[2019-08-20] MEDS: CLOPIDOGREL 75 MG TABLET PO SCH (08:11)
[2019-08-20] MEDS: ESCITALOPRAM 20 MG TAB PO SCH (08:11)
[2019-08-20 08:31] VITALS: TEMP 97.1
[2019-08-20] MEDS ORDERED: INSULIN DEGLUDEC U SQ SCH (09:00)
[2019-08-20] MEDS ORDERED: HYDRALAZINE HCL 20 MG/ML VIAL IV ONE (12:20)
[2019-08-20 13:29] VITALS: BP 143/60
--- NOTE | 2019-08-20 15:23 | PN ---
Mr. Fletcher has had diuresis. Lungs are clear. He feels back to normal. I believe Mr. Fletcher is sta ble enough to be discharged home today. His dose of diuretic was 40 mg of Lasix b.i.d. His diuretic dose before he came to the hospital was furosemide 20 b.i.d., so I think we should have Mr. Fletcher t laney 40 mg b.i.d. orally at home. He should continue his other medications and he can have followup i n a few weeks. He has been instructed on sodium restriction. He was eating crackers and other foods that he does not realize were salty. So if he follows low-sodium, increases the Lasix, he probably w ill not have hospitalizations like this any further. DYLON/MARGOTHL Voice ID: [id number] Report ID: [id number]
--- NOTE | 2019-08-20 22:21 | DS ---
Date of Discharge: 08/20/2019 Discharge Diagnoses: 1.Hypertension emergency. 2.Overweight. 3.Diabetes mellitus. 4.Coronary artery disease. 5.Depression anxiety. 6.Hyperlipidemia. 7.History of cerebrovascular accident. Consult: Cardiology. Procedures: None. History Of Present Illness: Please refer to Dr. Suarez's admission note. Hospital Course: Initially, the patient presented with dyspnea. In the emergency room, he was found to have very high blood pressure with blood pressure 260/160. Patient was started on IV diuretics a s well as nitroglycerin drip. Blood pressure improved. Patient was admitted to the ICU. Echocardio gram 6 months ago did not reveal any abnormal disease. Urine drug screen was negative. Cardiac enzy mes were negative as well. BNP was at 4347. Dr. Brumfield had seen the patient yesterday and he weaned him off the nitroglycerin drip, increased his the lisinopril to 40 as well as the Lasix to 40 twice a day. Blood pressure improved. Currently is 170/90. Patient will be discharged to home in stable condition. He advised strongly to keep blood pressure log and follow up with Dr. Brumfield to adjust hi s blood pressure medication as outpatient. Advised to come back if he is having any chest pain. Discharge Condition: Stable. Discharged Diet: Cardiac and diabetic 1800 ADA. Discharge Activity: As tolerated. Avoid exertion. Discharge Physical Examination: Vital Signs: Blood pressure at 177/69, respiratory rate 16, pulse 6 4, temperature 97.1, blood pressure will be repeated after hydralazine as well. General: He is alert and oriented x3. Does not look in any distress. HEENT: Atraumatic, normocephalic. PERRLA. Oral mucosa is moist. Neck: Supple. No JVD. No carotid bruits. Chest: Clear to auscultation. Good air entry. Heart: Regular rhythm. S1, S2 normal. No gallop or murmur. Abdomen: Soft. No masses. No hepatosplenomegaly. Positive bowel sounds. Extremities: No clubbing, cyanosis, or edema. No calf tenderness. Neurologic: Grossly intact. Discharge Medications: Lasix 40 mg twice a day, lisinopril 40 mg daily, Plavix 75 mg once a day, Dep akote 5 mg twice a day, Lexapro 10 mg daily, gabapentin 100 mg twice a day, Amaryl 2 mg twice a day, insulin Degludec 20 units daily, Atrovent every 6 hours, metformin 1000 mg twice a day, metoprolol/hy drochlorothiazide 25/12.5 daily, Protonix 40 mg twice a day, potassium chloride 20 mEq daily, Crestor 20 mg daily, lisinopril 40 mg daily. The patient will be advised to follow up with primary care physician and Dr. Brumfield next week. They will need to follow up on his potassium as we increase his Lasix and make sure he is able to tolerate that well and make sure his blood pressure well controlled or they have to adjust blood pressure med ication or add others like Imdur or hydralazine. TOSIN/ALEX Voice ID: [id number] Report ID: [id number]
== END 2019-08-20 13:16 | disposition home or self-care (01) | DRG 304 ==
LOC: ER 03:06 → ERHOLD 06:20 → 3RD-ICU 07:13
PROVIDERS: ADMIT Hospitalist; ATTEND Hospitalist
PROC: 5A09357 Assistance with Respiratory Ventilation, Less than 24 Consecutive Hours, Continuous Positive Airway Pressure (ICD-10-PCS; principal; 2019-08-19)
DX: I16.1 Hypertensive emergency (principal); I50.33 Acute on chronic diastolic (congestive) heart failure; R06.03 Acute respiratory distress; I25.10 Atherosclerotic heart disease of native coronary artery without angina pectoris; F41.8 Other specified anxiety disorders; E11.9 Type 2 diabetes mellitus without complications; E78.5 Hyperlipidemia, unspecified; Z85.038 Personal history of other malignant neoplasm of large intestine; Z95.5 Presence of coronary angioplasty implant and graft; F17.210 Nicotine dependence, cigarettes, uncomplicated; E66.3 Overweight; Z68.31 Body mass index [BMI] 31.0-31.9, adult; I11.0 Hypertensive heart disease with heart failure
CPT/HCPCS: 36415; 71045; 80048; 80061; 82805; 82947; 83735; 83880; 84100; 84484; 85025; 85610; 93005; 93306; 94640; 96365; 96366; 96375; 99291; J0360; J1650; J1940; J7030

== ENCOUNTER 2021-09-05 18:39 | Inpatient (IN) | payer MEDICARE ==
--- OUTSIDE RECORDS SUMMARY | 2021-09-05 18:43 | XMS REPORT | Continuity of Care Document ---
:1955 Author Organization [facility] t Address [address] [place] [address] Care Team Providers Name Role Phone Martínez Cortés Attending Clinician Unavailable KNOW, DOES_NOT Admitting Clinician Unavailable Payers Payer Name Policy Type Policy Number Effective Date Expiration Date S [facility] [id number] 2021 (MEDICARE 00:00:00 REPLACEMENT HMO) Problems This patient has no known problems. Allergies, Adverse Reactions, Alerts Allergy Allergy Status Severity Reaction(s) Onset Inactive Treating Comm ents Source Name Type Date Date Clinician No Known DA Active U [facility] Allergie 03-05 Pearlan s 00:00: d 00 [facility] No Known DA Active U [facility] Allergie 03-05 Pearlan s 00:00: d 00 [facility] Medications This patient has no known medications. Procedures This patient has no known procedures. Encounters Start End Encounter Admission Attending Care Care Encounter Source Date/Time Date/Time Type Type Clinicians Facility Department ID 2021-07-17 2021-07-17 Outpatient [facility] [id number] [facility] 02:00[facility]00 02:00:00 [facility] 2021-07-11 2021-07-11 Outpatient [facility]CI [id number] [facility] 08:01:00 08:01:00 Medica l Group 2021-03-06 2021-03-06 Outpatient NANCY Carmona [id number] [facility] 06:14:00 06:14:00 Martínez [id number] [facility] Results Test Description Test Time Test Comments Results Result Comments Source BASIC METABOLIC PANEL 2021-03-05 15:55:00 Test Item Value Reference Range Interpretation Comme nts SODIUM (test code = NA) 138 mmol/L 134-147 N POTASSIUM (test code = K) 5.0 mmol/L 3.4-5.0 N CHLORIDE (test code = CL) 105 mmol/L 100-108 N CARBON DIOXIDE (test code = CO2) 27 mmol/L 21-32 N ANION GAP (test code = GAP) 6.0 GAP calc 4.0-15.0 N GLUCOSE (test code = GLU) 90 MG/DL 70-110 N BLOOD UREA NITROGEN (test code = BUN) 37 MG/DL 7-18 H GLOMERULAR FILTRATION RATE (test code = GFR) 43 estGFR >60 L CREATININE (test code = CREAT) 1.7 MG/DL 0.8-1.3 H CALCIUM (test code = CA) 9.0 MG/DL 8.5-10.1 N COVID 19 INHOUSE [id number] 15:46:00 Test Item Value Reference Range Interpretation Comments COVID 19 INHOUSE AG NEGATIVE Negative Per manu facturer, (test code = negative result s should [id number]) be treated aspr esumptive and, if inconsi stent with clinical signs andsymptoms or necessary for patient man agement, should betested with an alternative mol ecular assay. Negative resultsdo not preclude SA RS-CoV-2 infection and s hould not be usedas the s ole basis for patient man agement decisions. Neg ative results should be considered in t he context of apatient's r ecent exposures, hist ory, presence of cli nicalsigns and symptoms co nsistent with COVID-19. THROMBOPLASTIN TIME [id number] 15:39:00 Test Item Value Reference Range Interpretation Comments THROMBOPLASTIN TIME PARTIAL 30.4 SECONDS 26-35 N (test code = PTT) CBC W/AUTO [id number] 15:29:00 Test Item Value Reference Range Interpretation Comments WHITE BLOOD CELL (test code = 9.1 K/mm3 3.5-11.0 N WBC) RED BLOOD CELL (test code = 3.84 M/mm3 4.70-6.10 L RBC) HEMOGLOBIN (test code = HGB) 10.5 G/DL 12.3-15.9 L HEMATOCRIT (test code = HCT) 33.9 % 35.8-46.7 L MEAN CELL VOLUME (test code = 88.3 Fl 86.3-98.9 N MCV) MEAN CELL HGB (test code = MCH) 27.3 pg 28.9-34.4 L MEAN CELL HGB CONCETRATION 31.0 G/DL 32.1-34.5 L (test code = MCHC) RED CELL DISTRIBUTION WIDTH 16.2 SD 11.5-14.5 H (test code = RDW) PLATELET COUNT (test code = 211 K/mm3 150-450 N PLT) MEAN PLATELET VOLUME (test code 12.70 fL 7.0-9.6 H = MPV) NEUTROPHIL % (test code = NT%) 55.6 % 40-76 N IMMATURE GRANULOCYTE % (test 0.6 % 0.0-5.0 N code = IG%) LYMPHOCYTE % (test code = LY%) 31.7 % 20.5-51.1 N MONOCYTE % (test code = MO%) 8.5 % 1.7-9.3 N EOSINOPHIL % (test code = EO%) 2.8 % 0.0-6.0 N BASOPHIL % (test code = BA%) 0.8 % 0.0-2.0 N NUCLEATED RBC % (test code = 0.0 /100WBC% 0.0-1.0 N NRBC%) NEUTROPHIL # (test code = NT#) 5.1 K/mm3 1.8-7.6 N IMMATURE GRANULOCYTE # (test 0.05 x10 3/uL 0.00-0.03 H code = IG#) LYMPHOCYTE # (test code = LY#) 2.9 K/mm3 0.6-3.0 N MONOCYTE # (test code = MO#) 0.8 K/mm3 0.2-1.5 N EOSINOPHIL # (test code = EO#) 0.3 K/mm3 0.0-0.4 N BASOPHIL # (test code = BA#) 0.1 K/mm3 0.0-0.2 N NUCLEATED RBC # (test code = 0.0 K/mm3 0.00-0.01 N NRBC#) MANUAL DIFF REQUIRED (test code NO DIFF/SCN CRITERIA = MDIFF)
[2021-09-05 20:05] LABS: Absolute Lymphocytes (CBC) 1.9 K/uL (0.7-4.9); Hematocrit 20.5 % (39.6-49.0); Lymphocytes % 15.3 % (15.3-44.8); MPV 8.8 fL (7.6-11.3); RBC Red Blood Cell Count 2.52 M/uL (4.33-5.43)
[2021-09-05 20:17] LABS: Protime INR 0.97
[2021-09-05] MEDS ORDERED: ONDANSETRON 4 MG (ODT) TAB ONE (20:20)
--- NOTE | 2021-09-05 20:47 | RAD REPORT ---
EXAM DESCRIPTION: RAD - Chest Single View - 09/05/2021 8:25 pm CLINICAL HISTORY: AMS COMPARISON: Portable August 2013 TECHNIQUE: AP portable chest image was obtained 09/05/2021 8:25 pm . FINDINGS: Lungs are clear. Low lung volumes accentuate the interstitial pattern. Heart and vasculatu re are normal. No measurable pleural effusion and no pneumothorax. No acute bony abnormality seen. No acute aortic findings suspected. IMPRESSION: No acute cardiopulmonary process.
[2021-09-05] MEDS ORDERED: PANTOPRAZOLE 40 MG INJ ONE ×2 (20:49)
[2021-09-05] MEDS ORDERED: D10W 250 ML IV ONE (20:49)
[2021-09-05] MEDS ORDERED: NA CHLORIDE 0.9% 250 ML ONE ×2 (20:49→22:41)
[2021-09-05 21:05] LABS: BUN Blood Urea Nitrogen 31 mg/dL (7-18); Bicarbonate 24 mmol/L (21-32); Glucose Level 76 mg/dL (74-106); Potassium 4.9 mmol/L (3.5-5.1); Sodium Level 138 mmol/L (136-145)
[2021-09-05 21:18] LABS: ALT/SGPT 15 U/L (12-78); AST/SGOT 7 U/L (15-37); Albumin 3.2 g/dL (3.4-5.0); Alkaline Phosphatase 60 U/L (45-117); Bilirubin Direct < 0.1 mg/dL (0-0.2); Bilirubin Total 0.2 mg/dL (0.2-1.0); Magnesium 2.5 mg/dL (1.8-2.4); NT PRO-BNP 1368 pg/mL (<125); Protein, Total 7.1 g/dL (6.4-8.2)
--- NOTE | 2021-09-05 21:18 | RAD REPORT ---
EXAM DESCRIPTION: CT - Head Brain Wo Cont - 09/05/2021 8:55 pm CLINICAL HISTORY: vision problem, weakness, fatigue COMPARISON: CT head 05/05/2019 TECHNIQUE: Axial 5 mm thick images of the head were obtained without IV contrast. All CT scans are performed using dose optimization technique as appropriate and may include automated exposure control or mA/KV adjustment according to patient size. FINDINGS: No intracranial hemorrhage, mass, edema or shift of mid-line structures. No acute infarcti on changes seen. No cortical edema or sulcal effacement. Cerebral white matter chronic ischemic aguilar es are mild. Atrophy changes are mild to moderate for age and have progressed from 2019. Ventricles a re in proportion to the volume loss. Mastoid air cells and visualized portions of the paranasal sinuses are clear. No acute bony findings. IMPRESSION: No acute intracranial finding identifiable. Atrophy changes are present mild to moderate for age and progressive from 2019.
--- NOTE | 2021-09-05 21:21 | RAD REPORT ---
EXAM DESCRIPTION: CT - Abdomen Pelvis Wo Contrast - 09/05/2021 9:11 pm CLINICAL HISTORY: GI BLEED COMPARISON: Abdomen Pelvis W Contrast dated 05/05/2019 TECHNIQUE: Axial [address] imaging of the abdomen and pelvis was performed without IV contrast. No IV contrast was given because of allergy, abnormal renal function, patient refusal or physician re quest. No oral contrast administered. All CT scans are performed using dose optimization technique as appropriate and may include automated exposure control or mA/KV adjustment according to patient size. FINDINGS: No suspicious findings in the lung bases. The liver, spleen and pancreas show no suspicious findings on non-contrast imaging. Gallbladder and b iliary tree are also without suspicious finding. No hydronephrosis or suspicious renal mass. No significant adrenal finding. Isodense renal masses an d pyelonephritis cannot be excluded in the absence of IV contrast. Well filled urinary bladder shows no suspicious findings. No dilated bowel loops or bowel wall thickening. Appendix is normal. No free air, free fluid or infla mmatory stranding. No hernia, mass or bulky lymphadenopathy. Disc and bone degenerative changes are present. IMPRESSION: Non-contrast enhanced CT abdomen and pelvis imaging shows no acute or emergent finding. Full assessment is limited is the absence of IV contrast.
--- NOTE | 2021-09-05 21:40 | EDPHYS ---
Physician Documentation [facility] Name: Barrington Fletcher Age: 65 yrs Sex: Male : 1955 Arrival Date: 09/05/2021 Time: 18:46 Bed 27 Private MD: ED Physician Jasbir Byrnes HPI: 09/05 20:26 This 65 yrs old Male presents to ER via Ambulatory with complaints of Vision sp3 Problem, Low Blood Sugar, weakness. 20:26 65-year-old male with a history of prior RI, hypertension, diabetes, peripheral sp3 neuropathy presents with chief complaint generalized weakness, decreased energy, and occasional blurry vision. Patient also states that he has had foul-smelling stools and dark-colored stools episodically over the last several weeks. No prior history of anemia. He denies headache, focal weakness or new sensory change, neck pain, chest pain, shortness of breath, back pain, rash, or any other symptoms on ROS. Patient does state that he feels bloated as of late. Patient does not have a heavy drinking history or prior liver problems or prior GI bleed. Last documented hemoglobin is 11 on his last ER visit.. Historical: - Allergies: 19:05 No Known Allergies; ll1 - Home Meds: 20:09 divalproex 500 mg Oral Tb24 1 tab twice a day [Active]; metformin 750 mg oral Tb24 sm5 twice a day [Active]; glimepiride 2 mg Oral tab twice a day [Active]; gabapentin 300 mg Oral cap twice a day [Active]; lisinopril 20 mg Oral tab 1 tab once daily [Active]; Tresiba FlexTouch U-100 100 unit/mL (3 mL) subcutaneous inpn 20 unit daily [Active]; rosuvastatin 20 mg Oral tab twice a day [Active]; escitalopram oxalate 10 mg Oral tab 1 tab once daily [Active]; hydrochlorothiazide 25 mg Oral tab 1 tab once daily [Active]; metoprolol tartrate 25 mg Oral tab 1 tab once daily [Active]; aspirin 81 mg Oral tab [Active]; Farxiga 5 mg oral tab 1 tab once daily [Active]; - PMHx: 19:05 CVA; Myocardial infarction; x2; Hypertension; Diabetes - NIDDM; neuropathy; ll1 - PSHx: 19:05 veins unclogged in legs; ll1 - Immunization history:: Client reports receiving the 2nd dose of the Covid vaccine, Flu vaccine status is unknown. - Social history:: Smoking status: Patient reports the use of cigarette tobacco products, smokes one-half pack cigarettes per day. ROS: 20:28 Constitutional: Negative for fever, chills, and weight loss, Eyes: Negative for injury, sp3 pain, redness, and discharge, Neck: Negative for injury, pain, and swelling, Cardiovascular: Negative for chest pain, palpitations, and edema, Respiratory: Negative for shortness of breath, cough, wheezing, and pleuritic chest pain, Back: Negative for injury and pain, MS/Extremity: Negative for injury and deformity, Skin: Negative for injury, rash, and discoloration, Neuro: Negative for headache, weakness, numbness, tingling, and seizure, Psych: Negative for depression, anxiety, suicide ideation, homicidal ideation, and hallucinations, Allergy/Immunology: Negative for hives, rash, and allergies, Endocrine: Negative for neck swelling, polydipsia, polyuria, polyphagia, and marked weight changes. 20:28 All other systems are negative. Exam: 20:29 Constitutional: This is a well developed, well nourished patient who is awake, alert, sp3 and in no acute distress. Head/Face: Normocephalic, atraumatic. Eyes: Pupils equal round and reactive to light, extra-ocular motions intact. Lids and lashes normal. Conjunctiva and sclera are non-icteric and not injected. Cornea within normal limits. Periorbital areas with no swelling, redness, or edema. ENT: Nares patent. No nasal discharge, no septal abnormalities noted. External auditory canals are clear. Oropharynx with no redness, swelling, or masses, exudates, or evidence of obstruction, uvula midline. Mucous membranes moist. Neck: Trachea midline, no thyromegaly or masses palpated, and no cervical lymphadenopathy. Supple, full range of motion without nuchal rigidity, or vertebral point tenderness. No Meningismus. Chest/axilla: Normal chest wall appearance and motion. Nontender with no deformity. No lesions are appreciated. Cardiovascular: Regular rate and rhythm with a normal S1 and S2. No gallops, murmurs, or rubs. Normal PMI, no JVD. No pulse deficits. Respiratory: Lungs have equal breath sounds bilaterally, clear to auscultation and percussion. No rales, rhonchi or wheezes noted. No increased work of breathing, no retractions or nasal flaring. Abdomen/GI: Soft, non-tender, with normal bowel sounds. No distension or tympany. No guarding or rebound. No evidence of tenderness throughout. Back: No spinal tenderness. No costovertebral tenderness. Full range of motion. MS/ Extremity: Pulses equal, no cyanosis. Neurovascular intact. Full, normal range of motion. Neuro: Awake and alert, GCS 15, oriented to person, place, time, and situation. Cranial nerves II-XII grossly intact. Motor strength 5/5 in all extremities. Sensory grossly intact. Cerebellar exam normal. Normal gait. 20:29 EKG demonstrates normal sinus rhythm at 63 bpm, OR interval of 168, right bundle branch block, nonspecific diffuse ST/T changes without evidence of acute ischemia. 20:29 Skin: Pallor noted.. Vital Signs: 19:06 BP 101 / 59; Pulse 69; Resp 18; Temp 98.2; Pulse Ox 99% ; Weight 86.18 kg; Height 5 ft. ll1 4 in. (162.56 cm); Pain 10/10; 21:00 BP 143 / 51; Pulse 62; Resp 12; Pulse Ox 100% on R/A; sm5 19:06 Body Mass Index 32.61 (86.18 kg, 162.56 cm) ll1 Visual Acuity: 20:01 Left Eye Visual acuity 20/70, ; Right Eye Visual acuity 20/50, ; Both Eyes Visual sm5 acuity 20/70; With Lenses; MDM: 20:12 Patient medically screened. sp3 20:30 Data reviewed: vital signs, nurses notes. ED course: 65-year-old male with generalized sp3 weakness, hypoglycemia, and new onset anemia with likely slow GI bleed given his history of melena. Vital signs are normal. Patient received apple juice in triage for a glucose of 44. However patient is now n.p.o. and we will administer glucose intravenously as needed. Repeat glucose after the apple juice was 62. Hemoglobin is 6.4 we will transfuse 2 units of PRBCs and admit patient for GI consult. Patient will remain n.p.o. Protonix IV has been started including a drip. I do believe patient has any secondary process including CVA, sepsis, ICH, ACS, mesenteric ischemia, bowel obstruction, any other critical findings at this time. Patient's med history has him on Plavix and aspirin which she has been taking. No other anticoagulants noted. Patient's PCP is Dr. Orellana.. 21:37 ED course: CT scan of the head and abdomen reviewed which demonstrate no acute sp3 abnormality though the abdomen was noncontrast. Laboratory values reviewed and patient is getting transfused. Will admit to hospitalist service under Dr. Leyva.. 09/05 19:23 Order name: Glucose, Ancillary Testing [facility] 09/05 19:30 Order name: Basic Metabolic Panel; Complete Time: 21:21 3 09/05 19:30 Order name: CBC with Diff; Complete Time: 20:22 [facility] 09/05 19:30 Order name: LFT's; Complete Time: 21:21 3 09/05 19:30 Order name: Magnesium; Complete Time: 21:21 3 09/05 19:30 Order name: NT PRO-BNP; Complete Time: 21:21 3 09/05 19:30 Order name: PT-INR; Complete Time: 20:22 3 09/05 19:30 Order name: Troponin HS; Complete Time: 21:21 3 09/05 20:08 Order name: COVID-19 SARS RT PCR (Document "Date of Onset" if Symptomatic) la1 09/05 20:09 Order name: SARS-COV-2 RT PCR; Complete Time: 22:33 [facility] 09/05 20:19 Order name: Glucose, Ancillary Testing; Complete Time: 20:22 [facility] [place] 09/05 20:25 Order name: PRBC 3 09/05 20:25 Order name: ABO/RH typing [facility] [place] 09/05 19:30 Order name: XRAY Chest (1 view); Complete Time: 21:02 3 09/05 19:30 Order name: EKG; Complete Time: 19:31 3 09/05 19:30 Order name: Cardiac monitoring; Complete Time: 19:53 3 09/05 19:30 Order name: EKG - Nurse/Tech; Complete Time: 19:53 3 09/05 19:30 Order name: IV Saline Lock; Complete Time: 19:53 3 09/05 19:30 Order name: Labs collected and sent; Complete Time: 19:53 sp3 09/05 19:30 Order name: O2 Per Protocol; Complete Time: 19:53 sp3 09/05 19:30 Order name: CT Head Brain wo Cont; Complete Time: 21:21 sp3 09/05 20:25 Order name: Antibody Screen [facility] 09/05 21:11 Order name: Abdomen ; Complete Time: 21:37 [facility] 09/05 21:41 Order name: ABO/RH no charge; Complete Time: 21:47 [facility] 09/05 22:08 Order name: Glucose, Ancillary Testing; Complete Time: 22:33 [facility] 09/05 19:30 Order name: O2 Sat Monitoring; Complete Time: 19:53 sp3 09/05 19:30 Order name: Visual Acuity; Complete Time: 20:01 sp3 09/05 19:30 Order name: NPO; Complete Time: 20:01 sp3 Administered Medications: 21:24 Drug: ProTONIX (pantoprazole) 40 mg Route: IVP; Site: right antecubital; 5 21:24 Drug: ProTONIX (pantoprazole) 8 mg/hr Route: IV; Rate: 25 ml/hr; Site: right sm5 antecubital; 21:24 Drug: D10 in Water [2 mL/kg] 250 ml Route: IVP; Site: left antecubital; 5 Disposition Summary: 09/05/21 21:39 Hospitalization Ordered Hospitalization Status: Inpatient Admission sp3 Provider: Juan Leyva sp3 [facility] sp3 Condition: Stable sp3 Problem: new sp3 Symptoms: have worsened sp3 Bed/Room Type: Standard sp3 Room Assignment: 213(09/05/21 23:14) Diagnosis - Melena sp3 - Anemia, unspecified sp3 Forms: - Medication Reconciliation Form sp3 - SBAR form sp3 Signatures: Dispatcher [employer] EDMS Hever Eastman FNP-C FNP-Cla1 Poonam Fletcher RN RN Trevon Dinero RN RN ll1 Jasbir Byrnes MD MD sp3 Halie García RN RN sm5 Corrections: (The following items were deleted from the chart) 20:50 20:25 TYPE AND SCREEN+BB.LAB.BRZ ordered. [facility] EDMS 21:11 20:55 Abdomen Pelvis W Con+CT.RAD.BRZ ordered. EDMS EDMS : 21:39 sp3 cg
--- NOTE | 2021-09-05 21:40 | ER ---
Nurse's Notes [facility] Name: Barrington Fletcher Age: 65 yrs Sex: Male : 1955 Arrival Date: 09/05/2021 Time: 18:46 Bed 27 Private MD: Diagnosis: Melena;Anemia, unspecified Presentation: 09/05 19:06 Chief complaint: Patient states: Shakiness, hard time walking, vision problems off/on ll1 for 2 weeks. No fever. Fingerstick 44 in triage. Coronavirus screen: Vaccine status: Patient reports receiving the 2nd dose of the covid vaccine. Client denies travel out of the [place] in the last 14 days. diarrhea, fatigue, nausea, Client presents with at least one sign or symptom that may indicate coronavirus-19. Standard/surgical mask placed on the client. Ebola Screen: Patient denies travel to an Ebola-affected area in the 21 days before illness onset. No acute neurological deficit is noted. Initial Sepsis Screen: Does the patient meet any 2 criteria? No. Patient's initial sepsis screen is negative. Does the patient have a suspected source of infection? No. Patient's initial sepsis screen is negative. Risk Assessment: Do you want to hurt yourself or someone else? Patient reports no desire to harm self or others. Onset of symptoms was August 25, 2021. 19:06 Method Of Arrival: Ambulatory ll1 19:06 Acuity: EVIE 2 ll1 Triage Assessment: 19:09 The onset of the patients symptoms was more than six hours ago. The onset of the ll1 patients symptoms was. General: Appears in no apparent distress. Behavior is calm, cooperative, appropriate for age. Pain: Complains of pain in head Quality of pain is described as aching. Neuro: Reports blurred vision headache weakness. Cardiovascular: No deficits noted. Respiratory: No deficits noted. GI: Reports nausea. Stroke Activation: Symptom onset > 6 hours Physician: Stroke Attending; Name: ; Notified At: ; Arrived At: Physician: Chief Stroke Resident; Name: ; Notified At: ; Arrived At: Physician: Stroke Resident; Name: ; Notified At: ; Arrived At: Physician: ED Attending; Name: ; Notified At: ; Arrived At: Physician: ED Resident; Name: ; Notified At: ; Arrived At: Historical: - Allergies: 19:05 No Known Allergies; ll1 - Home Meds: 20:09 divalproex 500 mg Oral Tb24 1 tab twice a day [Active]; metformin 750 mg oral Tb24 sm5 twice a day [Active]; glimepiride 2 mg Oral tab twice a day [Active]; gabapentin 300 mg Oral cap twice a day [Active]; lisinopril 20 mg Oral tab 1 tab once daily [Active]; Tresiba FlexTouch U-100 100 unit/mL (3 mL) subcutaneous inpn 20 unit daily [Active]; rosuvastatin 20 mg Oral tab twice a day [Active]; escitalopram oxalate 10 mg Oral tab 1 tab once daily [Active]; hydrochlorothiazide 25 mg Oral tab 1 tab once daily [Active]; metoprolol tartrate 25 mg Oral tab 1 tab once daily [Active]; aspirin 81 mg Oral tab [Active]; Farxiga 5 mg oral tab 1 tab once daily [Active]; - PMHx: 19:05 CVA; Myocardial infarction; x2; Hypertension; Diabetes - NIDDM; neuropathy; ll1 - PSHx: 19:05 veins unclogged in legs; ll1 - Immunization history:: Client reports receiving the 2nd dose of the Covid vaccine, Flu vaccine status is unknown. - Social history:: Smoking status: Patient reports the use of cigarette tobacco products, smokes one-half pack cigarettes per day. Screenin:32 Abuse screen: Denies threats or abuse. Denies injuries from another. Nutritional sm5 screening: No deficits noted. Tuberculosis screening: No symptoms or risk factors identified. Fall Risk None identified. Assessment: 19:20 Reassessment: pt given apple juice. sm5 20:00 General: Appears in no apparent distress. Behavior is cooperative. Neuro: Level of sm5 Consciousness is awake, alert. Cardiovascular: Reports chest pain. Respiratory: No deficits noted. Airway is patent Trachea midline Respiratory effort is even, unlabored. EENT: Reports blurred vision. 21:00 Reassessment: No changes from previously documented assessment. sm5 22:00 Reassessment: No changes from previously documented assessment. Patient and/or family sm5 updated on plan of care and expected duration. Pain level reassessed. 23:00 Reassessment: No changes from previously documented assessment. sm5 Vital Signs: 19:06 BP 101 / 59; Pulse 69; Resp 18; Temp 98.2; Pulse Ox 99% ; Weight 86.18 kg; Height 5 ft. ll1 4 in. (162.56 cm); Pain 10/10; 21:00 BP 143 / 51; Pulse 62; Resp 12; Pulse Ox 100% on R/A; sm5 19:06 Body Mass Index 32.61 (86.18 kg, 162.56 cm) 1 Visual Acuity: 20:01 Left Eye Visual acuity 20/70, ; Right Eye Visual acuity 20/50, ; Both Eyes Visual 5 acuity 20/70; With Lenses; ED Course: 18:46 Patient arrived in ED. mr 19:05 Arm band placed on. ll1 19:09 Triage completed. 1 19:21 Halie García, GIBRAN is Primary Nurse. 5 19:27 Jasbir Byrnes MD is Attending Physician. sp3 19:40 Inserted saline lock: 20 gauge in right antecubital area, using aseptic technique. 5 Blood collected. 19:53 Basic Metabolic Panel Sent. 5 19:53 CBC with Diff Sent. 5 19:53 LFT's Sent. 5 19:53 Magnesium Sent. sm5 19:53 NT PRO-BNP Sent. sm5 19:53 PT-INR Sent. sm5 19:53 Troponin HS Sent. 5 20:25 XRAY Chest (1 view) In Process Unspecified. EDMS 20:55 CT Head Brain wo Cont In Process Unspecified. EDMS 21:11 Abdomen In Process Unspecified. EDMS 21:17 Antibody Screen Sent. 5 21:17 ABO/RH typing Sent. 5 21:24 COVID-19 SARS RT PCR (Document "Date of Onset" if Symptomatic) Sent. 5 21:24 SARS-COV-2 RT PCR Sent. 5 21:26 Inserted saline lock: 20 gauge in left antecubital area, using aseptic technique. 5 21:32 Patient has correct armband on for positive identification. Bed in low position. Call [facility] light in reach. Side rails up X 1. phototypesetting equipment monitor on. Pulse ox on. NIBP on. 21:39 Juan Leyva MD is Hospitalizing Provider. sp3 09/06 02:11 No provider procedures requiring assistance completed. Patient admitted, IV remains in [facility] place. Administered Medications: 09/05 21:24 Drug: ProTONIX (pantoprazole) 40 mg Route: IVP; Site: right antecubital; 5 21:24 Drug: ProTONIX (pantoprazole) 8 mg/hr Route: IV; Rate: 25 ml/hr; Site: right sm5 antecubital; 21:24 Drug: D10 in Water [2 mL/kg] 250 ml Route: IVP; Site: left antecubital; 5 Outcome: 21:39 Decision to Hospitalize by Provider. sp3 09/06 02:12 Admitted to Med/surg accompanied by tech, via stretcher, with chart, Report called to Aníbal Mi RN Condition: stable Instructed on the need for admit. 02:12 Patient left the ED. [facility] Signatures: Dispatcher [employer] CHELSY FrancoisChichi dawkins Lynsay, RN RN ll1 Jasbir Byrnes MD MD sp3 Halie García RN RN 5 Corrections: (The following items were deleted from the chart) 09/05 19:12 19:06 Acuity: EVIE 3 ll1 ll1 19:13 19:06 Chief complaint: Patient states: Shakiness, hard time walking, vision problems ll1 off/on for 2 weeks. No fever. ll1
--- NOTE | 2021-09-06 00:06 | P.HP ---
Certification for Inpatient Patient admitted to: Inpatient With expected LOS: >2 Midnights Patient will require the following post-hospital care: None Practitioner: I am a practitioner with admitting privileges, knowledge of patient current condition, hospital course, and medical plan of care. Services: Services provided to patient in accordance with Admission requirements found in Title 42 Section 412.3 of the Code of Federal Regulations Patient History Date of Service: 09/05/21 Reason for admission: GI bleed, anemia History of Present Illness: 65-year-old male with history of diabetes mellitus type 2insulin- dependent, CAD, hypertension, previous CVA presents emergency department for feeling weak/shaky. Patient noted to be hypoglycemic upon arrival to the ER with blood sugar of 44 further evaluation revealed that patient is also significant anemia with hemoglobin 6.4 hematocrit 20.5. Patient did admit to having melena for about a week which has been proving over the course of last few days also noted to have an acute kidney injury. Patient was started on Protonix drip 2 units of packed red blood cells ordered by ED provider who wishes to admit patient for further evaluation and management of upper GI bleed, acute kidney injury, hypoglycemia. Patient reports he did not check his blood sugar prior to giving himself his insulin. Allergies No Known Allergies Allergy (Verified 03/27/19 01:52) Home Medications: Clopidogrel Bisulfate [Plavix*] 75 mg PO DAILY 05/16/14 Escitalopram [Lexapro] 10 mg PO DAILY 05/16/14 Divalproex Sodium [Depakote] 500 mg PO BID #60 tablet. 05/17/14 Insulin Degludec [Tresiba Flextouch U-200] 20 unit SQ DAILY 02/24/19 Metoprolol Mayberry/Hydrochlorothiaz [Metoprolol ER-Hctz 25-12.5 mg] 25 each PO DAILY 02/24/19 Rosuvastatin [Crestor*] 20 mg PO BEDTIME #30 tab 03/30/19 Gabapentin 300 mg PO BID 05/05/19 Glimepiride [Amaryl*] 1 tab PO BID 05/05/19 Metformin HCl 1 tab PO BID 05/05/19 Pantoprazole [Protonix Tab*] 40 mg PO BID #60 tab 05/08/19 Potassium Chloride 20 meq PO DAILY #30 tablet.er 05/08/19 Furosemide [Lasix*] 40 mg PO BID #60 tab 08/20/19 Ipratropium Neb [Atrovent*] 0.5 mg NEB [id number] amp 08/20/19 lisinopriL [Prinivil*] 40 mg PO DAILY #30 tab 08/20/19 - Past Medical/Surgical History Diabetic: Yes -: Diabetes mellitus type 2, insulin dependent -: History of TIA -: CAD -: History of colon cancer -: HTN -: Hyperlipidemia -: Lumbar, cervical spondylosis -: Osteomyelitis right great toe -: Depression -: GERD with hiatal hernia -: Tobacco abuse -: Cardiac stents -: Scrotal surgery -: Bilateral carpal tunnel surgery Psychosocial/ Personal History: The patient is . He has several childr en. - Family History Father -: Cancer Notes: lung cancer. Mother -: Diabetes, Stroke Notes: 3 aneurysisms. - Social History Alcohol use: No CD- Drugs: No Caffeine use: Yes Place of Residence: Home Review of Systems 10-point ROS is otherwise unremarkable General: Weakness Eyes: Vision Change (Patient reports problems with his vision developing weeks ago describes central area of blurriness) ENT: Other Respiratory: Shortness of Breath Physical Examination - Physical Exam General: Alert, In no apparent distress, Oriented x3 HEENT: Atraumatic, PERRLA, Other (Mucous membranes pale), EOMI, Sclerae nonicteric Neck: Supple, 2+ carotid pulse no bruit, No LAD, Without JVD or thyroid abnormality Respiratory: Clear to auscultation bilaterally, Normal air movement Cardiovascular: Regular rate/rhythm, Normal S1 S2 Gastrointestinal: Normal bowel sounds, No tenderness Musculoskeletal: No tenderness Integumentary: No rashes Neurological: Normal speech, Normal strength at 5/5 x4 extr, Normal tone, Normal affect - Studies Laboratory Data (last 24 hrs) 09/05/21 19:44: PT 11.2, INR 0.97 09/05/21 19:44: WBC 12.20 H, Hgb 6.4 L*, Hct 20.5 L*, Plt Count 267 09/05/21 19:44: Sodium 138, Potassium 4.9, BUN 31 H, Creatinine 1.95 H, Glucose 76, Magnesium 2.5 H, Total Bilirubin 0.2, AST 7 L, ALT 15, Alkaline Phosphatase 60 Assessment and Plan - Plan Assessment: Suspected upper GI bleed with acute blood loss anemia Diabetes mellitus type 2insulin-dependent with hypoglycemia Acute kidney injury History of CAD Hypertension History of CVA Plan: Suspected upper GI bleed with acute blood loss anemia: Patient received his doctor blood cells in the emergency department, continue with Protonix drip. GI has been consulted, n.p.o. We will hold patient's aspirin, Plavix that he takes at home. Patient reports he had melena for about a week which has recently been improving. Diabetes mellitus type 2insulin-dependent with hypoglycemia: Started on dextrose containing IV fluids as he will be n.p.o., sugar has been improving. Administered his insulin without checking his blood sugar. Acute kidney injury: Nephrology consulted, continue hydration, blood transfusion. Renal ultrasound and additional labs ordered. History of CAD: Monitor on telemetry, no chest pain at this time. Hypertension: Obtain and continue medication History of CVA: Need to hold aspirin, Plavix at this time. DVT PPX: SCD Code status: Full Discharge Plan: Home Plan to discharge in: 48 Hours - Advance Directives Does patient have a Living Will: Yes Does patient have a Durable POA for Healthcare: Yes - Code Status/Comfort Care Code Status Assessed: Yes (Full) Critical Care: No Time Spent Managing Pts Care (In Minutes): 55
[2021-09-06] MEDS ORDERED: ONDANSETRON 4 MG/2 ML VIAL IV PRN (00:49)
[2021-09-06 02:39] VITALS: BMI 32.5
[2021-09-06] MEDS ORDERED: D10W 250 ML IV PRN (03:03)
[2021-09-06] MEDS ORDERED: D10W 250 ML IV ONE (03:06)
[2021-09-06] MEDS: D5 0.45 NS 1,000 ML IV SCH ×3 (03:10→12:49)
[2021-09-06] MEDS: PANTOPRAZOLE INJ 80 MG in NA CHLORIDE 0.9% 250 ML IV SCH ×3 (03:11→20:49)
[2021-09-06] MEDS ORDERED: NA CHLORIDE 0.9% 250 ML ONE (04:04)
[2021-09-06 04:53] LABS: Absolute Lymphocytes (CBC) 1.6 K/uL (0.7-4.9); Lymphocytes % 17.4 % (15.3-44.8); MPV 8.7 fL (7.6-11.3); RBC Red Blood Cell Count 2.82 M/uL (4.33-5.43)
[2021-09-06 05:19] LABS: Albumin 2.7 g/dL (3.4-5.0); Bilirubin Total 0.3 mg/dL (0.2-1.0); Protein, Total 6.2 g/dL (6.4-8.2); Thyroid Stimulating Hormone 1.2 uIU/mL (0.360-3.740); Uric Acid 6.6 mg/dL (3.5-7.2)
[2021-09-06] MEDS: INSULIN -REGULAR HUMAN 50 UNIT/0.5 ML ML SQ SCH ×3 (06:00→18:00)
--- NOTE | 2021-09-06 06:23 | P.PN ---
Date of Service: 09/06/21 Subjective: Feeling a lot better this morning after blood transfusion began no new symptoms No acute events overnight per nursing ROS: 10 point ROS as noted above, otherwise negative Physical exam GEN: Alert, oriented, NAD HEENT: Normal conjunctiva, sclera anicteric CV: Regular rate and rhythm, trace b/l pedal edema Pulm: Nonlabored respirations on room air ABD: Soft, mild epigastric tenderness Neuro: Normal speech, normal affect Problem List Suspected upper GI bleed with acute blood loss anemia Diabetes mellitus type 2insulin-dependent with hypoglycemia Acute kidney injury History of CAD Hypertension History of CVA Receiving blood transfusion Hemoglobin improving Continue Protonix drip Continue IV fluids N.p.o. GI consulted, plan for EGD today Advance diet, pending EGD results OLESYA, likely secondary to component of dehydration. Nephrology consulted VTE: SCDs Code: Full Dispo: Home with, 1-2 days, pending EGD findings, advancement of diet, stable hemoglobin Time Spent Managing Pts Care (In Minutes): 35
[2021-09-06 06:44] VITALS: O2SAT 100
--- NOTE | 2021-09-06 07:03 | RAD REPORT ---
EXAM DESCRIPTION: US - Renal Ultrasound-Complete - 09/06/2021 2:56 am CLINICAL HISTORY: OLESYA COMPARISON: Abdomen Pelvis Wo Contrast dated 09/05/2021 FINDINGS: Both kidneys are normal in size, shape and echotexture. The right kidney measures 10.2. No hydronephrosis, focal mass or perinephric fluid. The left kidney measures 10.1. No hydronephrosis, focal mass or perinephric fluid. The urinary bladder is incompletely distended without gross abnormality seen. IMPRESSION: Unremarkable renal sonogram. No evidence of hydronephrosis.
[2021-09-06 07:07] LABS: Urine Appearance CLEAR (Clear); Urine Bilirubin NEGATIVE (Negative); Urine Blood NEGATIVE (Negative); Urine Color YELLOW (Yellow); Urine Glucose 2+ (Negative); Urine Protein TRACE (Negative); Urine Urobilinogen 0.2 mg/dL (0.2-1.0); Urine pH 5.5 (5.0-7.0)
[2021-09-06 07:10] LABS: Urine Microscopic Reflex ORDER UMIC
[2021-09-06] MEDS ORDERED: INSULIN -REGULAR HUMAN 50 UNIT/0.5 ML ML SQ SCH (07:30)
[2021-09-06 07:33] LABS: Urine Bacteria NONE SEEN /HPF (NONE SEEN); Urine RBC NONE SEEN /HPF (NONE SEEN)
[2021-09-06 11:22] LABS: Uric Acid 6.6 mg/dL (3.5-7.2)
--- NOTE | 2021-09-06 11:31 | EKG ---
Test Date: 2021-09-05 Test Time: 19:48:32 Converting Operator: YURIY MEASUREMENT RESULTS: Intervals: Rate: 63 NV: 168 QRSD: 120 QT: 420 QTc: 429 [place]: P: 42 NV: 168 QRS: 53 T: 110 INTERPRETIVE STATEMENTS: Normal sinus rhythm Right bundle branch block T wave abnormality, consider lateral ischemia Abnormal ECG Compared to ECG 08/19/2019 03:54:22 T-wave abnormality now present Possible ischemia now present Electronically Signed On 09-06-21 11:28:58 IMPROVEMENT LEADER by Saurabh Campbell
--- NOTE | 2021-09-06 12:16 | P.CNS ---
Date of Consult: 09/06/21 Reason for Consult: OLESYA Chief Complaint: GI bleed, anemia History of Present Illness: 65-year-old male with history of DM CKD III , Cr 1.2 in 2019 , CAD S/P PCI , diabetes mellitus type 2 on metfromin an Faxiga, CAD, hypertension on Lisinopril pt was admitted for weakness and GI bleeding , in ER hemoglobin 6.4 hematocrit 20.5., Cr 1.9 pt advised by professor of art in March to stop metformin due to worsening renal function, but PCP restrated he denied NSAID or alcohol abuse ROS General : denies fever, chills, WT change weakness, insomnia HEENT: Denies dry, vision changes and headache Resp: denies SOB, cough or wheezes Cardiovascular: : denies chest pain, palpitation GI: black colored stool and bleeding : denies dysuria, urgency, foamy urine or blood tinged urine Muscloskeltal: denies muscle aches, joint pain Endo: denies polyuria and and polydipsia Extre: denies pain numbness and swelling Physical exam General: AAOx3, NAD CHEST; CTAB, no wheezes or rales HEART : RRR. Normal S1,2 no murmur or rub Abd: soft, Nt Ext: no edema Skin : No rash A/p OLESYA on CKD III uknown baseline cr OLESYA possibly due to dehydration and IVY UA : no prot or bld US 10.1 CM B/l no hydronephrosis cont to hold lisniopril, HCTZ , metfomin and farxiga gentle hydration renal dose meds avoid SAID and contrast GI bleeding resolved now S/p PRBC HTN cont to hold HCTZ and lisinopril will start amlodipine DM SSI cont to hold metformin and farxiga Allergies No Known Allergies Allergy (Verified 03/27/19 01:52) Home Medications: Clopidogrel Bisulfate [Plavix*] 75 mg PO DAILY 05/16/14 Escitalopram [Lexapro] 10 mg PO DAILY 05/16/14 Divalproex Sodium [Depakote] 500 mg PO BID #60 tablet. 05/17/14 Insulin Degludec [Tresiba Flextouch U-200] 20 unit SQ DAILY 02/24/19 Metoprolol Mayberry/Hydrochlorothiaz [Metoprolol ER-Hctz 25-12.5 mg] 25 each PO DAILY 02/24/19 Gabapentin 300 mg PO BID 05/05/19 Glimepiride [Amaryl*] 1 tab PO BID 05/05/19 Metformin HCl 750 mg PO BID 05/05/19 Aspirin [Aspirin EC 81 MG] 81 mg PO DAILY 09/06/21 Dapagliflozin Propanediol [Farxiga] 5 mg PO DAILY 09/06/21 Rosuvastatin [Crestor*] 20 mg PO BID 09/06/21 hydroCHLOROthiazide [Hydrochlorothiazide] 25 mg PO DAILY 09/06/21 lisinopriL [Prinivil*] 20 mg PO DAILY 09/06/21 - Past Medical/Surgical History Diabetic: Yes -: Diabetes mellitus type 2, insulin dependent -: History of TIA -: CAD -: History of colon cancer -: HTN -: Hyperlipidemia -: Lumbar, cervical spondylosis -: Osteomyelitis right great toe -: Depression -: GERD with hiatal hernia -: Tobacco abuse -: Cardiac stents -: Scrotal surgery -: Bilateral carpal tunnel surgery Psychosocial/ Personal History: The patient is . He has several children. - Family History Father Medical History: Cancer Notes: lung cancer. Mother Medical History: Diabetes, Stroke Notes: 3 aneurysisms. - Social History Smoking Status: Current every day smoker Alcohol use: No CD- Drugs: No Caffeine use: Yes Place of Residence: Home Physical Examination Temp Pulse Resp BP Pulse Ox 97.1 F 55 16 171/55 H 100 09/06/21 08:00 09/06/21 08:00 09/06/21 08:00 09/06/21 08:00 09/06/21 08:00 Laboratory Data (last 24 hrs) 09/05/21 19:44: PT 11.2, INR 0.97 09/05/21 19:44: WBC 12.20 H, Hgb 6.4 L*, Hct 20.5 L*, Plt Count 267 09/05/21 19:44: Sodium 138, Potassium 4.9, BUN 31 H, Creatinine 1.95 H, Glucose 76, Magnesium 2.5 H, Total Bilirubin 0.2, AST 7 L, ALT 15, Alkaline Phosphatase 60
[2021-09-06] MEDS ORDERED: NA CHLORIDE 0.9% 1,000 ML ONE (12:21)
[2021-09-06] MEDS ORDERED: AMLODIPINE 5 MG TAB PO ONE (13:00)
[2021-09-06] MEDS ORDERED: LIDOCAINE 1% MPF 5 ML VIAL ONE (13:51)
[2021-09-06] MEDS ORDERED: propofoL 200 MG/20 ML VIAL IV ONE (13:51)
--- NOTE | 2021-09-06 14:54 | ENDO RPT ---
[address], [address] EGD PROCEDURE REPORT EXAM DATE: 09/06/2021 PATIENT NAME: Barrington Fletcher MR#: [id number] BIRTHDATE: 1955 ATTENDING: Jose Forbes Dr STATUS: inpatient - [facility] SPECIALIST: eLti Valdes RN and Jazmyne Peñaloza INDICATIONS: The patient is a 65 yr old Male here for an EGD due to melenic bleeding, anemia, and nausea PROCEDURE PERFORMED: EGD with biopsy MEDICATIONS: Per Anesthesia. TOPICAL ANESTHETIC: none CONSENT: The patient understands the risks and benefits of the procedure and understands that these risks include, but are not limited to: sedation, allergic reaction, infection, perforation and/or bleeding. Alternative means of evaluation and treatment include, among others: physical exam, x-rays, and/or surgical intervention. The patient elects to proceed with this endoscopic procedure. DESCRIPTION OF PROCEDURE: During intra-op preparation period all mechanical medical equipment was checked for proper function. Hand hygiene and appropriate measures for infection prevention was taken. Procedure, possible complications, and alternatives including but not limited to the possibility of bleeding, perforation, tear, infection, sepsis, need for surgery, need for blood transfusion, and anesthesia related complications were explained to the patient. After the risks, benefits and alternatives of the procedure were thoroughly explained, Informed consent was verified, confirmed and timeout was successfully executed by the treatment team. The patient was placed in the left lateral position. The patient was anesthetized with topical anesthesia. Through the anesthetized oropharyngeal area, the scope was passed without any difficulty. The EG-[id number] ([id number]) endoscope was introduced through the mouth and advanced to the third portion of the duodenum. Retroflexed views revealed no abnormalities. The gastroscope was then slowly withdrawn and removed. LA class B esophagitis was found in the lower esophagus. Possible Higgins's esophagus was found in the lower esophagus. With jumbo forceps, a biopsy was obtained and sent to pathology. Mild gastritis was found in the antrum. Multiple biopsies were obtained and sent to pathology. Multiple erosions were found in the antrum. Duodenitis was found in the bulb of the duodenum. ADVERSE EVENTS: There were no complications. IMPRESSIONS: 1. LA class B esophagitis in the lower esophagus 2. Possible Higgins's esophagus in the lower esophagus, s/p biopsy 3. Mild gastritis in the antrum 4. Multiple (6) erosions in the antrum 5. Duodenitis in the bulb of the duodenum RECOMMENDATIONS: 1. await biopsy results 2. acid suppression therapy REPEAT EXAM: Jose Forbes Dr eSigned: Jose Forbes Dr 09/06/2021 2:53 PM cc: CPT CODES: ICD9 CODES: PATIENT NAME: Barrington Fletcher MR#: [id number]
[2021-09-06] MEDS: HYDRALAZINE HCL 20 MG/ML VIAL IV PRN (20:31)
[2021-09-06] MEDS ORDERED: ACETAMINOPHEN 325 MG TABLET PO ONE (22:40)
--- NOTE | 2021-09-06 23:03 | CON ---
Date of Consultation: 09/06/2021 Reason For Consultation: Melena, nausea, diarrhea; postprandial. History Of Present Illness: The patient is a 65-year-old male with diabetes, hypertension, coronary artery disease, status post stroke. The patient came to the hospital due to melena for over the past week at least and anemia. He also reports nausea and postprandial diarrhea with episodes o f fecal incontinence over the past year. Past Medical History: Significant for diabetes, hypertension, TIA, stroke, coronary artery disease, colon cancer, hyperlipidemia, lumbar cervical stenosis, osteomyelitis of the right great toe, depress ion, gastroesophageal reflux disease, hiatal hernia, tobacco abuse, cardiac stent, surgery , bilateral carpal tunnel surgery. Medications: Include Plavix, Lexapro, Depakote, insulin, metoprolol, Crestor, gabapentin, Amaryl, me tformin, Protonix, potassium, Lasix, Atrovent, Prinivil. Allergies: NKDA. Social History: . Three children. Tobacco, half pack per day. No alcohol. Family History: Father of lung cancer. Mother of 3 cerebral aneurysms, diabetes, and a my ocardial infarction. Review of Systems: Patient has melena, nausea, diarrhea. Denies any hematemesis, coffee-grounds emesis, no real emesis. No chest pain, shortness of breath, seizure, syncope, muscle aches, joint aches, backaches, fevers, chills, night sweats, change in bowel habits, hemoptysis, epistaxis. Physical Examination: Vital Signs: He is 5 feet 4 inches, 190 pounds. BMI of 32.6 kg/m2. He has a temperature of 97.3 de grees Fahrenheit, pulse 97, respirations 16, blood pressure 129, 47, O2 saturation 100%. General: He is a well-nourished, well-developed male, slightly overweight, in no acute dist ress. HEENT: Normocephalic, atraumatic. Anicteric. Pupils equal, round, and reactive to light. Extraocu lar eye movements were intact. Oropharynx clear. Neck: Supple, no masses. Respirations: Clear to auscultation bilaterally. Cardiac: Regular rhythm. Gastrointestinal: Positive bowel sounds. Soft, nontender, nondistended. No hepatosplenomegaly, jus t slightly obese. Extremities: No clubbing, cyanosis, or edema. Some mild lower extremity edema. Neurologic: Alert and oriented x3. Grossly nonfocal. 5/5 motor. A little decreased sensation in th e lower extremities. Laboratory Data: The patient on admission, hemoglobin 6.4, now up to 9.6, white count is 20.2, down to 9.0 today, MCV of 81 on admission, platelet count 225 today, polys 71%. PT 11.2, INR 0.97. Chemi stry: Sodium 138, potassium 4.0, chloride 108, bicarb 25, BUN of 27, creatinine of 1.63, glucose 143 , uric acid 6.6, calcium 7.9. Total bilirubin 0.3, AST of 8, ALT 12, alk phos 55. , total protein 6.2, albumin 2.7. TSH of 1.2 and free T4 0.76. UA 2+ glucose, trace protein. Serology: N egative COVID-19 testing. CTs I can't access them. It appears they were largely unremarkable since they are not mentioned in t he chart. Impression: 1.Melena, needs investigative esophagogastroduodenoscopy. 2.Possibly colonoscopy. 3.Nausea. 4.Postprandial diarrhea over the past year with fecal incontinence episodes. 5.History of diabetes, hypertension, hyperlipidemia, stroke, and others as per above. Recommendation: 1.EGD. 2.Serial H and H, and transfuse p.r.n. 3.PPI therapy. 4.P.r.n. antiemetics. 5.Consider colonoscopy and small bowel evaluation. 6.We will also check iron indices in this patient. DAVID/ALEX Voice ID: [id number] Report ID: [id number]
[2021-09-07] MEDS: D5 0.45 NS 1,000 ML IV SCH (04:41)
[2021-09-07 05:33] LABS: Absolute Lymphocytes (CBC) 1.6 K/uL (0.7-4.9); Hematocrit 28.1 % (39.6-49.0); Lymphocytes % 18.3 % (15.3-44.8); RBC Red Blood Cell Count 3.38 M/uL (4.33-5.43)
[2021-09-07 05:49] LABS: Albumin 2.8 g/dL (3.4-5.0); Bilirubin Total 0.3 mg/dL (0.2-1.0); Potassium 4.3 mmol/L (3.5-5.1); Protein, Total 6.4 g/dL (6.4-8.2)
[2021-09-07] MEDS: INSULIN -REGULAR HUMAN 50 UNIT/0.5 ML ML SQ SCH ×2 (06:00)
--- NOTE | 2021-09-07 06:37 | P.PN ---
Date of Service: 09/07/21 Subjective: ROS: 10 point ROS as noted above, otherwise negative Physical exam GEN: Alert, oriented, NAD HEENT: Normal conjunctiva, sclera anicteric CV: Regular rate and rhythm, trace b/l pedal edema Pulm: Nonlabored respirations on room air ABD: Soft, mild epigastric tenderness Neuro: Normal speech, normal affect Problem List Suspected upper GI bleed with acute blood loss anemia Diabetes mellitus type 2insulin-dependent with hypoglycemia Acute kidney injury History of CAD Hypertension History of CVA Receiving blood transfusion Hemoglobin improving Continue Protonix drip Continue IV fluids N.p.o. GI consulted, plan for EGD today Advance diet, pending EGD results OLESYA, likely secondary to component of dehydration. Nephrology consulted VTE: SCDs Code: Full Dispo: Home with, 1-2 days, pending EGD findings, advancement of diet, stable hemoglobin Time Spent Managing Pts Care (In Minutes): 35
[2021-09-07] MEDS ORDERED: AMLODIPINE 5 MG TAB PO SCH (09:00)
[2021-09-07] MEDS ORDERED: PANTOPRAZOLE INJ 80 MG in NA CHLORIDE 0.9% 250 ML IV SCH (10:00)
[2021-09-07] MEDS ORDERED: PANTOPRAZOLE 40MG TABLET PO ONE (10:36)
[2021-09-07] MEDS: HYDRALAZINE HCL 20 MG/ML VIAL IV PRN (11:18)
[2021-09-07 12:06] VITALS: BP 220/86; TEMP 97.7
--- NOTE | 2021-09-07 18:03 | P.DS ---
Admission Date: 09/05/21 Discharge Date: 09/07/21 Disposition: ROUTINE DISCHARGE Discharge Condition: GOOD Reason for Admission: GI bleed, anemia Consultations: GI Nephrology Procedures: Problem List acute blood loss anemia secondary to Gastritis, Esophagitis with possible Higgins's esophagus Diabetes mellitus type 2insulin-dependent with hypoglycemia Acute kidney injury History of CAD Hypertension History of CVA Brief History of Present Illness: 65-year-old male with history of diabetes mellitus type 2insulin- dependent, CAD, hypertension, previous CVA presents emergency department for feeling weak/shaky. Patient noted to be hypoglycemic upon arrival to the ER with blood sugar of 44 further evaluation revealed that patient is also significant anemia with hemoglobin 6.4 hematocrit 20.5. Patient did admit to having melena for about a week which has been proving over the course of last few days also noted to have an acute kidney injury. Patient was started on Protonix drip 2 units of packed red blood cells ordered by ED provider who wishes to admit patient for further evaluation and management of upper GI bleed, acute kidney injury, hypoglycemia. Patient reports he did not check his blood sugar prior to giving himself his insulin. Hospital Course: Patient was found to have an upper GI bleed secondary to gastritis/esophagitis. He was found to be anemic, which improved and was stable after 2 units of PRBCs and protonix. He underwent EGD by Dr. Forbes. To continue protonix on discharge. Continue protonix. Restart aspirin in ~4 days. He was also found to have acute kidney injury, which improved to near baseline levels with IV fluid hydration. Nephrology was consulted, and patient instructed to follow up with them in the office in ~1-2 weeks. He is to hold his HCTZ His glucose was noted to be low on admission, secondary to hypoglycemic medication and not eating. On discharge, recommend continuing with metformin and starting at 10units of Tresiba. To slowly increase Tresiba over the next few days depending on glucose levels. Increasing by a few units if fasting glucose remains > 200 He will record his glucose readings and follow up with PCP within 1 week. Hold other diabetes medications for now. Discussed glucose levels will increase as he continues to improve and eat more. Vital Signs/Physical Exam: Temp Pulse Resp BP Pulse Ox 97.7 F 69 16 220/86 H 69 L 09/07/21 12:00 09/07/21 12:00 09/07/21 12:00 09/07/21 12:00 09/07/21 12:00 Physical exam GEN: Alert, oriented, NAD HEENT: Normal conjunctiva, sclera anicteric CV: Regular rate and rhythm, trace b/l pedal edema Pulm: Nonlabored respirations on room air ABD: Soft, mild epigastric tenderness Neuro: Normal speech, normal affect Laboratory Data at Discharge: WBC 8.70 K/uL (4.3-10.9) 09/07/21 04:38 Hgb 9.1 g/dL (13.6-17.9) L 09/07/21 04:38 Hct 28.1 % (39.6-49.0) L 09/07/21 04:38 Plt Count 225 K/uL (152-406) 09/07/21 04:38 PT 11.2 SECONDS (9.5-12.5) 09/05/21 19:44 INR 0.97 09/05/21 19:44 Sodium 141 mmol/L (136-145) 09/07/21 04:38 Potassium 4.3 mmol/L (3.5-5.1) 09/07/21 04:38 BUN 20 mg/dL (7-18) H 09/07/21 04:38 Creatinine 1.39 mg/dL (0.55-1.3) H 09/07/21 04:38 Glucose 118 mg/dL (74-106) H 09/07/21 04:38 Uric Acid 6.6 mg/dL (3.5-7.2) 09/06/21 10:40 Magnesium 2.5 mg/dL (1.8-2.4) H 09/05/21 19:44 Total Bilirubin 0.3 mg/dL (0.2-1.0) 09/07/21 04:38 AST 10 U/L (15-37) L 09/07/21 04:38 ALT 13 U/L (12-78) 09/07/21 04:38 Alkaline Phosphatase 60 U/L (45-117) 09/07/21 04:38 Home Medications: Clopidogrel Bisulfate [Plavix*] 75 mg PO DAILY 05/16/14 Escitalopram [Lexapro] 10 mg PO DAILY 05/16/14 Divalproex Sodium [Depakote] 500 mg PO BID #60 tablet. 05/17/14 Insulin Degludec [Tresiba Flextouch U-200] 20 unit SQ DAILY 02/24/19 Metoprolol Mayberry/Hydrochlorothiaz [Metoprolol ER-Hctz 25-12.5 mg] 25 each PO DAILY 02/24/19 Gabapentin 300 mg PO BID 05/05/19 Metformin HCl 750 mg PO BID 05/05/19 Aspirin [Aspirin EC 81 MG] 81 mg PO DAILY 09/06/21 Rosuvastatin [Crestor*] 20 mg PO BID 09/06/21 lisinopriL [Prinivil*] 20 mg PO DAILY 09/06/21 Pantoprazole Sodium [Protonix] 40 mg PO DAILY 30 Days #30 tablet. 09/07/21 New Medications: Pantoprazole Sodium [Protonix] 40 mg PO DAILY 30 Days #30 tablet. Physician Discharge Instructions: Patient was found to have an upper GI bleed secondary to gastritis/esophagitis. He was found to be anemic, which improved and was stable after 2 units of PRBCs and protonix. He underwent EGD by Dr. Forbes. To continue protonix on discharge. Continue protonix. Restart aspirin in ~4 days. He was also found to have acute kidney injury, which improved to near baseline levels with IV fluid hydration. Nephrology was consulted, and patient instructed to follow up with them in the office in ~1-2 weeks. He is to hold his HCTZ His glucose was noted to be low on admission, secondary to hypoglycemic medication and not eating. On discharge, recommend continuing with metformin and starting at 10units of Tresiba. To slowly increase Tresiba over the next few days depending on glucose levels. Increasing by a few units if fasting glucose remains > 200 He will record his glucose readings and follow up with PCP within 1 week. Hold other diabetes medications for now. Discussed glucose levels will increase as he continues to improve and eat more. Diet: ADA (soft) Activity: Ad annalee Followup: Yehuda Fournier MD [ACTIVE - CAN ADMIT] - (call to schedule appointment) Oren Orellana MD [Primary Care Provider] - (Manpreet to schedule appointment) Jose Forbes MD [ASSOCIATE-ACTIVE - CAN ADMIT] - (Call to schedule appointment) Time spent managing pt's care (in minutes): 45
== END 2021-09-07 12:15 | disposition home or self-care (01) | DRG 368 ==
LOC: ER 18:39 → ERHOLD 23:31 → 2ND 09-06 00:43
PROVIDERS: ADMIT Hospitalist; ATTEND Hospitalist
PROC: 30233N1 Transfusion of Nonautologous Red Blood Cells into Peripheral Vein, Percutaneous Approach (ICD-10-PCS; 2021-09-05)
PROC: 0DB38ZX Excision of Lower Esophagus, Via Natural or Artificial Opening Endoscopic, Diagnostic (ICD-10-PCS; principal; 2021-09-06 12:30)
DX: K20.91 Esophagitis, unspecified with bleeding (principal); K29.71 Gastritis, unspecified, with bleeding; N17.9 Acute kidney failure, unspecified; D62 Acute posthemorrhagic anemia; K22.70 Barrett's esophagus without dysplasia; I10 Essential (primary) hypertension; I25.10 Atherosclerotic heart disease of native coronary artery without angina pectoris; K29.80 Duodenitis without bleeding; E78.5 Hyperlipidemia, unspecified; K21.9 Gastro-esophageal reflux disease without esophagitis; I12.9 Hypertensive chronic kidney disease with stage 1 through stage 4 chronic kidney disease, or unspecified chronic kidney disease; N18.30 Chronic kidney disease, stage 3 unspecified; E11.22 Type 2 diabetes mellitus with diabetic chronic kidney disease; E11.649 Type 2 diabetes mellitus with hypoglycemia without coma; E11.40 Type 2 diabetes mellitus with diabetic neuropathy, unspecified; F17.200 Nicotine dependence, unspecified, uncomplicated; I25.2 Old myocardial infarction; Z79.84 Long term (current) use of oral hypoglycemic drugs; Z79.4 Long term (current) use of insulin; Z79.82 Long term (current) use of aspirin; Z79.899 Other long term (current) drug therapy; Z86.73 Personal history of transient ischemic attack (TIA), and cerebral infarction without residual deficits; Z79.02 Long term (current) use of antithrombotics/antiplatelets; Z85.038 Personal history of other malignant neoplasm of large intestine; Z95.5 Presence of coronary angioplasty implant and graft; Z20.822 Contact with and (suspected) exposure to COVID-19
CPT/HCPCS: 36415; 36430; 70450; 71045; 74176; 76770; 80048; 80053; 80076; 81003; 81015; 82550; 82947; 83735; 83880; 84439; 84443; 84484; 84550; 85014; 85018; 85025; 85610; 86850; 86900; 86901; 88305; 88312; 88313; 93005; 96374; 99285; C9113; J0360; J2704; J7030; J7050; J7799; P9016; U0003

== ENCOUNTER 2023-03-02 17:23 | Emergency (ER) | payer MEDICARE ==
--- OUTSIDE RECORDS SUMMARY | 2023-03-02 17:28 | XMS REPORT | Continuity of Care Document ---
:1955 Author Organization [facility] t Address [address] [place] [address] [place] [id number] Care Team Providers Name Role Phone Bev Salazar Attending Clinician Marie_aRin Attending Clinician Unavailable Joseph Mckeon Attending Clinician Martínez Cortés Attending Clinician Unavailable Binhhiabdulaziz_Rain Admitting Clinician Unavailable KNOW, DOES_NOT Admitting Clinician Unavailable Payers Payer Name Policy Type Policy Number Effective Date Expiration Date [facility] [id number] 2021 (MEDICARE 00:00:00 REPLACEMENT HMO) Problems Condition Condition Condition Status Onset Resolution Last Treating Co mments Source Name Details Category Date Date Treatment Clinician Date Malignant Malignant Problem Active 2021-11-11 Memoria tumor of tumor of 02:53:23 l colon colon [place] (disorder) (disorder) Active Problem 11/11/2021 [facility] Memory Memory Problem Active 2021-11-11 Stan ana impairment impairment 02:53:23 l (finding) (finding) Herm tavon Active Problem 11/11/2021 [facility] Migraine Migraine Problem Active 2021-11-11 Memoria (disorder) (disorder) 02:53:23 l Active [place] Problem 11/11/2021 [facility] Myocardial Myocardia Problem Active 2021-11-11 Memoria infarction l 02:53:23 l (disorder) infarction He rmann (disorder) Active Problem 11/11/2021 [facility] Transient Transient Problem Active 2021-11-11 Memoria ischemic ischemic 02:53:23 l attack attack Ash[place]osh (disorder) (disorder) Active Problem 11/11/2021 [facility] Cerebrovas Cerebrova Problem Active 2021-11-11 Memoria cular scular 02:53:23 l accident accident Marcelino n (disorder) (disorder) Active Problem 11/11/2021 [facility] Neck pain Neck Problem Resolve 2021-11-11 M emoria (finding) pain d 02:53:23 l (finding) [place] Resolved Problem 11/11/2021 [facility] Cervical Cervical Problem Active 2021-11-11 Memoria spondylosi spondylosi 02:53:23 l s s [place] (disorder) (disorder) Active Problem 11/11/2021 [facility] Diabetes Diabetes Problem Active 2021-11-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 2 [place] (disorder) (disorder) Active Problem 11/11/2021 [facility] Diabetic Diabetic Problem Active 2021-11-11 Memoria foot ulcer foot ulcer 02:53:23 l (disorder) (disorder) He rmann Active Problem 11/11/2021 [facility] Diabetic Diabetic Problem Active 2021-11-11 Memoria neuropathy neuropathy 02:53:23 l (disorder) (disorder) He rmann Active Problem 11/11/2021 [facility] Hypertensi Hypertens Problem Active 2021-11-11 Memoria ve oniel 02:53:23 l disorder, disorder, Herm tavon systemic systemic arterial arterial (disorder) (disorder) Active Problem 11/11/2021 [facility] Hyperlipid Hyperlipi Problem Active 2021-11-11 Memoria emia demia 02:53:23 l (disorder) (disorder) He rmann Active Problem 11/11/2021 [facility] Hyperthyro Hyperthyr Problem Active 2021-11-11 Memoria idism oidism 02:53:23 l (disorder) (disorder) He rmann Active Problem 11/11/2021 [facility] Lumbar Lumbar Problem Active 2021-11-11 Mem oria spondylosi spondylosi 02:53:23 l s s [place] (disorder) (disorder) Active Problem 11/11/2021 [facility] Allergies, Adverse Reactions, Alerts Allergy Allergy Status Severity Reaction(s) Onset Inactive Treating Comm ents Source Name Type Date Date Clinician No Known DA Active U 2021-0 [facility]05 [facility] 00:00: d 00 [facility] No Known DA Active U [facility]ie 03-05 [facility] s 00:00: d 00 [facility] No Known No Known Active Memori a Medicati Medicati l on on Ash[place]osh Allergie Allergie s s Social History Social Habit Start Date Stop Date Quantity Comments Source Social History 2020-03-16 2020-03-16 [facility] H ermann 15:59:18 15:59:18 Medications Ordered Filled Start Stop Current Ordering Indication Dosage Frequency Signature Comments Components Source Medication Medication Date Date Medication? Clinician (SIG) Name Name escitalopra Yes = 1 tab, Me moria m 10 mg 8-20 PO, Daily, l oral tablet 14:59: # 30 tab, H ermann 19 5 Refill(s), Pharmacy: [place] [id number] escitalopra Yes = 1 tab, Me moria m 10 mg 8-20 PO, Daily, l oral tablet 14:59: # 30 tab, H ermann 19 5 Refill(s), Pharmacy: [facility] Divalproex Yes See Memoria Sodium 500 8-20 Instructio l MG Enteric 14:59: ns, TAKE Her russ Coated 17 ONE TABLET Tablet BY MOUTH TWICE DAILY, # 60 tab, 4 Refill(s), Pharmacy: [facility] Divalproex Yes See Memoria Sodium 500 8-20 Instructio l MG Enteric 14:59: ns, TAKE Her russ Coated 17 ONE TABLET Tablet BY MOUTH TWICE DAILY, # 60 tab, 4 Refill(s), Pharmacy: [place] [id number] clopidogrel Yes = 1 tab, Me moria 75 mg oral 8-20 PO, Daily, l tablet 14:59: # 30 tab, Marcelino n 14 5 Refill(s), Pharmacy: [facility] clopidogrel Yes = 1 tab, Me moria 75 mg oral 8-20 PO, Daily, l tablet 14:59: # 30 tab, Marcelino n 14 5 Refill(s), Pharmacy: [place] [id number] 3 ML 2017-07 Yes 20 unit, Memoria insulin 2-27 SUB-Q, l degludec 20:08: Daily, 0 Suzi nn 100 UNT/ML 00 Refill(s) Pen Injector [Tresiba] 3 ML 2017-07 Yes 20 unit, Memoria insulin 2-27 SUB-Q, l degludec 20:08: Daily, 0 Suzi nn 100 UNT/ML 00 Refill(s) Pen Injector [Tresiba] gabapentin 2017-07 Yes 300 mg = 1 M emoria 300 MG Oral 2-27 cap, PO, l Capsule 19:41: BID, # 60 Suzi nn 45 cap, 5 Refill(s), Pharmacy: [id number] gabapentin 2017-07 Yes 300 mg = 1 M emoria 300 MG Oral 2-27 cap, PO, l Capsule 19:41: BID, # 60 Suzi nn 45 cap, 5 Refill(s), Pharmacy: [id number] Vital Signs Vital Name Observation Time Observation Value Comments Source Systolic (mm Hg) 2021-04-10 14:56:00 Stan rial [place] Diastolic (mm Hg) 2021-04-10 14:56:00 Mem orial [place] Heart Rate 2021-04-10 14:56:00 [facility] [place] Respitory Rate 2021-04-10 14:56:00 Memori al [place] Height 2021-04-10 14:56:00 160.02 cm [facility] [place] Weight 2021-04-10 14:56:00 [facility] [place] BMI Calculated 2021-04-10 14:56:00 Memori al [place] Systolic (mm Hg) 2019-04-26 14:10:00 Stan rial [place] Diastolic (mm Hg) 2019-04-26 14:10:00 Mem orial [place] Heart Rate 2019-04-26 14:10:00 [facility] [place] Respitory Rate 2019-04-26 14:10:00 Memori al [place] Height 2019-04-26 14:10:00 162.56 cm [facility] [place] Weight 2019-04-26 14:10:00 [facility] [place] BMI Calculated 2019-04-26 14:10:00 Memori al [place] Systolic (mm Hg) 2019-02-22 14:39:00 Stan rial [place] Diastolic (mm Hg) 2019-02-22 14:39:00 Mem orial [place] Heart Rate 2019-02-22 14:39:00 [facility] [place] Respitory Rate 2019-02-22 14:39:00 Memori al [place] Height 2019-02-22 14:39:00 162.56 cm [facility] [place] Weight 2019-02-22 14:39:00 [facility] [place] BMI Calculated 2019-02-22 14:39:00 Memori al [place] Height 2018-10-28 18:18:00 162.56 cm [facility] [place] Weight 2018-10-28 18:18:00 [facility] [place] BMI Calculated 2018-10-28 18:18:00 Memori al [place] Respitory Rate 2018-10-28 18:18:00 Memori al [place] Heart Rate 2018-10-28 18:18:00 [facility] [place] Systolic (mm Hg) 2018-10-28 18:18:00 Stan rial [place] Diastolic (mm Hg) 2018-10-28 18:18:00 Mem orial [place] Weight 2018-07-01 19:18:00 [facility] [place] BMI Calculated 2018-07-01 19:18:00 Memori al [place] Height 2018-07-01 19:18:00 165.1 cm [facility] [place] Heart Rate 2018-07-01 19:18:00 [facility] [place] Systolic (mm Hg) 2018-07-01 19:18:00 Stan rial [place] Diastolic (mm Hg) 2018-07-01 19:18:00 Mem orial [place] Respitory Rate 2018-07-01 19:18:00 Memori al [place] Procedures This patient has no known procedures. 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 [id number]. C [id number] [facility] 21:30:00 22:00:00 d CAV [place] [id number] Medical Follow Up [id number] ([place] [id number] MOS use) 2022-08-14 2022-08-14 CAV Bev 2.16.840. 2.16.840.1. CLAC [id number] [facility] 16:30:00 17:30:00 [place] [id number] Medical [id number] 2022-08-11 2022-08-11 Outpatient [place]_L DMG DM [id number] [facility] 00:00:00 00:00:00 [id number] Medica l Group 2022-08-11 2022-08-11 Outpatient [place]_L DMG DMG [id number] [facility] 00:00:00 00:00:00 [id number] Medica l Group 2022-08-11 2022-08-11 Outpatient [place]_L DMG [facility] [id number] [facility] 00:00:00 00:00:00 [id number] Medica l Group 2022-01-17 2022-01-[address] [facility] - [facility] 03:22:00 03:22:00 [id number] Medica l Group 2021-11-07 2021-11-09 Outside nullFlavo MNA [id number] Memoria 13:46:38 04:59:59 Medical r Neurology 03 l Records Cisco Boykin 2021-11-07 2021-11-09 Outside nullFlavo MNA [id number] Memoria 13:46:38 04:59:59 Medical r Neurology 03 l Records Cisco Boykin 2021-11-07 2021-11-08 Outpatient MHMISCHER MHMISCHER [id number] 08:46:38 23:59:59 03 2021-10-09 2021-10-09 Outpatient MHIE MHIE [id number] Memoria 09:45:00 09:45:00 19 l [place] 2021-10-09 2021-10-09 Outpatient MHIE MHIE [id number] Memoria 09:45:00 09:45:00 19 l [place] 2021-09-03 2021-09-03 Ambulatory nullFlavo MNA [id number] Memoria 21:30:00 21:30:00 Pre-Reg r Neurology 19 l Cisco Ashutosh 2021-09-03 2021-09-03 Outpatient MARGARITA MckeonMISCHER MHMISCHER [id number] 15:30:00 15:30:00 Joseph Garcia 2021-07-17 2021-07-[address] [facility] [id number] [facility] 02:00:00 02:00:00 Medica l Group 2021-07-11 2021-07-11 Outpatient DMG [id number] [id number] [facility] 08:01:00 08:01:00 Medica l Group 2021-04-10 2021-04-11 Outpatient nullFlavo MNA [id number] Memoria 14:45:00 04:59:59 r Neurology 18 l Cisco Longoann 2021-04-10 2021-04-11 Outpatient nullFlavo MNA [id number] Memoria 14:45:00 04:59:59 r Neurology 18 l Cisco Longoann 2021-04-10 2021-04-10 [id number] 09:45:00 23:59:59 Joseph Sneha Garcia 2021-04-10 2021-04-10 Outpatient MHIE IE [id number] Memoria 09:45:00 09:45:00 18 rain Boykin 2021-03-06 2021-03-06 Outpatient TREV Cortés [facility] [id number] [facility] 06:14:00 06:14:00 Martínez 74 [facility] 2020-11-08 2020-11-10 Outside nullFlavo MNA [id number] Memoria 18:51:02 04:59:59 Medical r Neurology 02 l Records Cisco Longoann 2020-11-08 2020-11-10 Outside nullFlavo MNA [id number] Memoria 18:51:02 04:59:59 Medical r Neurology 02 l Records Cisco Ashutosh 2020-11-08 2020-11-09 [facility] [id number] 13:51:02 23:59:59 02 2020-09-13 2020-09-13 Ambulatory nullFlavo MNA [id number] Memoria 16:30:00 16:30:00 Pre-Reg r Neurology 17 l Cisco Ashutosh 2020-09-13 2020-09-13 Ambulatory nullFlavo MNA [id number] Memoria 16:30:00 16:30:00 Pre-Reg r Neurology 17 l Cisco Ashutosh 2020-09-13 2020-09-13 Outpatient MHIE IE [id number] Memoria 10:30:00 10:30:00 17 l [place] 2020-09-13 2020-09-13 [facility] [id number] 10:30:00 10:30:00 Joseph 17 Jose 2020-03-16 2020-03-16 Outpatient MHIE MHIE [id number] Memoria 10:30:00 10:30:00 16 rain Boykin 2020-03-16 2020-03-16 Outpatient MHIE IE [id number] Memoria 10:30:00 10:30:00 16 rain Boykin 2019-08-30 2019-08-30 Ambulatory nullFlavo MNA [id number] Memoria 15:00:00 15:00:00 Pre-Reg r Neurology 15 rain [place] 2019-08-30 2019-08-30 Ambulatory nullFlavo MNA [id number] Memoria 15:00:00 15:00:00 Pre-Reg r Neurology 15 rain [place] 2019-08-30 2019-08-30 Outpatient MHIE IE [id number] Memoria 09:00:00 09:00:00 15 rain [place] 2019-08-30 2019-08-30 [id number] 09:00:00 09:00:00 Joseph 15 Jose 2019-04-26 2019-04-27 Outpatient nullFlavo MNA [id number] Memoria 14:00:00 04:59:59 r Neurology 14 rain Longoann 2019-04-26 2019-04-27 Outpatient nullFlavo MNA [id number] Memoria 14:00:00 04:59:59 r Neurology 14 rain [place] Ashutosh 2019-04-26 2019-04-26 [facility] Mike[facility] [id number] 09:00:00 23:59:59 Joseph 14 Jose 2019-04-26 2019-04-26 Outpatient MHIE IE [id number] Memoria 09:00:00 09:00:00 14 rain [place] 2019-02-22 2019-02-23 Outpatient nullFlavo MNA [id number] Memoria 14:30:00 04:59:59 r Neurology 13 rain [place] Ashutosh 2019-02-22 2019-02-23 Outpatient nullFlavo MNA [id number] Memoria 14:30:00 04:59:59 r Neurology 13 rain Boy[place] 2019-02-22 2019-02-22 Outpatient Mike, MHMISCHER MHMISCHER [id number] 09:30:00 23:59:59 Joseph 13 Jose 2019-02-22 2019-02-22 Outpatient MHIE MHIE [id number] Memoria 09:30:00 09:30:00 13 rain Ash[place]osh 2018-10-28 2018-10-29 Outpatient nullFlavo MNA [id number] Memoria 18:00:00 04:59:59 r Neurology 12 rain Peck Ash[place]osh 2018-10-28 2018-10-29 Outpatient nullFlavo MNA [id number] Memoria 18:00:00 04:59:59 r Neurology 12 rain Peck [place] 2018-10-28 2018-10-28 Outpatient Mike, MHMISCHER MHMISCHER [id number] 13:00:00 23:59:59 Joseph 12 Jose 2018-10-28 2018-10-28 Outpatient Mike, MHMISCHER MHMISCHER [id number] 13:00:00 23:59:59 Joseph 12 Jose 2018-10-28 2018-10-28 Outpatient Mike, MHMISCHER MHMISCHER [id number] 13:00:00 23:59:59 Joseph 12 Jose 2018-10-28 2018-10-28 Outpatient Mike, MHMISCHER MHMISCHER [id number] 13:00:00 23:59:59 Joseph 12 Jose 2018-10-28 2018-10-28 Outpatient MHIE MHIE [id number] Memoria 13:00:00 13:00:00 12 rain [place] 2018-09-30 2018-09-30 Outpatient MHIE MHIE [id number] Memoria 13:00:00 13:00:00 11 rain Ash[place]osh 2018-09-30 2018-09-30 Outpatient MHIE MHIE [id number] Memoria 13:00:00 13:00:00 11 rain [place] 2018-07-01 2018-07-02 Outpatient nullFlavo MNA [id number] Memoria 19:00:00 05:59:59 r Neurology 10 rain [place] Ashutosh 2018-07-01 2018-07-02 Outpatient nullFlavo MNA [id number] Memoria 19:00:00 05:59:59 r Neurology 10 rain [place] Ashutosh 2018-07-01 2018-07-01 [id number] 13:00:00 23:59:59 Joseph Annie Garcia 2018-07-01 2018-07-01 Outpatient MHIE MHIE [id number] Memoria 13:00:00 13:00:00 10 rain [place] 2018-04-01 2018-04-01 Outpatient MHIE MHIE [id number] Memoria 13:45:00 13:45:00 09 rain [place] 2018-04-01 2018-04-01 Outpatient MHIE MHIE [id number] Memoria 13:45:00 13:45:00 09 rain Ash[place]osh 2018-03-10 2018-03-10 Outpatient MHIE MHIE [id number] Memoria 08:45:00 08:45:00 07 rain Ash[place]osh 2018-03-10 2018-03-10 Outpatient MHIE MHIE [id number] Memoria 08:45:00 08:45:00 07 rain [place] 2018-02-18 2018-02-18 Outpatient MHIE MHIE [id number] Memoria 14:45:00 14:45:00 08 rain [place] 2018-02-18 2018-02-18 Outpatient MHIE MHIE [id number] Memoria 14:45:00 14:45:00 08 rain [place] 2018-01-05 2018-01-05 Outpatient MHIE MHIE [id number] Memoria 08:45:00 08:45:00 06 rain Ash[place]osh 2018-01-05 2018-01-05 Outpatient MHIE MHIE [id number] Memoria 08:45:00 08:45:00 06 rain [place]osh 2017-12-09 2017-12-09 Outpatient MHIE MHIE [id number] Memoria 09:15:00 09:15:00 02 rain Ash[place]osh 2017-12-09 2017-12-09 Outpatient MHIE MHIE [id number] Memoria 09:15:00 09:15:00 02 rain [place] 2017-11-24 2017-11-24 Outpatient MHIE MHIE [id number] Memoria 08:30:00 08:30:00 05 rain [place] 2017-11-24 2017-11-24 Outpatient BLAINE VALLADARES [id number] Memoria 08:30:00 08:30:00 05 rain [place] 2017-11-11 2017-11-11 Outpatient BLAINE VALLADARES [id number] Memoria 08:45:00 08:45:00 04 rain [place] 2017-11-11 2017-11-11 Outpatient BLAINE VALLADARES [id number] Memoria 08:45:00 08:45:00 04 rain [place] 2017-09-30 2017-09-30 Outpatient BLAINE VALLADARES [id number] Memoria 09:00:00 09:00:00 03 rain [place] 2017-09-30 2017-09-30 Outpatient BLAINE VALLADARES [id number] Memoria 09:00:00 09:00:00 03 rain [place] 2017-09-08 2017-09-08 Outpatient BLAINE VALLADARES [id number] Memoria 10:15:00 10:15:00 01 rain [place] 2017-09-08 2017-09-08 Outpatient BLAINE VALLADARES [id number] Memoria 10:15:00 10:15:00 01 rain [place] Results Test Description Test Time Test Comments [...] 9.0 MG/DL 8.5-10.1 N COVID 19 INHOUSE [id number] 15:46:00 Test Item Value Reference Range Interpretation Comments COVID 19 INHOUSE AG NEGATIVE Negative Per manu facturer, (test code = negative result s should [id number]) be treated aspr esumptive and, if inconsi stent with clinical signs andsymptoms or necessary for patient man agement, should betested with an alternative mol ecular assay. Negative resultsdo not preclude SA RS-CoV-2 infection and s hould not be usedas the s ole basis for patient man agement decisions. Nega tive results should be considered in t he context of apatient's r ecent exposures, hist ory, presence of cli nicalsigns and symptoms co nsistent with COVID-19. THROMBOPLASTIN TIME [id number] 15:39:00 Test Item Value Reference Range Interpretation Comments THROMBOPLASTIN TIME PARTIAL 30.4 SECONDS 26-35 N (test code = PTT) CBC W/AUTO [id number] 15:29:00 Test Item Value Reference Range Interpretation [...] (test code NO DIFF/SCN CRITERIA = MDIFF) Notes Date/Time Note Provider Source 2021-03-06 09:27:00-00:00 [id number] [place] [address] PATIENT NAME: JOEY MAIN ADMIT DATE: 03/06/21 ACCOUNT NO: [id number] ROOM NO: AGE: 65 REPORT TYPE: CARDIAC CATHETERIZATION REPORT SEX: M ADMITTING PHYSICIAN: ATTENDING PHYSICIAN: Martínez Cortés MD PROCEDURE DATE: 03/06/2021 This is a dictation for coronary angiogram, left heart catheterization, and peripheral angiogram report. INDICATION: 1. R07.89 and R06.02. 2. Claudication in bilateral lower extremities w ith prior history of endovascular intervention. 3. Abnormal arterial duplex in both legs PROCEDURES PERFORMED: 1. Left heart catheterization. 2. Coronary angiogram. 3. Placement of catheter in abdominal aorta and performance of abdominal aortogram. 4. Third order catheter placement in left SFA an d performance of left lower extremity angiogram. 5. Second order catheter placement in right comm on femoral artery and performance of right lower extremity angiogram. 6. Total moderate sedation provided for 30 minut es by the same physician performing procedure in presence of an independe nt trained observer to assist in the monitoring of the patient's level of cons ciousness and physiological status. Access obtained right common femoral artery. Dev ice used for closure, Perclose ProGlide. LVEDP is 22. LVEF by LV gram 60%. No gradient on catheter pullback across the aortic valve. Selective LCA and RCA angiograms were performed with 5-Cymro JL4 and JR4 diagnostic catheters respectively. JR4 d iagnostic catheter was placed over J-wire in LV and LVEDP was measured. LV gra mas performed. Catheter was pulled back and there was no gradient across the aortic valve. After that, 5- Cymro Omniflush catheter was p arked in abdominal aorta and abdominal aortogram was performed. After that, the Omniflu sh was parked in left common femoral artery followed by left SFA and left low er extremity selective angiogram was performed. After that, the cathete r was removed and then right lower extremity selective angiogram was obtained by injection through right groin sheath. After that, 5- Cymro sheath was r emoved and Perclose ProGlide deployed without complications. PATIENT NAME: JOEY MAIN [id number] CORONARY ANGIOGRAM REPORT: The left main has mil d distal CAD.Left Main splits into LAD, circumflex, and a ramus interme dius. Proximal LAD has 30% to 50% stenosis. Mid LAD murdock s 30% stenosis. It gives rise to a small-sized diagonal 1 without obstruction. D2 is a small-sized vessel without obstruction. Distal LAD is a medium-sized type 3 LAD that runs in th e posterior interventricular groove without any obstruction. Ramus intermedius is a small-sized branching ves ximena without obstruction. Proximal LCX has mild CAD, gives rise to a small - size obtuse marginal 1 without obstruction. LPL1 is a small-size vessel with mild CAD. LPL2 is a small-size vessel with mild CAD. Distal circumfl ex is small in size without obstruction. Proximal RCA has no obstruction. Mid RCA has 30% stenosis. Distal RCA has 30% stenosis. RPDA is a small-size vessel with mild CAD. AV continuation and right posterolateral is a medium-size vessel wit h mild CAD. PERIPHERAL ANGIOGRAM: Abdominal aorta has no obstruction. It splits in to bilateral common iliac arteries without any obstruction. Bilateral inte rnal iliac arteries have mild PAD, bilateral external iliac arteries have no o bstruction. Bilateral common femoral arteries have no obstruction. Bilateral SFA has 30% stenosis in the proximal portion and also near the adductor canal. The profunda femoris artery ostium on the right side has 30% stenosis . The left profunda femoris artery has no obstruction. Bilateral popliteal a rteries have no obstruction. Bilateral anterior tibial artery, TP trunk, nayeli lola artery, and posterior tibial artery has mild PAD. There is 3-vessel ru noff in both lower extremities with sluggish flow. CONCLUSION: 1. Nonobstructive coronary artery disease as zachery cribed above. 2. Elevated LVEDP and preserved LVEF by LV gram 3. Mild peripheral arterial disease in bilateral infrainguinal arteries. RECOMMENDATIONS: -Medical management. -Optimize blood pressure and consider adding diu retics as an outpatient. Dictated By: Martínez Cortés MD WT: CATH:L.CPS/[email or web address]/JOHNNIE Conf#: [id number]/DID#: [id number] Authenticated and Edited by Martínez Cortés MD On 03/07/21 9:35:25 AM PATIENT NAME: JOEY MAIN 76 Electronically Signed by Martínez Cortés MD on at 0938 PATIENT NAME: JOSE DAVIDJOEY 76
[2023-03-02] MEDS ORDERED: ASPIRIN 81 MG CHEWABLE TABLET ONE (18:00)
[2023-03-02 18:27] LABS: Hematocrit 36.3 % (39.6-49.0); MCV 86.7 fL (80-100); MPV 10.7 fL (7.6-11.3); Platelets 119 thou/uL (152-406); RBC Red Blood Cell Count 4.19 M/uL (4.33-5.43)
[2023-03-02 18:33] LABS: Magnesium 2.5 mg/dL (1.6-2.4); Potassium 4.8 mEq/L (3.5-5.1); Troponin High Sensitivity 15.3 pg/mL (<58.9)
[2023-03-02 18:45] LABS: Protime INR 0.95
--- NOTE | 2023-03-02 19:32 | RAD REPORT ---
EXAM DESCRIPTION: RAD - Chest Single View - 03/02/2023 7:27 pm CLINICAL HISTORY: CHEST PAIN Chest pain. COMPARISON: Chest Single View dated 04/10/2022; Chest Single View dated 09/05/2021; Chest Single View d ated 08/19/2019; Chest Single View dated 05/07/2019 FINDINGS: Portable technique limits examination quality. The lungs are grossly clear. The heart is normal in size. No displaced fractures. IMPRESSION: No acute intrathoracic process suspected.
--- NOTE | 2023-03-02 22:20 | ER ---
Nurse's Notes [facility] Name: Barrington Fletcher Age: 67 yrs Sex: Male : 1955 Arrival Date: 03/02/2023 Time: 17:23 Bed DIS3 Private MD: Diagnosis: Chest pain, unspecified Presentation: 03/02 17:31 Chief complaint: Patient states: chest pain started this morning at 0800, pain radiates iw from left side of back and into chest , previous IA X 2. Coronavirus screen: At this time, the client does not indicate any symptoms associated with coronavirus-19. Ebola Screen: Patient negative for fever greater than or equal to 101.5 degrees Fahrenheit, and additional compatible Ebola Virus Disease symptoms Patient denies exposure to infectious person. Patient denies travel to an Ebola-affected area in the 21 days before illness onset. No symptoms or risks identified at this time. Initial Sepsis Screen: Does the patient meet any 2 criteria? No. Patient's initial sepsis screen is negative. Does the patient have a suspected source of infection? No. Patient's initial sepsis screen is negative. Risk Assessment: Do you want to hurt yourself or someone else? Patient reports no desire to harm self or others. Onset of symptoms was March 02, 2023. 17:31 Method Of Arrival: Ambulatory iw 17:31 Acuity: EVIE 2 iw Screenin:27 [facility] ED Fall Risk Assessment (Adult) History of falling in the last 3 months, kl including since admission No falls in past 3 months (0 pts) Confusion or Disorientation No (0 pts) Intoxicated or Sedated No (0 pts) Impaired Gait No (0 pts) Mobility Assist Device Used No (0 pt) Altered Elimination No (0 pt) Score/Fall Risk Level. Abuse screen: Denies threats or abuse. Nutritional screening: No deficits noted. Tuberculosis screening: No symptoms or risk factors identified. Assessment: 22:26 General: Appears in no apparent distress. Behavior is calm, cooperative. Pain: Denies kl pain. Neuro: No deficits noted. Cardiovascular: Reports chest pain, resolved. Vital Signs: 17:31 BP 153 / 83; Pulse 61; Resp 16; Temp 98.2; Pulse Ox 98% on R/A; iw ED Course: 17:29 Patient arrived in ED. [facility] 17:32 Triage completed. iw 17:37 [facility]ien Arango [facility]C [facility] kb 17:37 Dayo Leyva MD is Attending Physician. kb 19:28 XRAY Chest (1 view) In Process Unspecified. EDMS 22:27 Patient has correct armband on for positive identification. Provided Education on:. kl 22:27 No provider procedures requiring assistance completed. Patient did not have IV access kl during this emergency room visit. Patient maintains SpO2 saturation greater than 95% on room air. Administered Medications: 17:51 Drug: Aspirin PO Chewable Tablet 324 mg Route: PO; mb9 Outcome: 22:20 Discharge ordered by . kb 22:27 Discharged to home ambulatory. kl 22:27 Condition: stable 22:27 Discharge instructions given to patient, Instructed on discharge instructions, follow up and referral plans. Demonstrated understanding of instructions, follow-up care. 22:28 Patient left the ED. kl Signatures: Dispatcher [employer] EDRI Lien Arango FNP-C FNP-Ckb Lewis, Kimberly, RN RN kl Williams, Irene, RN RN iw Breneman, Mary Beth RN RN mb9 Elena Harding [facility]
--- NOTE | 2023-03-02 22:20 | EDPHYS ---
Physician Documentation [facility] Name: Barrington Fletcher Age: 67 yrs Sex: Male : 1955 Arrival Date: 03/02/2023 Time: 17:23 Bed DIS3 Private MD: ED Physician Dayo Leyva HPI: 03/03 01:09 This 67 yrs old Male presents to ER via Ambulatory with complaints of Chest kb Pain. 01:10 The patient or guardian reports chest pain that is located primarily in the anterior kb chest wall, left. Onset: this morning. The pain does not radiate. Associated signs and symptoms: The patient has no apparent associated signs or symptoms. The chest pain is described as dull. Duration: The patient or guardian reports a single episode. Modifying factors: The symptoms are alleviated by nothing. the symptoms are aggravated by nothing. Severity of pain: At its worst the pain was mild moderate in the emergency department the pain is unchanged. The patient has not experienced similar symptoms in the past. The patient has not recently seen a physician. Patient reports left lung pain that started at 8:00 this morning. States he went to a clinic, was seen by a BINA and was sent to the ER for further evaluation.. ROS: 01:10 Constitutional: Negative for fever, chills, and weight loss. kb 01:10 Cardiovascular: Positive for chest pain. 01:10 All other systems are negative. Exam: 01:10 Constitutional: This is a well developed, well nourished patient who is awake, alert, kb and in no acute distress. Head/Face: Normocephalic, atraumatic. ENT: Moist Mucous membranes Cardiovascular: Regular rate and rhythm with a normal S1 and S2. No gallops, murmurs, or rubs. No pulse deficits. Respiratory: Respirations even and unlabored. No increased work of breathing. Talking in full sentences Abdomen/GI: Soft, non-tender. No distention Skin: Warm, dry with normal turgor. Normal color. MS/ Extremity: Pulses equal, no cyanosis. Neurovascular intact. Full, normal range of motion. Neuro: Awake and alert, GCS 15, oriented to person, place, time, and situation. Moves all extremities. Normal gait. Vital Signs: 03/02 17:31 BP 153 / 83; Pulse 61; Resp 16; Temp 98.2; Pulse Ox 98% on R/A; iw MDM: 17:37 Patient medically screened. 03/03 01:10 Differential diagnosis: abnormal EKG, acute myocardial infarction, coronary artery kb disease chest wall pain, pneumonia, pulmonary embolus. Data reviewed: vital signs, nurses notes. Consideration of Admission/Observation Escalation of care including admission/observation considered. Admission considered for chest pain but serial troponins negative, patient feeling better and wants to go home. Heart score 4. Counseling: I had a detailed discussion with the patient and/or guardian regarding the historical points, exam findings, and any diagnostic results supporting the discharge/admit diagnosis, lab results, radiology results, the need for outpatient follow up, a family practitioner, to return to the emergency department if symptoms worsen or persist or if there are any questions or concerns that arise at home. 01:12 Test considered but Not performed: CT: CT chest for PE considered but D-dimer negative, kb respirations even unlabored, oxygen saturation 98% on room air. 03/02 18:12 Order name: Basic Metabolic Panel; Complete Time: 18:45 EDMS 03/02 18:12 Order name: Troponin High Sensitivity; Complete Time: 18:45 EDMS 03/02 18:12 Order name: NT PRO-BNP; Complete Time: 18:45 EDMS 03/02 18:12 Order name: Magnesium; Complete Time: 18:45 EDMS 03/02 18:12 Order name: CBC with Automated Diff; Complete Time: 18:45 EDMS 03/02 18:12 Order name: Protime (+INR); Complete Time: 18:46 EDCA 03/02 18:27 Order name: D-Dimer; Complete Time: 19:18 kb 03/02 20:15 Order name: Troponin High Sensitivity; Complete Time: 22:19 kb 03/02 17:37 Order name: XRAY Chest (1 view); Complete Time: 19:33 kb 03/02 17:37 Order name: EKG; Complete Time: 18:11 kb 03/02 17:37 Order name: Cardiac monitoring 03/02 17:37 Order name: EKG - Nurse/Tech; Complete Time: 17:49 kb 03/02 17:37 Order name: IV Saline Lock; Complete Time: 17:49 kb 03/02 17:37 Order name: Labs collected and sent; Complete Time: 17:49 kb 03/02 17:37 Order name: O2 Per Protocol kb 03/02 17:37 Order name: O2 Sat Monitoring kb Administered Medications: 03/02 17:51 Drug: Aspirin PO Chewable Tablet 324 mg Route: PO; mb9 Disposition Summary: 03/02/23 22:20 Discharge Ordered Location: Home kb Condition: Stable kb Diagnosis - Chest pain, unspecified kb Followup: kb - With: Emergency Department - When: As needed - Reason: Worsening of condition Followup: kb - With: Private Physician - When: 2 - 3 days - Reason: Recheck today's complaints, Continuance of care, Re-evaluation by your physician Discharge Instructions: - Discharge Summary Sheet kb - Nonspecific Chest Pain, Adult, [id number] kb Forms: - Medication Reconciliation Form kb - Thank You Letter kb - Antibiotic Education kb - Prescription Opioid Use kb - Patient Portal Instructions kb - Leadership Thank You Letter kb Signatures: Dispatcher [employer] EDMS Lien Arango, HYDROTHERAPIST-C HYDROTHERAPIST-Chichi Ochoa RN RN mb9 Corrections: (The following items were deleted from the chart) 18:24 18:11 BASIC METABOLIC PANEL+C.LAB.BRZ ordered. EDMS EDMS 18:24 18:11 CBC+H.LAB.BRZ ordered. EDMS EDMS 18:24 18:11 MAGNESIUM+C.LAB.BRZ ordered. EDMS EDMS 18:24 18:11 PROBNP+C.LAB.BRZ ordered. EDMS EDMS 18:24 18:11 Troponin High Sensitivity+C.LAB.BRZ ordered. EDMS EDMS 18:25 18:11 PROTIME (+INR)+COAG.LAB.BRZ ordered. EDMS EDMS
[2023-03-03 00:50] VITALS: BP 153/83; TEMP 98.2; O2SAT 98
--- NOTE | 2023-03-03 16:29 | EKG ---
Test Date: 2023-03-02 Test Time: 17:41:27 Rigging Up Worker: SCOTTY MEASUREMENT RESULTS: Intervals: Rate: 60 WI: 168 QRSD: 120 QT: 474 QTc: 474 [place]: P: 38 WI: 168 QRS: 79 T: 94 INTERPRETIVE STATEMENTS: Normal sinus rhythm Right bundle branch block Abnormal ECG Compared to ECG 09/05/2021 19:48:32 T-wave abnormality no longer present Possible ischemia no longer present Electronically Signed On 03-03-23 16:26:03 CDT by Walter De Dios
== END 2023-03-02 22:28 | disposition home or self-care (01) ==
LOC: ER 17:23
DX: R07.89 Other chest pain (principal)
CPT/HCPCS: 36415; 71045; 80048; 83735; 83880; 84484; 85025; 85379; 85610; 93005; 99284

== ENCOUNTER 2023-12-24 00:12 | Inpatient (IN) | payer MEDICARE ==
[2023-12-24] MEDS ORDERED: ACETAMINOPHEN 500 MG TAB ONE (00:45)
[2023-12-24] MEDS ORDERED: VANCOMYCIN 1 GM/VIAL ONE (00:45)
[2023-12-24] MEDS ORDERED: NA CHLORIDE 0.9% 250 ML ONE (00:46)
[2023-12-24] MEDS ORDERED: NA CHLORIDE 0.9% 500 ML ONE (00:46)
[2023-12-24] MEDS ORDERED: NA CHLORIDE 0.9% 2,000 ML ONE (00:46)
[2023-12-24] MEDS ORDERED: IBUPROFEN 400 MG TAB ONE (00:46)
[2023-12-24] MEDS ORDERED: PIPERACIL/TAZO 3.375 GM VIAL IV ONE (00:47)
[2023-12-24] MEDS ORDERED: NA CHLORIDE 0.9% 100 ML ONE (00:47)
[2023-12-24 01:10] LABS: Absolute Lymphocytes (CBC) 0.7 K/uL (0.7-4.9); Absolute Monocytes 1.1 K/uL (0.1-1.3); Absolute Neutrophil 4.6 K/uL (1.8-8.0); Basophils % 0.6 % (0-1.3); Eosinophils % 0.2 % (0-4.4); Hemoglobin 12.4 g/dL (13.6-17.9); Lymphocytes % 11.2 % (15.3-44.8); MCH 28.8 pg (27.0-35.0); MCHC 32.8 g/dL (32.0-36.0); MCV 87.9 fL (80-100); MPV 10.8 fL (7.6-11.3); Monocytes % 16.8 % (3.3-12.3); Neutrophils % 71.2 % (41.7-73.7); Nucleated Red Blood Cells % 0.1 % (0-0); Platelets 98 thou/uL (152-406); RBC Red Blood Cell Count 4.32 M/uL (4.33-5.43); Red Cell Distribution Width 16.2 % (12.1-15.2)
[2023-12-24 01:22] LABS: ALT/SGPT 61 U/L (16-61); AST/SGOT 68 U/L (15-37); Albumin 3.5 g/dL (3.4-5.0); Albumin/Globulin Ratio 0.9 (1.1-1.8); Alkaline Phosphatase 45 U/L (45-117); Anion Gap 8.1 mEq/L (5.0-15.0); BUN Blood Urea Nitrogen 32 mg/dL (7-18); Bicarbonate 27 mEq/L (21-32); Bilirubin Total 0.3 mg/dL (0.2-1.0); Globulin 4.1 g/dL (2.3-3.5); Glomerular Filtration Rate 38 ml/min (=/>90); Glucose Level 151 mg/dL (74-106); Magnesium 2.8 mg/dL (1.6-2.4); NT PRO-BNP 3289 pg/mL (<125); Potassium 5.1 mEq/L (3.5-5.1); Protein, Total 7.6 g/dL (6.4-8.2); Sodium Level 138 mEq/L (136-145); Troponin High Sensitivity 23.3 pg/mL (<58.9)
[2023-12-24 01:27] LABS: Bilirubin Direct < 0.2 mg/dL (0-0.2); Bilirubin Indirect, Calculated 0.1 mg/dL (0.2-0.8)
[2023-12-24 02:07] LABS: SARS-CoV-2 Antigen CONTROL BLUE LINE VIS/BG OK; SARS-CoV-2 Antigen Rapid Res Positive (Negative)
--- NOTE | 2023-12-24 03:25 | ER ---
Nurse's Notes [facility] Name: Barrington Fletcher Age: 68 yrs Sex: Male : 1955 Arrival Date: 12/24/2023 Time: 00:12 Bed 2 Private MD: Diagnosis: Acute febrile illness, generalized weakness, COVID-19 acute, congestive heart failure. Presentation: 12/23 00:16 Chief complaint: EMS states: pt was found on floor this morning at home by around bm8 0830, at the time pt declined to go to hospital. called 911 because he doesn't seem to be acting himself all day. Coronavirus screen: At this time, the client does not indicate any symptoms associated with coronavirus-19. Ebola Screen: Patient negative for fever greater than or equal to 101.5 degrees Fahrenheit, and additional compatible Ebola Virus Disease symptoms Patient denies exposure to infectious person. Patient denies travel to an Ebola-affected area in the 21 days before illness onset. No symptoms or risks identified at this time. Initial Sepsis Screen: Does the patient meet any 2 criteria? Temp <36.0*C (96.8*F)) or > 38.3*C (100.9*F). No. Patient's initial sepsis screen is negative. Does the patient have a suspected source of infection? No. Patient's initial sepsis screen is negative. Risk Assessment: Do you want to hurt yourself or someone else? Patient reports no desire to harm self or others. Onset of symptoms was December 23, 2023 at 08:30. 00:16 Method Of Arrival: EMS: [facility] bm8 00:16 Acuity: EVIE 2 bm8 00:25 Care prior to arrival: IV initiated. 20 GA, in the right antecubital area. bm8 Triage Assessment: 00:19 General: Appears in no apparent distress. comfortable, Behavior is cooperative, drowsy. bm8 Pain: Denies pain. EENT: No deficits noted. No signs and/or symptoms were reported regarding the EENT system. Neuro: Level of Consciousness is awake, obeys commands, lethargic, Oriented to person, place, time, situation, Rug Renovator are equal bilaterally Moves all extremities. Weakness in bilateral leg(s) Speech is normal, Facial symmetry appears normal, Pupils are PERRLA, Pupil Size: 3. Cardiovascular: Denies chest pain, lightheadedness, shortness of breath, Heart tones S1 S2 present Capillary refill < 3 seconds Patient's skin is warm and dry. Rhythm is right bundle branch block. Respiratory: Airway is patent Trachea midline Respiratory effort is even, unlabored, Respiratory pattern is regular, symmetrical, Breath sounds are clear bilaterally. GI: No signs and/or symptoms were reported involving the gastrointestinal system. : No signs and/or symptoms were reported regarding the genitourinary system. Derm: No signs and/or symptoms reported regarding the dermatologic system. Musculoskeletal: No signs and/or symptoms reported regarding the musculoskeletal system. Historical: - Allergies: 00:19 No Known Allergies; bm8 - Home Meds: 00:19 aspirin 81 mg Oral tab [Active]; divalproex 500 mg Oral Tb24 1 tab twice a day bm8 [Active]; escitalopram oxalate 10 mg Oral tab 1 tab once daily [Active]; Farxiga 5 mg Oral tab 1 tab once daily [Active]; gabapentin 300 mg Oral cap twice a day [Active]; glimepiride 2 mg Oral tab twice a day [Active]; hydrochlorothiazide 25 mg Oral tab 1 tab once daily [Active]; lisinopril 20 mg Oral tab 1 tab once daily [Active]; metformin 750 mg Oral Tb24 twice a day [Active]; metoprolol tartrate 25 mg Oral tab 1 tab once daily [Active]; rosuvastatin 20 mg Oral tab twice a day [Active]; Tresiba FlexTouch U-100 100 unit/mL (3 mL) subcutaneous inpn 20 unit daily [Active]; - PMHx: 00:19 CVA; Diabetes - NIDDM; Hypertension; Myocardial infarction; x2; neuropathy; bm8 hyperlipidema (neuropathy); - PSHx: 00:19 veins unclogged in legs; bm8 - Immunization history:: Adult Immunizations up to date. - Infectious Disease History:: Denies. - Social history:: Smoking status: Patient denies any tobacco usage or history of. - Family history:: not pertinent. Screenin:26 [facility] ED Fall Risk Assessment (Adult) History of falling in the last 3 months, bm8 including since admission No falls in past 3 months (0 pts) Confusion or Disorientation Yes (5 pts) Intoxicated or Sedated No (0 pts) Impaired Gait No (0 pts) Mobility Assist Device Used Altered Elimination No (0 pt) Score/Fall Risk Level 3 or more points = High Risk Oriented to surroundings, Maintained a safe environment, Educated pt \\T\\ family on fall prevention, incl call for assistance when getting out of bed, Assessed \\T\\ reinforced patient's understanding of fall precautions, Provided non-skid footwear. Abuse screen: Denies threats or abuse. Nutritional screening: No deficits noted. Tuberculosis screening: No symptoms or risk factors identified. Assessment: 00:25 Reassessment: see triage note. bm8 01:36 Reassessment: Patient appears in no apparent distress at this time. Patient and/or bm8 family updated on plan of care and expected duration. Pain level reassessed. Patient is alert, oriented x 3, equal unlabored respirations, skin warm/dry/pink. Patient states feeling better. Patient states symptoms have improved. Reassessment: pt still appears weak, extra effort needed to move around. is now at bedside. General: Appears in no apparent distress. comfortable, Behavior is calm, cooperative, appropriate for age. Pain: Denies pain. Neuro: No deficits noted. Level of Consciousness is awake, alert, obeys commands, Oriented to person, place, time, situation, Appropriate for age. 02:41 Reassessment: Patient appears in no apparent distress at this time. Patient and/or bm8 family updated on plan of care and expected duration. Pain level reassessed. Patient is alert, oriented x 3, equal unlabored respirations, skin warm/dry/pink. pt is resting with eyes closed breathing is even unlabored. pt is esily arousable and denies pain at this time. states " I just feel really worn out right now Patient states feeling better. Patient states symptoms have improved. 04:25 Reassessment: Patient appears in no apparent distress at this time. No changes from bm8 previously documented assessment. Patient and/or family updated on plan of care and expected duration. Pain level reassessed. Patient is alert, oriented x 3, equal unlabored respirations, skin warm/dry/pink. pt is resting with eyes closed breathing is even unlabored at this time. Patient states feeling better. 05:39 Reassessment: Patient appears in no apparent distress at this time. No changes from bm8 previously documented assessment. Patient and/or family updated on plan of care and expected duration. Pain level reassessed. Patient is alert, oriented x 3, equal unlabored respirations, skin warm/dry/pink. Vital Signs: 00:16 BP 186 / 63; Pulse 72; Resp 18; Temp 102.5; Pulse Ox 97% on R/A; Weight 82.55 kg; bm8 Height 68 in. ; Pain 0/10; 01:36 BP 159 / 88; Pulse 74; Resp 18; Pulse Ox 99% ; Pain 0/10; bm8 02:41 BP 117 / 54; Pulse 59; Resp 15; Temp 99; Pulse Ox 96% ; Pain 0/10; bm8 04:25 BP 104 / 52; Pulse 94; Resp 27; Temp 98.7; Pulse Ox 96% on R/A; Pain 0/10; bm8 05:39 BP 106 / 46; Pulse 49; Resp 16; Temp 98.7; Pulse Ox 99% on R/A; Pain 0/10; bm8 00:16 Body Mass Index 27.67 (82.55 kg, 172.72 cm) bm8 00:16 Pain Scale: Adult bm8 01:36 Pain Scale: Adult bm8 02:41 Pain Scale: Adult bm8 04:25 Pain Scale: Adult bm8 05:39 Pain Scale: Adult bm8 Pat Coma Score: 00:30 Eye Response: spontaneous(4). Motor Response: obeys commands(6). Verbal Response: sp4 oriented(5). Total: 15. 01:36 Eye Response: spontaneous(4). Motor Response: obeys commands(6). Verbal Response: bm8 oriented(5). Total: 15. 02:41 Eye Response: spontaneous(4). Motor Response: obeys commands(6). Verbal Response: bm8 oriented(5). Total: 15. 04:25 Eye Response: spontaneous(4). Motor Response: obeys commands(6). Verbal Response: bm8 oriented(5). Total: 15. 05:39 Eye Response: spontaneous(4). Motor Response: obeys commands(6). Verbal Response: bm8 oriented(5). Total: 15. NIH Stroke Scale Scores: 00:30 NIHSS Score: 0 sp4 ED Course: 00:13 Patient arrived in ED. jj6 00:16 Jalen Rodriguez, RN is Primary Nurse. bm8 00:17 Shekhar Cervantes MD is Attending Physician. sp4 00:19 Triage completed. bm8 00:19 Arm band placed on right wrist. EKG completed in triage. Results shown to MD. bm8 00:26 Patient has correct armband on for positive identification. Placed in gown. Bed in low bm8 position. Call light in reach. Side rails up X2. Provided Education on: need for admission. Client placed on continuous cardiac and pulse oximetry monitoring. NIBP monitoring applied. lump room supervisor on. Pulse ox on. NIBP on. Door closed. Noise minimized. Pillow given. Verbal reassurance given. Head of bed lowered. 00:26 No provider procedures requiring assistance completed. Maintain EMS IV. Dressing bm8 intact. Good blood return noted. Site clean \\T\\ dry. Gauge \\T\\ site: 20g. IV is patent, with fluids infusing freely, with good blood return, Changed dressing on right antecubital Flushed right antecubital with 5 ml normal saline. 00:40 Initial lab(s) drawn, by me, sent to lab. First set of blood cultures drawn EKG done, vk by ED staff. 00:48 Basic Metabolic Panel Sent. jb4 00:48 CBC with Diff Sent. jb4 00:48 LFT's Sent. jb4 00:48 Magnesium Sent. jb4 00:48 NT PRO-BNP Sent. jb4 00:48 PT-INR Sent. jb4 00:48 Troponin HS Sent. jb4 00:49 Inserted saline lock: 22 gauge in left forearm, using aseptic technique. Blood vk collected. 01:00 XRAY Chest (1 view) In Process Unspecified. EDMS 01:59 Chest Abd Pelvis Wo Con In Process Unspecified. EDMS 02:00 CT Head Brain wo Cont In Process Unspecified. EDMS 03:22 Mariann Trammell MD is Hospitalizing Provider. sp4 05:40 Patient admitted, IV remains in place. bm8 Administered Medications: 01:06 Drug: NS 0.9% IV 500 ml IV at bolus once Route: IV; Rate: bolus; Site: right bm8 antecubital; 02:50 Follow up: Response: No adverse reaction; IV Status: Completed infusion; IV Intake: bm8 500ml 01:10 Drug: vancoMYCIN IVPB 1 grams IVPB once over 2 hrs Route: IVPB; Infused Over: 2 hrs; bm8 Site: right antecubital; 02:51 Follow up: Response: No adverse reaction; IV Status: Completed infusion; IV Intake: bm8 250ml 01:10 Drug: Piperacillin-Tazobactam IVPB 3.375 grams IVPB once over 60 mins; (mix in NS 100 bm8 mL) Route: IVPB; Infused Over: 60 mins; Site: left antecubital; 02:51 Follow up: Response: No adverse reaction; IV Status: Completed infusion; IV Intake: bm8 100ml 01:11 Drug: NS 0.9% IV 1000 ml IV at 125 ml/hr continuous Route: IV; Rate: 125 ml/hr; Site: bm8 left antecubital; 05:42 Follow up: Response: No adverse reaction; IV Status: Infusion continued upon admission bm8 01:11 Drug: Acetaminophen PO 1000 mg PO once Route: PO; bm8 02:51 Follow up: Response: No adverse reaction bm8 01:11 Drug: Ibuprofen PO 800 mg PO once Route: PO; bm8 02:51 Follow up: Response: No adverse reaction bm8 Medication: 00:26 VIS not applicable for this client. bm8 Intake: 02:50 IV: 500ml; Total: 500ml. bm8 02:51 IV: 100ml; Total: 600ml. bm8 02:51 IV: 250ml; Total: 850ml. bm8 Outcome: 03:24 Decision to Hospitalize by Provider. sp4 05:40 Admitted to Med/surg accompanied by nurse, via stretcher, with chart, [facility] 05:40 Condition: stable 05:40 Instructed on the need for admit, 05:49 Patient left the ED. bm8 NIH Stroke Scale - NIH Stroke Score Date: 12/24/2023 Time: 00:30 Total Score = 0 10. Dysarthria (speech clarity - read or repeat words) - 0(Normal) 11. Extinction and Inattention (visual/tactile/auditory/spatial/personal) - 0(No abnormality) 1a. Level of Consciousness (LOC) - 0(Alert) 1b. Level of Consciousness (LOC) (Month \\T\\ Age) - 0(Both) 1c. LOC Commands (Open \\T\\ Closes Eyes/Electrical Power Station Technician) - 0(Both) 2. Best Gaze (Lateral Gaze Paresis) - 0(Normal) 3. Visual Field Loss - 0(No visual loss) 4. Facial Palsy - 0(Normal) 5a. Left Arm: Motor (10-second hold) - 0(No drift) 5b. Right Arm: Motor (10-second hold) - 0(No drift) 6a. Left Leg: Motor (5-second hold - always test supine) - 0(No drift) 6b. Right Leg: Motor (5-second hold - always test supine) - 0(No drift) 7. Limb Ataxia (finger/nose \\T\\ heel/mendieta - test with eyes open) - 0(Absent) 8. Sensory Loss (pinprick arms/legs/face) - 0(Normal) 9. Best Language: Aphasia (description/naming/reading) - 0(No aphasia) Initials: sp4 Signatures: Dispatcher [employer] EDStar Cali, RN RN jb4 Vanessa Stratton6 Shekhar Cervantes MD MD sp4 Glenis Oleary Brad, RN RN bm8
--- NOTE | 2023-12-24 03:25 | EDPHYS ---
Physician Documentation [facility] Name: Barrington Fletcher Age: 68 yrs Sex: Male : 1955 Arrival Date: 12/24/2023 Time: 00:12 Bed 2 Private MD: ED Physician Shekhar Cervantes HPI: 12/23 00:17 This 68 yrs old Male presents to ER via Unassigned with complaints of Fall sp4 Injury. 03:32 Patient is six 8-year-old male who presents with complaint of generalized weakness also sp4 febrile on arrival. Patient has past medical history of blood loss anemia, Higgins's esophagus, diabetes mellitus type 2, acute kidney injury, history of CAD, hypertension. Patient medications include clopidogrel, escitalopram, Depakote, Tresiba, metoprolol, gabapentin, metformin, aspirin. Crestor, lisinopril, Protonix.. Historical: - Allergies: 00:19 No Known Allergies; bm8 - Home Meds: 00:19 aspirin 81 mg Oral tab [Active]; divalproex 500 mg Oral Tb24 1 tab twice a day bm8 [Active]; escitalopram oxalate 10 mg Oral tab 1 tab once daily [Active]; Farxiga 5 mg Oral tab 1 tab once daily [Active]; gabapentin 300 mg Oral cap twice a day [Active]; glimepiride 2 mg Oral tab twice a day [Active]; hydrochlorothiazide 25 mg Oral tab 1 tab once daily [Active]; lisinopril 20 mg Oral tab 1 tab once daily [Active]; metformin 750 mg Oral Tb24 twice a day [Active]; metoprolol tartrate 25 mg Oral tab 1 tab once daily [Active]; rosuvastatin 20 mg Oral tab twice a day [Active]; Tresiba FlexTouch U-100 100 unit/mL (3 mL) subcutaneous inpn 20 unit daily [Active]; - PMHx: 00:19 CVA; Diabetes - NIDDM; Hypertension; Myocardial infarction; x2; neuropathy; bm8 hyperlipidema (neuropathy); - PSHx: 00:19 veins unclogged in legs; bm8 - Immunization history:: Adult Immunizations up to date. - Infectious Disease History:: Denies. - Social history:: Smoking status: Patient denies any tobacco usage or history of. - Family history:: not pertinent. ROS: 03:32 Constitutional: Positive generalized weakness, positive fever, positive fall at home sp4 03:32 All other systems are negative, Exam: 03:16 ECG was reviewed by the Attending Physician. EKG at 0010 normal sinus rhythm at sp4 rate of 72, right bundle branch block, no ST elevation or depression. Otherwise normal. 03:32 Constitutional: This is a well developed, ill-appearing male, overweight, generalized sp4 weakness, febrile on arrival. Head/Face: Normocephalic, atraumatic. Eyes: Pupils equal round and reactive to light, extra-ocular motions intact. Lids and lashes normal. Conjunctiva and sclera are not injected. Cornea within normal limits. Periorbital areas with no swelling, redness, or edema. ENT: Nares patent. No nasal discharge, no septal abnormalities noted. Tympanic membranes are normal and external auditory canals are clear. Oropharynx with no redness, swelling, or masses, exudates, or evidence of obstruction, uvula midline. Mucous membranes moist. Neck: Trachea midline, no thyromegaly or masses palpated, and no cervical lymphadenopathy. Supple, full range of motion without nuchal rigidity, or vertebral point tenderness. Chest/axilla: Normal chest wall appearance and motion. Nontender with no deformity. No lesions are appreciated. Cardiovascular: Regular rate and rhythm with a normal S1 and S2. No gallops, murmurs, or rubs. Normal PMI, no JVD. No pulse deficits. Respiratory: Lungs have equal breath sounds bilaterally, clear to auscultation and percussion. No rales, rhonchi or wheezes noted. No increased work of breathing, no retractions or nasal flaring. Abdomen/GI: Soft, with normal bowel sounds. No distension or tympany. No guarding or rebound. No evidence of tenderness throughout. Back: No spinal tenderness. No costovertebral tenderness. Skin: Warm, dry with normal turgor. Normal color with no rashes, no lesions, and no evidence of cellulitis. MS/ Extremity: Pulses equal, no cyanosis. Neurovascular intact. Full, normal range of motion. Neuro: Awake and alert, GCS 15, oriented to person, place, time, and situation. Cranial nerves II-XII grossly intact. Motor strength 5/5 in all extremities. Sensory grossly intact. Psych: Awake, alert, with orientation to person, place and time. Behavior, mood, and affect are within normal limits Vital Signs: 00:16 BP 186 / 63; Pulse 72; Resp 18; Temp 102.5; Pulse Ox 97% on R/A; Weight 82.55 kg; bm8 Height 68 in. ; Pain 0/10; 01:36 BP 159 / 88; Pulse 74; Resp 18; Pulse Ox 99% ; Pain 0/10; bm8 02:41 BP 117 / 54; Pulse 59; Resp 15; Temp 99; Pulse Ox 96% ; Pain 0/10; bm8 04:25 BP 104 / 52; Pulse 94; Resp 27; Temp 98.7; Pulse Ox 96% on R/A; Pain 0/10; bm8 05:39 BP 106 / 46; Pulse 49; Resp 16; Temp 98.7; Pulse Ox 99% on R/A; Pain 0/10; bm8 00:16 Body Mass Index 27.67 (82.55 kg, 172.72 cm) bm8 00:16 Pain Scale: Adult bm8 01:36 Pain Scale: Adult bm8 02:41 Pain Scale: Adult bm8 04:25 Pain Scale: Adult bm8 05:39 Pain Scale: Adult bm8 NIH Stroke Scale Scores: 00:30 NIHSS Score: 0 sp4 Barron Coma Score: 00:30 Eye Response: spontaneous(4). Motor Response: obeys commands(6). Verbal Response: sp4 oriented(5). Total: 15. 01:36 Eye Response: spontaneous(4). Motor Response: obeys commands(6). Verbal Response: bm8 oriented(5). Total: 15. 02:41 Eye Response: spontaneous(4). Motor Response: obeys commands(6). Verbal Response: bm8 oriented(5). Total: 15. 04:25 Eye Response: spontaneous(4). Motor Response: obeys commands(6). Verbal Response: bm8 oriented(5). Total: 15. 05:39 Eye Response: spontaneous(4). Motor Response: obeys commands(6). Verbal Response: bm8 oriented(5). Total: 15. MDM: 00:35 Patient medically screened. sp4 03:11 ED course: EXAM DESCRIPTION: Chest Single View RadLex: XR CHEST 1 VIEW CLINICAL sp4 HISTORY: 68 years Male, CHEST PAIN COMPARISON: None. FINDINGS: Single portable AP supine view of the chest. Cardiac silhouette is likely within normal limits for technique. No consolidation, visualized pleural effusion, or pneumothorax identified within the limitations of supine technique. No acute osseous abnormality. IMPRESSION: No acute radiographic abnormality. . ED course: EXAM DESCRIPTION: Head Brain Wo Cont 12/24/2023 2:33 AM CDT CLINICAL HISTORY: 68 years, Male, DIZZINESS COMPARISON: 04/10/2022 FINDINGS: Multiple transaxial tomograms of the brain were obtained from the base of the skull to the vertex without contrast. An individualized dose optimization technique, Automated Exposure Control, was utilized for the performed procedure. Brain: The brain demonstrate prominence of the sulci and gyri corresponding to mild brain atrophy. No acute intracranial hemorrhage. No midline shift and/or mass effect. Ventricles: Lateral ventricles and cisterns displace normal appearance. Vasculature: No visualized abnormalities in the arteries or dural venous sinuses. Scalp/skull: The calvarium demonstrate to be intact with no evidence for acute bony injuries. Sinuses: The visualized paranasal sinuses and mastoid air cells demonstrate to be clear. Orbits: No significant abnormalities in the visualized orbital structures. IMPRESSION: No acute intracranial hemorrhage. Mild brain atrophy. No significant interval change. . ED course: TECHNIQUE: CT CHESTABDOMEN PELVIS WITHOUT IV CONTRAST on 12/24/2023 12:34 AM CDT This exam was performed according to our departmental dose-optimization program, which includes automated exposure control, adjustment of the mA and/or kV according to patient size and/or use of iterative reconstruction technique. FINDINGS: Chest: The heart is borderline in size. There is no pericardial effusion. Intrathoracic lymph nodes are not enlarged. There is no pleural effusion, pleural thickening or pneumothorax. Central airways are patent. Lungs are clear with no consolidation, mass or interstitial lung disease. Abdomen: The liver is normal in appearance. There is no biliary dilatation. Gallbladder is unremarkable. The pancreas and spleen are normal in appearance. Adrenal glands are normal. Kidneys are mildly atrophic. Abdominal aorta is moderately calcified without aneurysm. There is no free air. There is no retroperitoneal adenopathy. Pelvis: There is no bowel obstruction. Urinary bladder is unremarkable. There is no free fluid. Appendix is normal. Skeleton: There are no acute osseous findings. No suspicious bony lesions. IMPRESSION: No definite acute process. . Electronically signed by: Zev Noyola MD 12/24/2023 02:53 AM. 03:32 Differential diagnosis: closed head injury, contusion, fracture, multiple trauma. Data [facility] reviewed: vital signs, nurses notes, EMS record, lab test result(s), EKG, radiologic studies, CT scan, plain films. Consideration of Admission/Observation Patient was admitted/placed on observation. Escalation of care including admission/observation considered. Management of patient was discussed with the following: Hospitalist: Mariann ARTHUR . ED course: Patient has moderate to severe generalized weakness without focal deficits. This is likely secondary to acute COVID-related illness and generalized fever. Patient warrants admission at this time secondary to acute renal insufficiency, generalized weakness, and acute COVID-related illness. 12/23 00:31 Order name: Basic Metabolic Panel [facility] 12/23 00:31 Order name: CBC with Diff; Complete Time: 04:21 [facility] 12/23 00:31 Order name: LFT's [facility] 12/23 00:31 Order name: Magnesium [facility] 12/23 00:31 Order name: NT PRO-BNP [facility] 12/23 00:31 Order name: PT-INR; Complete Time: 03:09 [facility] 12/23 00:31 Order name: Troponin HS [facility] 12/23 00:31 Order name: Glucose, Ancillary Testing; Complete Time: 03:09 [facility] 12/23 00:31 Order name: Blood Culture Adult (2) [facility] 12/23 00:34 Order name: Urinalysis W/Microscopic [facility] 12/23 00:34 Order name: SARS RAPID; Complete Time: 03:09 [facility] 12/23 00:34 Order name: Influenza Screen (a \T\ B); Complete Time: 03:09 [facility] 12/23 00:34 Order name: Lactate w/ 2H reflex if indic.; Complete Time: 03:09 [facility] 12/23 01:17 Order name: CBC Smear Scan; Complete Time: 04:21 [facility] 12/23 04:29 Order name: Creatine Phosphokinase [facility] 12/23 04:29 Order name: Thyroid Stimulating Hormone [facility] 12/23 04:29 Order name: CBC with Automated Diff [facility] 12/23 04:29 Order name: CBC with Automated Diff [facility] 12/23 04:29 Order name: Comprehensive Metabolic Panel [facility] 12/23 04:29 Order name: Comprehensive Metabolic Panel [facility] 12/23 04:29 Order name: Lipid Profile [facility] 12/23 04:29 Order name: Lipid Profile [facility] 12/23 04:29 Order name: Troponin High Sensitivity [facility] 12/23 04:29 Order name: Troponin High Sensitivity [facility] 12/23 04:29 Order name: Troponin High Sensitivity [facility] 12/23 04:29 Order name: Troponin High Sensitivity [facility] 12/23 00:31 Order name: XRAY Chest (1 view) [facility] 12/23 00:33 Order name: CT Head Brain wo Cont 4 12/23 01:59 Order name: Chest Abd Pelvis Wo Con [facility] 12/23 00:31 Order name: EKG; Complete Time: 00:31 4 12/23 04:29 Order name: CONS Physician Consult [facility] 12/23 04:29 Order name: Occupational Therapy Consult [facility] 12/23 04:29 Order name: Physical Therapy Consult [facility] 12/23 00:31 Order name: Cardiac monitoring; Complete Time: 00:48 sp4 12/23 00:31 Order name: EKG - Nurse/Tech; Complete Time: 00:48 sp4 12/23 00:31 Order name: IV Saline Lock; Complete Time: 00:48 sp4 12/23 00:31 Order name: Labs collected and sent; Complete Time: 00:48 4 12/23 00:31 Order name: O2 Per Protocol; Complete Time: 01:11 sp4 12/23 00:31 Order name: O2 Sat Monitoring; Complete Time: 01:11 4 EC:16 Rate is 72 beats/min. Rhythm is regular, Normal Sinus Rhythm. QRS [place] is Normal. PA sp4 interval is normal. QRS interval is prolonged. QT interval is normal. No Q waves. T waves are Normal. No ST changes noted. Clinical impression: No evidence of ischemia. Interpreted by me. Reviewed by me. Administered Medications: 01:06 Drug: NS 0.9% IV 500 ml IV at bolus once Route: IV; Rate: bolus; Site: right bm8 antecubital; 02:50 Follow up: Response: No adverse reaction; IV Status: Completed infusion; IV Intake: bm8 500ml 01:10 Drug: vancoMYCIN IVPB 1 grams IVPB once over 2 hrs Route: IVPB; Infused Over: 2 hrs; bm8 Site: right antecubital; 02:51 Follow up: Response: No adverse reaction; IV Status: Completed infusion; IV Intake: bm8 250ml 01:10 Drug: Piperacillin-Tazobactam IVPB 3.375 grams IVPB once over 60 mins; (mix in NS 100 bm8 mL) Route: IVPB; Infused Over: 60 mins; Site: left antecubital; 02:51 Follow up: Response: No adverse reaction; IV Status: Completed infusion; IV Intake: bm8 100ml 01:11 Drug: NS 0.9% IV 1000 ml IV at 125 ml/hr continuous Route: IV; Rate: 125 ml/hr; Site: bm8 left antecubital; 05:42 Follow up: Response: No adverse reaction; IV Status: Infusion continued upon admission bm8 01:11 Drug: Acetaminophen PO 1000 mg PO once Route: PO; bm8 02:51 Follow up: Response: No adverse reaction bm8 01:11 Drug: Ibuprofen PO 800 mg PO once Route: PO; bm8 02:51 Follow up: Response: No adverse reaction bm8 Disposition Summary: 12/24/23 03:24 Hospitalization Ordered Notes: Hospitalization Status: Inpatient Admission sp4 Provider: Mariann Trammell sp4 Location: Telemetry/[facility] (Inpatient) sp4 Condition: Stable sp4 Problem: new sp4 Symptoms: have improved sp4 Bed/Room Type: Standard sp4 Room Assignment: 222(12/24/23 04:50) lg3 Diagnosis - Acute febrile illness, generalized weakness, COVID-19 acute, congestive heart sp4 failure. Forms: - Medication Reconciliation Form sp4 - SBAR form sp4 - Leadership Thank You Letter sp4 NIH Stroke Scale - NIH Stroke Score Date: 12/24/2023 Time: 00:30 Total Score = 0 10. Dysarthria (speech clarity - read or repeat words) - 0(Normal) 11. Extinction and Inattention (visual/tactile/auditory/spatial/personal) - 0(No abnormality) 1a. Level of Consciousness (LOC) - 0(Alert) 1b. Level of Consciousness (LOC) (Month \T\ Age) - 0(Both) 1c. LOC Commands (Open \T\ Closes Eyes/Cupola Repairer) - 0(Both) 2. Best Gaze (Lateral Gaze Paresis) - 0(Normal) 3. Visual Field Loss - 0(No visual loss) 4. Facial Palsy - 0(Normal) 5a. Left Arm: Motor (10-second hold) - 0(No drift) 5b. Right Arm: Motor (10-second hold) - 0(No drift) 6a. Left Leg: Motor (5-second hold - always test supine) - 0(No drift) 6b. Right Leg: Motor (5-second hold - always test supine) - 0(No drift) 7. Limb Ataxia (finger/nose \T\ heel/mendieta - test with eyes open) - 0(Absent) 8. Sensory Loss (pinprick arms/legs/face) - 0(Normal) 9. Best Language: Aphasia (description/naming/reading) - 0(No aphasia) Initials: sp4 Signatures: Dispatcher [employer] EDMS Virginia Wray, RN RN lg3 Shekhar Cervantes MD MD sp4 Jalen Rodriguez, RN RN bm8 Corrections: (The following items were deleted from the chart) 00:31 00:31 BASIC METABOLIC PANEL+C.LAB.BRZ ordered. EDMS EDMS 00:31 00:31 CBC+H.LAB.BRZ ordered. EDMS EDMS 00:31 00:31 HEPATIC FUNCTION+C.LAB.BRZ ordered. EDMS EDMS 00:31 00:31 MAGNESIUM+C.LAB.BRZ ordered. EDMS EDMS 00:31 00:31 PROBNP+C.LAB.BRZ ordered. EDMS EDMS 00:31 00:31 PROTIME (+INR)+COAG.LAB.BRZ ordered. EDMS EDMS 00:31 00:31 Troponin High Sensitivity+C.LAB.BRZ ordered. EDMS EDMS 01:59 00:34 Chest Abdomen Pelvis W Con+CT.RAD.BRZ ordered. EDMS EDMS 04:50 03:24 sp4 lg3
[2023-12-24 03:33] LABS: Blood Morphology Comment NOT SEEN (NOT SEEN); Platelet Estimate ADEQ; White Blood Cell Scan OK (OK)
[2023-12-24] MEDS ORDERED: IPRATROPIUM BROM 0.5MG/2.5ML NEB PRN (04:20)
[2023-12-24] MEDS ORDERED: MORPHINE 4 MG/ML SYR IV PRN (04:20)
[2023-12-24] MEDS ORDERED: ALBUTEROL 2.5 MG/3 ML NEB SOL NEB PRN (04:20)
[2023-12-24] MEDS ORDERED: ONDANSETRON 4 MG/2 ML VIAL IV PRN (04:20)
--- NOTE | 2023-12-24 04:20 | P.HP ---
Certification for Inpatient With expected LOS: >2 Midnights Patient will require the following post-hospital care: None Practitioner: I am a practitioner with admitting privileges, knowledge of patient current condition, hospital course, and medical plan of care. Services: Services provided to patient in accordance with Admission requirements found in Title 42 Section 412.3 of the Code of Federal Regulations Patient History Date of Service: 12/24/23 Reason for admission: Weakness History of Present Illness: 68-year-old male with past medical history of HTN/DM/peripheral neuropathy who presented because of increasing weakness fever since the last 3 days. Patient weakness initially has been been progressive over the last 2 days. Patient felt so weak today he was on the floor. The was found him on the floor and as encouraged him to come to the emergency room. Patient denies any nausea vomiting but admits to decreased p.o. intake. Admits to cough but no sputum. He denies any shortness of breath. Patient denies any sick contacts. Patient is sleepy but able to be aroused by answer simple questions, at bedside providing history. On arrival in the ED blood pressure was elevated in the 180s over 70s, temp of 102.5. Chest x-ray shows no acute infiltrate. COVID screen was positive. Head CT was negative. Creatinine elevated at 1.9, previous baseline of 1.3-1.6 Allergies No Known Allergies Allergy (Verified 03/27/19 01:52) Home Medications: Clopidogrel Bisulfate [Plavix*] 75 mg PO DAILY 05/16/14 Escitalopram [Lexapro] 10 mg PO DAILY 05/16/14 Divalproex Sodium [Depakote] 500 mg PO BID #60 tablet. 05/17/14 Insulin Degludec [Tresiba Flextouch U-200] 20 unit SQ DAILY 02/24/19 Metoprolol [place]/Hydrochlorothiaz [Metoprolol ER-Hctz 25-12.5 mg] 25 each PO DAILY 02/24/19 Gabapentin 300 mg PO BID 05/05/19 Metformin HCl 750 mg PO BID 05/05/19 Aspirin [Aspirin EC 81 MG] 81 mg PO DAILY 09/06/21 Rosuvastatin [Crestor*] 20 mg PO BID 09/06/21 lisinopriL [Prinivil*] 20 mg PO DAILY 09/06/21 Pantoprazole Sodium [Protonix] 40 mg PO DAILY 30 Days #30 tablet. 09/07/21 - Past Medical/Surgical History Diabetic: Yes -: Diabetes mellitus type 2, insulin dependent -: History of TIA -: CAD -: History of colon cancer -: HTN -: Hyperlipidemia -: Lumbar, cervical spondylosis -: Osteomyelitis right great toe -: Depression -: GERD with hiatal hernia -: Tobacco abuse -: Cardiac stents -: Scrotal surgery -: Bilateral carpal tunnel surgery Psychosocial/ Personal History: The patient is . He has several children. - Family History Father -: Cancer Notes: lung cancer. Mother -: Diabetes, Stroke Notes: 3 aneurysisms. - Social History Smoking Status: Never smoker Smoking therapy provided: No Patient receptive to therapy: No Alcohol use: No CD- Drugs: No Caffeine use: Yes Place of Residence: Home Review of Systems General: Fever, Chills, Weakness Respiratory: Cough Physical Examination - Physical Exam General: Alert, In no apparent distress, Oriented x3, Cooperative HEENT: Atraumatic, Normocephalic, PERRLA Neck: Supple, 2+ carotid pulse no bruit, JVD not distended Respiratory: Clear to auscultation bilaterally, Normal air movement Cardiovascular: Normal pulses, Regular rate/rhythm, Normal S1 S2 Capillary refill: <2 Seconds Gastrointestinal: Normal bowel sounds, Soft and benign, Non-distended Musculoskeletal: No clubbing, No swelling Integumentary: No rashes, No breakdown Neurological: Normal speech, Normal strength at 5/5 x4 extr, Sensation intact, Cranial nerves 3-12 intact - Studies Laboratory Data (last 24 hrs) 12/24/23 12/24/23 12/24/23 00:40 00:40 00:40 WBC 6.40 Hgb 12.4 L Hct 38.0 L Plt Count 98 L PT 11.0 INR 1.00 Sodium 138 Potassium 5.1 BUN 32 H Creatinine 1.91 H Glucose 151 H Magnesium 2.8 H Total Bilirubin 0.3 AST 68 H ALT 61 Alkaline Phosphatase 45 Microbiology Data (last 24 hrs): 12/24/23 01:02 Nasopharnyx Influenza Type A Antigen Screen - Final 12/24/23 01:02 Nasopharnyx Influenza Type B Antigen Screen - Final Assessment and Plan - Plan Impression/plan Acute COVID infection with weaknesslikely due to COVID-related Follow-up with treatment for COVID PT and OT Start empirical Decadron Add zinc sulfate Will follow Acute kidney injury on baseline CKDMay be due to acute COVID ATN Obtain urine studies for fractional excretion of sodium Nephrology consult in a.m. if no improvement DMinsulin sliding scale with Accu-Chek Resume home regimen History of diastolic CHFmild elevated proBNP, continue home regimen No IV fluid for now DVT prophylaxissubcutaneous Lovenox Full code Disposition possible hospital stay for 48 to 72 hours - Advance Directives Does patient have a Living Will: No Does patient have a Durable POA for Healthcare: No
[2023-12-24] MEDS ORDERED: LORAZEPAM 0.5 MG TABLET PO PRN (04:24)
[2023-12-24] MEDS ORDERED: MELATONIN 5 MG TABLET PO PRN (04:24)
[2023-12-24] MEDS: FUROSEMIDE 40 MG/4 ML VIAL IV ONE (04:24)
[2023-12-24] MEDS ORDERED: BENZONATATE 100 MG CAP PO PRN (04:24)
[2023-12-24] MEDS: dexAMETHasone 4 MG TAB PO SCH (04:25)
[2023-12-24 06:00] LABS: Creatine Phosphokinase 70 U/L (39-308)
[2023-12-24 06:02] VITALS: O2SAT 99
[2023-12-24] MEDS: INSULIN REGULAR (HUMAN) 100 UNIT/ML SQ SCH (06:15)
[2023-12-24] MEDS: dexAMETHasone 4 MG TAB ONE (06:40)
[2023-12-24] MEDS: ASPIRIN EC 81 MG TAB PO SCH (08:27)
[2023-12-24] MEDS: GUAIFENESIN 600 MG SA TAB PO SCH (08:27)
[2023-12-24] MEDS: ZINC SULFATE 220 MG CAP PO SCH (08:28)
[2023-12-24] MEDS: FAMOTIDINE 20 MG TAB PO SCH (09:00)
[2023-12-24] MEDS: HYDRALAZINE HCL 20 MG/ML VIAL IV PRN (09:48)
--- NOTE | 2023-12-24 10:51 | P.PN ---
Subjective Date of Service: 12/24/23 Chief Complaint: Weakness Subjective: No new changes <Katie Gallegos Dante - Last Filed: 12/24/23 10:51> Date of Service: 12/24/23 <Souleymane Vega - Last Filed: 12/24/23 12:00> Review of Systems 10-point ROS is otherwise unremarkable General: Fever, Weakness, Malaise <Katie Gallegos Dante - Last Filed: 12/24/23 10:51> Physical Examination - Vital Signs Temperature: 97.0 F Blood Pressure: 177/62 Pulse: 55 Respirations: 16 Pulse Ox (%): 98 - Physical Exam General: Alert, Oriented x3, Mild distress, Other (chills) HEENT: Atraumatic, Normocephalic Neck: Supple Respiratory: Normal air movement Cardiovascular: Regular rate/rhythm, Normal S1 S2 Capillary refill: <2 Seconds Gastrointestinal: Soft and benign Musculoskeletal: No clubbing Neurological: Normal speech, Normal tone, Normal affect Lymphatics: No axilla or inguinal lymphadenopathy External genitalia: Deferred Rectal: Deferred - Studies Laboratory Data (last 24 hrs) 12/24/23 12/24/23 12/24/23 00:40 00:40 00:40 WBC 6.40 Hgb 12.4 L Hct 38.0 L Plt Count 98 L PT 11.0 INR 1.00 Sodium 138 Potassium 5.1 BUN 32 H Creatinine 1.91 H Glucose 151 H Magnesium 2.8 H Total Bilirubin 0.3 AST 68 H ALT 61 Alkaline Phosphatase 45 Microbiology Data (last 24 hrs): 12/24/23 01:02 Nasopharnyx Influenza Type A Antigen Screen - Final 12/24/23 01:02 Nasopharnyx Influenza Type B Antigen Screen - Final <Katie Gallegos Dante - Last Filed: 12/24/23 10:51> - Studies Laboratory Data (last 24 hrs) 12/24/23 12/24/23 12/24/23 00:40 00:40 00:40 WBC 6.40 Hgb 12.4 L Hct 38.0 L Plt Count 98 L PT 11.0 INR 1.00 Sodium 138 Potassium 5.1 BUN 32 H Creatinine 1.91 H Glucose 151 H Magnesium 2.8 H Total Bilirubin 0.3 AST 68 H ALT 61 Alkaline Phosphatase 45 Microbiology Data (last 24 hrs): 12/24/23 01:02 Nasopharnyx Influenza Type A Antigen Screen - Final 12/24/23 01:02 Nasopharnyx Influenza Type B Antigen Screen - Final <Souleymane Vega - Last Filed: 12/24/23 12:00> Assessment And Plan - Plan - Plan Impression/plan Acute COVID infection with weaknesslikely due to COVID-related Follow-up with treatment for COVID PT and OT Start empirical Decadron Add zinc sulfate Will follow Acute kidney injury on baseline CKDMay be due to acute COVID ATN Obtain urine studies for fractional excretion of sodium Nephrology consult in a.m. if no improvement DMinsulin sliding scale with Accu-Chek Resume home regimen History of diastolic CHFmild elevated proBNP, continue home regimen No IV fluid for now DVT prophylaxissubcutaneous Lovenox Full code Disposition possible hospital stay for 48 to 72 hours - Advance Directives Does patient have a Living Will: No Does patient have a Durable POA for Healthcare: No <Katie Gallegos - Last Filed: 12/24/23 10:51> - Plan Pt seen and examined. I agree with the note by the ROUND KILN DRAWER. Pt denies any fever or SOB. Not on oxygen. Will continue decadron and zinc. Continue home meds for other chronic medical problems. <Souleymane Vega - Last Filed: 12/24/23 12:00>
[2023-12-24] MEDS: ENOXAPARIN 40 MG/0.4 ML SQ SCH (11:02)
--- NOTE | 2023-12-24 11:10 | P.CNS ---
Date of Consult: 12/24/23 Reason for Consult: OLESYA/ CKD Requesting Physician: Souleymane Vega Chief Complaint: Weakness History of Present Illness: 68-year-old male with past medical history of HTN/DM/peripheral neuropathy who presented because of increasing weakness fever since the last 3 days. Patient weakness initially has been been progressive over the last 2 days. Patient felt so weak today he was on the floor. The was found him on the floor and as encouraged him to come to the emergency room. Patient denies any nausea vomiting but admits to decreased p.o. intake. Admits to cough but no sputum. He denies any shortness of breath. Patient denies any sick contacts. Patient is sleepy but able to be aroused by answer simple questions, at bedside providing history. [id number] 00:17 This 68 yrs old Male presents to ER via Unassigned with complaints of Fall sp4 Injury. 03:32 Patient is six 8-year-old male who presents with complaint of generalized weakness also sp4 febrile on arrival. Patient has past medical history of blood loss anemia, Higgins's esophagus, diabetes mellitus type 2, acute kidney injury, history of CAD, hypertension. Patient medications include clopidogrel, escitalopram, Depakote, Tresiba, metoprolol, gabapentin, metformin, aspirin. Crestor, lisinopril, Protonix.. Allergies No Known Allergies Allergy (Verified 03/27/19 01:52) Home medications list reviewed: Yes Home Medications: Clopidogrel Bisulfate [Plavix*] 75 mg PO DAILY 05/16/14 Escitalopram [Lexapro] 10 mg PO DAILY 05/16/14 Divalproex Sodium [Depakote] 500 mg PO BID #60 tablet. 05/17/14 Insulin Degludec [Tresiba Flextouch U-200] 24 unit SQ DAILY 02/24/19 Metoprolol Mayberry/Hydrochlorothiaz [Metoprolol ER-Hctz 25-12.5 mg] 25 each PO DAILY 02/24/19 Gabapentin 300 mg PO TID 05/05/19 Metformin HCl 750 mg PO BID 05/05/19 Aspirin [Aspirin EC 81 MG] 81 mg PO DAILY 09/06/21 Rosuvastatin [Crestor*] 20 mg PO BEDTIME 09/06/21 Amlodipine [Norvasc] 10 mg PO DAILY 12/24/23 Dapagliflozin Propanediol [Farxiga] 10 mg PO DAILY 12/24/23 Insulin Glargine/Lixisenatide [Soliqua 100 Unit-33 Mcg/ml Pen] 24 units SQ DAILY 12/24/23 Valsartan [Diovan] 320 mg PO DAILY 12/24/23 - Past Medical/Surgical History Diabetic: Yes -: Diabetes mellitus type 2, insulin dependent -: History of TIA -: CAD -: History of colon cancer -: HTN -: Hyperlipidemia -: Lumbar, cervical spondylosis -: Osteomyelitis right great toe -: Depression -: GERD with hiatal hernia -: Tobacco abuse -: Cardiac stents -: Scrotal surgery -: Bilateral carpal tunnel surgery Psychosocial/ Personal History: The patient is . He has several children. - Family History Father Medical History: Cancer Notes: lung cancer. Mother Medical History: Diabetes, Stroke Notes: 3 aneurysisms. - Social History Smoking Status: Current every day smoker Alcohol use: No CD- Drugs: No Caffeine use: Yes Place of Residence: Home Review of Systems 10-point ROS is otherwise unremarkable General: Weakness, Malaise Neurological: Numbness Physical Examination Temp Pulse Resp BP Pulse Ox 97.0 F 55 16 177/62 H 98 12/24/23 10:52 12/24/23 10:52 12/24/23 10:52 12/24/23 10:52 12/24/23 10:52 General: In no apparent distress, Oriented x3, Cooperative HEENT: Atraumatic Neck: Supple Respiratory: Normal air movement Cardiovascular: No edema, Regular rate/rhythm Gastrointestinal: Soft and benign, Non-distended Musculoskeletal: No clubbing, No contractures Integumentary: No rashes, No cyanosis Neurological: Normal speech Laboratory Data (last 24 hrs) 12/24/23 12/24/23 12/24/23 00:40 00:40 00:40 WBC 6.40 Hgb 12.4 L Hct 38.0 L Plt Count 98 L PT 11.0 INR 1.00 Sodium 138 Potassium 5.1 BUN 32 H Creatinine 1.91 H Glucose 151 H Magnesium 2.8 H Total Bilirubin 0.3 AST 68 H ALT 61 Alkaline Phosphatase 45 Imagings Data: [id number] EXAM DESCRIPTION: CT - Chest Abd Pelvis Wo Con - 12/24/2023 6:57 am CLINICAL HISTORY: CHEST PAIN COMPARISON: 04/10/2022. TECHNIQUE: CT CHEST ABDOMEN PELVIS WITHOUT IV CONTRAST on 12/24/2023 12:34 AM CDT This exam was performed according to our departmental dose-optimization program, which includes automated exposure control, adjustment of the mA and/or kV according to patient size and/or use of iterative reconstruction technique. FINDINGS: Chest: The heart is borderline in size. There is no pericardial effusion. Intrathoracic lymph nodes are not enlarged. There is no pleural effusion, pleural thickening or pneumothorax. Central airways are patent. Lungs are clear with no consolidation, mass or interstitial lung disease. Abdomen: The liver is normal in appearance. There is no biliary dilatation. Gallbladder is unremarkable. The pancreas and spleen are normal in appearance. Adrenal glands are normal. Kidneys are mildly atrophic. Abdominal aorta is moderately calcified without aneurysm. There is no free air. There is no retroperitoneal adenopathy. Pelvis: There is no bowel obstruction. Urinary bladder is unremarkable. There is no free fluid. Appendix is normal. Skeleton: There are no acute osseous findings. No suspicious bony lesions. IMPRESSION: No definite acute process. [id number] EXAM DESCRIPTION: RAD - Chest Single View - 12/24/2023 12:59 am CLINICAL HISTORY: 68 years Male, CHEST PAIN COMPARISON: None. FINDINGS: Single portable AP supine view of the chest. Cardiac silhouette is likely within normal limits for technique. No consolidation, visualized pleural effusion, or pneumothorax identified within the limitations of supine technique. No acute osseous abnormality. IMPRESSION: No acute radiographic abnormality. Conclusions/Impression: Stage I OLESYA likely due to hypovolemia CKD III with Proteinuria -No NSAIDs -Gentle IVF with 1/2NS HTN with CKD/ CHF -Hydralazine prn -Restart Amlodipine Diastolic CHF, chronic -Daily weight -Low sodium diet DM II with Polyneuropathy & CKD -RISS -Restart Gabapentin as indicated -Hold Metformin Anemia in chronic illness Thrombocytopenia -Monitor CBC COVID-19 -Continue Decadron Hospitalist and ER notes reviewed Thank you kindly for the consultation
[2023-12-24 11:51] LABS: Anion Gap 13.1 mEq/L (5.0-15.0); Potassium 5.1 mEq/L (3.5-5.1)
--- NOTE | 2023-12-24 12:24 | RAD REPORT ---
EXAM DESCRIPTION: RAD - Chest Single View - 12/24/2023 12:59 am CLINICAL HISTORY: 68 years Male, CHEST PAIN COMPARISON: None. FINDINGS: Single portable AP supine view of the chest. Cardiac silhouette is likely within normal li mits for technique. No consolidation, visualized pleural effusion, or pneumothorax identified within the limitations of supine technique. No acute osseous abnormality. IMPRESSION: No acute radiographic abnormality. Electronically signed by: Rose Mary Mukherjee MD 12/24/2023 01:10 AM CDT Due to temporary technical issues with the PACS/Fluency reporting system, reports are being signed by the in house radiologist without review as a courtesy to ensure prompt reporting. The interpreting r adiologist is fully responsible for the content of the report.
--- NOTE | 2023-12-24 13:19 | RAD REPORT ---
EXAM DESCRIPTION: CT - Head Brain Wo Cont - 12/24/2023 6:57 am CLINICAL HISTORY: 68 years, Male, DIZZINESS COMPARISON: 04/10/2022 FINDINGS: Multiple transaxial tomograms of the brain were obtained from the base of the skull to the vertex without contrast. An individualized dose optimization technique, Automated Exposure Control, was utilized for the perfo rmed procedure. Brain: The brain demonstrate prominence of the sulci and gyri corresponding to mild brain atrophy. No acute intracranial hemorrhage. No midline shift and/or mass effect. Ventricles: Lateral ventricles and cisterns displace normal appearance. Vasculature: No visualized abnormalities in the arteries or dural venous sinuses. Scalp/skull: The calvarium demonstrate to be intact with no evidence for acute bony injuries. Sinuses: The visualized paranasal sinuses and mastoid air cells demonstrate to be clear. Orbits: No significant abnormalities in the visualized orbital structures. IMPRESSION: No acute intracranial hemorrhage. Mild brain atrophy. No significant interval change. Electronically signed by: Adin Phillips MD 12/24/2023 02:35 AM CDT Due to temporary technical issues with the PACS/Fluency reporting system, reports are being signed by the in house radiologist without review as a courtesy to ensure prompt reporting. The interpreting r adiologist is fully responsible for the content of the report.
--- NOTE | 2023-12-24 13:24 | RAD REPORT ---
EXAM DESCRIPTION: CT - Chest Abd Pelvis Wo Con - 12/24/2023 6:57 am CLINICAL HISTORY: CHEST PAIN COMPARISON: 04/10/2022. TECHNIQUE: CT CHEST ABDOMEN PELVIS WITHOUT IV CONTRAST on 12/24/2023 12:34 AM CDT This exam was performed according to our departmental dose-optimization program, which includes autom ated exposure control, adjustment of the mA and/or kV according to patient size and/or use of iterati ve reconstruction technique. FINDINGS: Chest: The heart is borderline in size. There is no pericardial effusion. Intrathoracic ly mph nodes are not enlarged. There is no pleural effusion, pleural thickening or pneumothorax. Central airways are patent. Lungs a re clear with no consolidation, mass or interstitial lung disease. Abdomen: The liver is normal in appearance. There is no biliary dilatation. Gallbladder is unremarkab le. The pancreas and spleen are normal in appearance. Adrenal glands are normal. Kidneys are mildly a trophic. Abdominal aorta is moderately calcified without aneurysm. There is no free air. There is no retroperi toneal adenopathy. Pelvis: There is no bowel obstruction. Urinary bladder is unremarkable. There is no free fluid. Appen jeovanny is normal. Skeleton: There are no acute osseous findings. No suspicious bony lesions. IMPRESSION: No definite acute process. . Electronically signed by: Zev Noyola MD 12/24/2023 02:53 AM CDT Due to temporary technical issues with the PACS/Fluency reporting system, reports are being signed by the in house radiologist without review as a courtesy to ensure prompt reporting. The interpreting r adiologist is fully responsible for the content of the report.
--- NOTE | 2023-12-24 13:46 | RAD REPORT ---
EXAM DESCRIPTION: RAD - Chest Single View - 12/24/2023 1:40 pm CLINICAL HISTORY: COPD Chest pain. COMPARISON: Chest Single View dated 12/24/2023; Chest Single View dated 03/02/2023; Chest Single View dated 04/10/2022; Chest Single View dated 09/05/2021 FINDINGS: Portable technique limits examination quality. The lungs are grossly clear. The heart is normal in size. No displaced fractures. IMPRESSION: No acute intrathoracic process suspected.
[2023-12-24] MEDS: NA CHLORIDE 0.9% 1,000 ML IV SCH (14:35)
--- NOTE | 2023-12-24 15:11 | RAD REPORT ---
EXAM DESCRIPTION: US - Renal Ultrasound-Complete - 12/24/2023 2:55 pm CLINICAL HISTORY: anu Flank pain COMPARISON: Renal Ultrasound-Complete dated 04/28/2023 FINDINGS: Both kidneys are normal in size, shape and echotexture. The right kidney measures 11.3 x 5.8 x 5.5 cm. No hydronephrosis, focal mass or perinephric fluid. The left kidney measures 10.9 x 6.3 x 5.5 cm. No hydronephrosis, focal mass or perinephric fluid. The urinary bladder is incompletely distended without gross abnormality seen. IMPRESSION: Unremarkable renal sonogram.
[2023-12-24] MEDS: carvediloL 12.5 MG TAB PO SCH (17:31)
--- NOTE | 2023-12-24 17:47 | CON ---
Date of Consultation: 12/24/2023 Reason For Consultation: Elevated BUN and creatinine. History Of Present Illness: This is a 68-year-old gentleman with significant past medical history of diabetes since 2009, complicated with neuropathy, no retinopathy, hypertension, seizure, hyperlipide vee, CAD, status post PTCA 3 times, last time cardiac cath back in 2019. The patient had chronic kid aimee disease, last seen back in November with creatinine 1.7, GFR 42. Apparently, patient came to the hosp ital complaining from weakness and fatigue for the last 2 days. The patient denies any nausea, any v omiting. The patient found to have elevation in blood pressure and found to have COVID. The patient for that reason has been admitted. The patient's lab showed elevation in creatinine 2.1, worsening. For that reason, we have been consulted. Patient denied taking any nonsteroidal. No IV contrast. Past Medical History: Includes 1.CAD, status post PTCA x3. 2.Hypertension. 3.Diabetes complicated with neuropathy and no retinopathy. 4.TIA. 5.Hyperlipidemia. Past Surgical History: Include: 1.Lumbar, cervical surgery. 2.PTCA. 3.Scrotal surgery. 4.Carpal tunnel. Family History: Positive for CAD and diabetes. Social History: Denied smoking. Denied drinking. Denied drugs abuse. Home Medications: Include Plavix, citalopram, insulin, gabapentin, metformin, aspirin, rosuvastatin, lisinopril, and pantoprazole. Review of Systems: Head and Neck: No red eye. No ear pain. GI: No nausea. No vomiting. : No polyuria. No dysuria. No hematuria. 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 Respiratory: No shortness of breath. Has cough. Cardiovascular: No chest pain. Endocrine: No polydipsia. Skin: No rash. Physical Examination: General: When I saw the patient, patient lying in bed on room air. Vital Signs: Blood pressure 162 /57, pulse of 75, afebrile. Chest: Clear to auscultation. Heart: S1, S2. Regular. Abdomen: Soft, nontender. Extremity: No edema. Neuro: Alert. No focality. Laboratory Data: Back in April 2023; creatinine 1.7, GFR of 42. The lab under our system back in February 2023; creatinine 1.6, GFR of 45. On this admission; creatinine 1.9 on December 23 with GFR of 3 8. Currently, his lab data; sodium 139, potassium 5.1, bicarb 37, BUN 21, creatinine 2.1, calcium 8. 8. Urinalysis was negative for infection. Current Medications: The patient on, it includes aspirin, albuterol, Tylenol, lorazepam, dexamethaso ne, Lasix, Pepcid. Assessment And Plan: 1.Acute kidney injury secondary to prerenal, dehydration, secondary to pneumonia. I am going to hol d the diuresis and I am going to start the patient on gentle hydration. We will send for basic rory p and I will send for chest x-ray for better evaluation of his fluid status and we will follow up. 2.Hypertension, not controlled, with the presence of acute kidney injury. Hold diuresis. Hold rosa nopril. I am going to add calcium channel praveen and beta-praveen and we will follow up the patient . 3.COVID pneumonia, as by Primary. 4.Alkalosis, mostly contraction alkalosis. We will start hydration and we will follow up the patien t. 5.Diabetes, as by Primary. Thank you, Dr. Vega, for allowing us to participate in the care of your patient. Time spent examining the patient [id number], reviewing data, lab and radiology, placing order, disc ussing the case with the patient, discussing the case with the hat steamer including hospitalist and nursing staff more than 75 minutes. YEMI Voice ID: [id number] Report ID: [id number]
[2023-12-24 19:14] LABS: Specific Gravity 1.019 (1.005-1.030); Sqamous Epithelial None Seen /HPF (None Seen); Urine Bacteria None Seen /HPF (<20); Urine Bilirubin NEGATIVE (Negative); Urine Blood Negative (Negative); Urine Clarity Clear (Clear); Urine Color Colorless (Yellow); Urine Culture Reflex Order NOT NEEDED; Urine Glucose 4+ (Over) (Negative); Urine Ketones TRACE (Negative); Urine Micro Reflex YN NO BILL MICROSCOPIC; Urine Nitrite NEGATIVE (Negative); Urine Protein 1+ (Negative); Urine RBC <5 /HPF (None Seen); Urine Urobilinogen Normal (Normal); Urine WBC <5 /HPF (<5); Urine pH 5.5 (5.0-7.0)
[2023-12-24] MEDS: ACETAMINOPHEN 500 MG TAB PO PRN (21:39)
[2023-12-24] MEDS: NACHLORIDE 0.45% 1,000 ML IV SCH (21:40)
[2023-12-25 04:08] LABS: Absolute Lymphocytes (CBC) 0.8 K/uL (0.7-4.9); Absolute Monocytes 0.6 K/uL (0.1-1.3); Basophils % 0.6 % (0-1.3); Hematocrit 33.3 % (39.6-49.0); Hemoglobin 11.1 g/dL (13.6-17.9); Lymphocytes % 14.5 % (15.3-44.8); MCH 29.3 pg (27.0-35.0); MCHC 33.4 g/dL (32.0-36.0); MCV 87.6 fL (80-100); MPV 10.7 fL (7.6-11.3); Monocytes % 11.8 % (3.3-12.3); Neutrophils % 73.1 % (41.7-73.7); Nucleated Red Blood Cells % 0.2 % (0-0); Red Cell Distribution Width 16.3 % (12.1-15.2)
[2023-12-25 04:12] LABS: Platelets 77 thou/uL (152-406)
[2023-12-25 04:37] LABS: Albumin 2.7 g/dL (3.4-5.0); Albumin/Globulin Ratio 0.8 (1.1-1.8); Anion Gap 10.7 mEq/L (5.0-15.0); Bilirubin Total 0.3 mg/dL (0.2-1.0); Globulin 3.5 g/dL (2.3-3.5); Phosphorus 4.4 mg/dL (2.5-4.9); Potassium 4.7 mEq/L (3.5-5.1); Protein, Total 6.2 g/dL (6.4-8.2); Thyroid Stimulating Hormone 1.63 uIU/mL (0.358-3.740); Troponin High Sensitivity 29.2 pg/mL (<58.9); Uric Acid 6.7 mg/dL (3.5-7.2)
[2023-12-25] MEDS ORDERED: HYDRALAZINE HCL 20 MG/ML VIAL IV PRN (08:13)
[2023-12-25 08:34] VITALS: TEMP 98.2
--- NOTE | 2023-12-25 08:43 | P.PN ---
Subjective Date of Service: 12/25/23 Chief Complaint: Weakness Subjective: Improving Review of Systems 10-point ROS is otherwise unremarkable General: As per HPI Neurological: As per HPI Physical Examination - Vital Signs Temperature: 98.2 F Blood Pressure: 171/57 Pulse: 64 Respirations: 18 Pulse Ox (%): 96 - Physical Exam General: Alert, In no apparent distress, Oriented x3 HEENT: Atraumatic, Normocephalic Neck: Supple Respiratory: Normal air movement Cardiovascular: Normal pulses, Regular rate/rhythm, Normal S1 S2 Capillary refill: <2 Seconds Gastrointestinal: Soft and benign Musculoskeletal: No clubbing, No swelling Integumentary: No rashes Neurological: Normal speech, Normal tone, Normal affect Lymphatics: No axilla or inguinal lymphadenopathy External genitalia: Deferred Rectal: Deferred Assessment And Plan - Plan - Plan Impression/plan Acute COVID infection with weaknesslikely due to COVID-related Follow-up with treatment for COVID PT and OT Start empirical Decadron Add zinc sulfate Will follow 12/24 pt is feeling better, asking about going home. Will see how PT goes today. Acute kidney injury on baseline CKDMay be due to acute COVID ATN Obtain urine studies for fractional excretion of sodium Nephrology consult in a.m. if no improvement 12/24 Creatinine improving DMinsulin sliding scale with Accu-Chek Resume home regimen History of diastolic CHFmild elevated proBNP, continue home regimen No IV fluid for now DVT prophylaxissubcutaneous Lovenox Full code Disposition possible hospital stay for 48 to 72 hours - Advance Directives Does patient have a Living Will: No Does patient have a Durable POA for Healthcare: No
[2023-12-25] MEDS: HYDRALAZINE HCL 25 MG TABLET PO SCH (09:00)
[2023-12-25] MEDS: AMLODIPINE 10 MG TAB PO SCH (09:00)
[2023-12-25 09:07] VITALS: BP 171/60
--- NOTE | 2023-12-25 12:37 | P.DS ---
Admission Date: 12/24/23 Discharge Date: 12/25/23 Disposition: ROUTINE DISCHARGE Discharge Condition: GOOD Reason for Admission: Weakness Brief History of Present Illness: 68-year-old male with past medical history of HTN/DM/peripheral neuropathy who presented because of increasing weakness fever since the last 3 days. Patient weakness initially has been been progressive over the last 2 days. Patient felt so weak today he was on the floor. The was found him on the floor and as encouraged him to come to the emergency room. Patient denies any nausea vomiting but admits to decreased p.o. intake. Admits to cough but no sputum. He denies any shortness of breath. Patient denies any sick contacts. Patient is sleepy but able to be aroused by answer simple questions, at bedside providing history. On arrival in the ED blood pressure was elevated in the 180s over 70s, temp of 102.5. Chest x-ray shows no acute infiltrate. COVID screen was positive. Head CT was negative. Creatinine elevated at 1.9, previous base line of 1.3-1.6 Hospital Course: Pt is a a 68yo male with past medical history of HTN, DM, and peripheral neuropathy who presented with increasing weakness and fever for 3 days. On admission, lab studies showed positive COVID 19 and Cr 1.9. We admitted pt in isolated room and gave decadron and zinc. Pt did not require oxygen. He felt better and requested to be discharged. Renal function improved with IVF. We discharged him with decadron 4mg po daily for 1 week. Pt was advised to wear mask around his family members for the next 10 days. He was in NAD prior to discharge. Vital Signs/Physical Exam: Temp Pulse Resp BP Pulse Ox 98.2 F 64 18 171/60 H 96 12/25/23 08:43 12/25/23 09:00 12/25/23 08:43 12/25/23 09:00 12/25/23 08:43 Laboratory Data at Discharge: WBC 5.50 thou/uL (4.3-10.9) 12/25/23 03:42 Hgb 11.1 g/dL (13.6-17.9) L D 12/25/23 03:42 Hct 33.3 % (39.6-49.0) L 12/25/23 03:42 Plt Count 77 thou/uL (152-406) L 12/25/23 03:42 PT 11.0 SECONDS (9.5-12.5) 12/24/23 00:40 INR 1.00 12/24/23 00:40 Sodium 137 mEq/L (136-145) 12/25/23 03:42 Potassium 4.7 mEq/L (3.5-5.1) 12/25/23 03:42 BUN 34 mg/dL (7-18) H 12/25/23 03:42 Creatinine 1.63 mg/dL (0.70-1.30) H 12/25/23 03:42 Glucose 146 mg/dL (74-106) H 12/25/23 03:42 Uric Acid 6.7 mg/dL (3.5-7.2) 12/25/23 03:42 Phosphorus 4.4 mg/dL (2.5-4.9) 12/25/23 03:42 Magnesium 2.8 mg/dL (1.6-2.4) H 12/24/23 00:40 Total Bilirubin 0.3 mg/dL (0.2-1.0) 12/25/23 03:42 AST 32 U/L (15-37) 12/25/23 03:42 ALT 38 U/L (16-61) 12/25/23 03:42 Alkaline Phosphatase 32 U/L (45-117) L D 12/25/23 03:42 Triglycerides 133 mg/dL (<150) 12/25/23 03:42 Cholesterol 90 mg/dL (<200) 12/25/23 03:42 HDL Cholesterol 32 mg/dL (40-60) L 12/25/23 03:42 Cholesterol/HDL Ratio 2.81 12/25/23 03:42 Home Medications: Clopidogrel Bisulfate [Plavix*] 75 mg PO DAILY 05/16/14 Escitalopram [Lexapro] 10 mg PO DAILY 05/16/14 Divalproex Sodium [Depakote] 500 mg PO BID #60 tablet. 05/17/14 Insulin Degludec [Tresiba Flextouch U-200] 24 unit SQ DAILY 02/24/19 Metoprolol Mayberry/Hydrochlorothiaz [Metoprolol ER-Hctz 25-12.5 mg] 25 each PO DAILY 02/24/19 Gabapentin 300 mg PO TID 05/05/19 Metformin HCl 750 mg PO BID 05/05/19 Aspirin [Aspirin EC 81 MG] 81 mg PO DAILY 09/06/21 Rosuvastatin [Crestor*] 20 mg PO BEDTIME 09/06/21 Amlodipine [Norvasc*] 10 mg PO DAILY 12/24/23 Dapagliflozin Propanediol [Farxiga] 10 mg PO DAILY 12/24/23 Insulin Glargine/Lixisenatide [Soliqua 100 Unit-33 Mcg/ml Pen] 24 units SQ DAILY 12/24/23 Valsartan [Diovan] 320 mg PO DAILY 12/24/23 Zinc Sulfate [Zinc Sulfate*] 220 mg PO DAILY 7 Days #14 cap 12/25/23 dexAMETHasone [Decadron] 4 mg PO DAILY 7 Days #7 tab 12/25/23 New Medications: dexAMETHasone [Decadron] 4 mg PO DAILY 7 Days #7 tab Zinc Sulfate [Zinc Sulfate*] 220 mg PO DAILY 7 Days #14 cap Physician Discharge Instructions: Continue ad annalee activity. Take decadron 4mg po daily and Zinc sulfate 220mg po BID for 1 week. Continue other home meds. Follow up with PCP within 2 weeks Diet: AHA Activity: Ad annalee Followup: Jo-Ann Persaud FNP [Primary Care Provider] -
--- NOTE | 2023-12-28 13:11 | EKG ---
Test Date: 2023-12-24 Test Time: 00:10:57 Skid Strapper: LUCHO MEASUREMENT RESULTS: Intervals: Rate: 72 NM: 150 QRSD: 136 QT: 404 QTc: 442 [place]: P: 45 NM: 150 QRS: 89 T: 81 INTERPRETIVE STATEMENTS: Normal sinus rhythm Right bundle branch block Septal infarct, age undetermined Abnormal ECG Compared to ECG 03/02/2023 17:41:27 Myocardial infarct finding now present Electronically Signed On 12-28-23 13:04:26 CDT by Walter De Dios
== END 2023-12-25 13:33 | disposition home or self-care (01) | DRG 177 ==
LOC: ER 00:12 → 2ND 04:20
PROVIDERS: ADMIT Internal Medicine; ATTEND Hospitalist
DX: U07.1 COVID-19 (principal); J12.82 Pneumonia due to coronavirus disease 2019; N17.0 Acute kidney failure with tubular necrosis; I13.0 Hypertensive heart and chronic kidney disease with heart failure and stage 1 through stage 4 chronic kidney disease, or unspecified chronic kidney disease; I50.32 Chronic diastolic (congestive) heart failure; E87.3 Alkalosis; N18.30 Chronic kidney disease, stage 3 unspecified; E11.22 Type 2 diabetes mellitus with diabetic chronic kidney disease; E11.40 Type 2 diabetes mellitus with diabetic neuropathy, unspecified; E11.42 Type 2 diabetes mellitus with diabetic polyneuropathy; D63.1 Anemia in chronic kidney disease; D69.6 Thrombocytopenia, unspecified; E78.5 Hyperlipidemia, unspecified; K21.9 Gastro-esophageal reflux disease without esophagitis; I25.10 Atherosclerotic heart disease of native coronary artery without angina pectoris; I25.2 Old myocardial infarction; F17.200 Nicotine dependence, unspecified, uncomplicated; Z79.4 Long term (current) use of insulin; Z79.82 Long term (current) use of aspirin; Z79.84 Long term (current) use of oral hypoglycemic drugs; Z79.02 Long term (current) use of antithrombotics/antiplatelets; Z86.73 Personal history of transient ischemic attack (TIA), and cerebral infarction without residual deficits; Z79.899 Other long term (current) drug therapy; Z85.038 Personal history of other malignant neoplasm of large intestine; W19.XXXA Unspecified fall, initial encounter; Y93.9 Activity, unspecified; Y92.9 Unspecified place or not applicable; Y99.9 Unspecified external cause status
CPT/HCPCS: 36415; 70450; 71045; 71250; 74176; 76770; 80048; 80053; 80061; 80069; 80076; 81001; 82550; 82947; 83605; 83735; 83880; 83970; 84443; 84484; 84550; 85025; 85610; 87040; 87804; 87811; 93005; 97116; 97161; 97165; 97530; 99285; J0360; J1650; J2543; J7030; J7040; J7050; J8540